=== PATIENT | male | born 1935 | race Caucasian/White ===

== ENCOUNTER 2020-03-29 11:46 | Outpatient (CLI) | payer MEDICARE, SELFPAY ==
--- NOTE | 2020-03-29 12:45 | USCV_ITS ---
Michael Osullivan Age: 84 Gender: M : 1935 Exam Date: 03/29/2020 12:34 Ordering Phys: uSni Luciano MD ([email or web address]) Technologist: Rey Hurtado Exam Location: [facility] [place] Indication: BP: 150 / 78 HR: 51 Rhythm: Sinus Technical Quality: Adequate MEASUREMENTS (Male / Female) Normal Values 2D ECHO LV Diastolic Diameter PLAX 4.5 cm 4.2 - 5.9 / 3.9 - 5.3 cm LV Systolic Diameter PLAX 3.2 cm IVS Diastolic Thickness 1.1 cm 0.6 - 1.0 / 0.6 - 0.9 cm IVS Systolic Thickness 1.7 cm LVPW Diastolic Thickness 1.2 cm 0.6 - 1.0 / 0.6 - 0.9 cm LVPW Systolic Thickness 1.3 cm LVOT Diameter 2.0 cm LV Ejection Fraction 2D Teich 55.6 % LV Ejection Fraction MOD 2C 76.3 % LV Ejection Fraction 2C AL 76.6 % LA Diameter 4.0 cm LA Width 4.6 cm LA Height 5.0 cm RA Width 4.6 cm RA Height 5.2 cm Aorta at Sinotubular Diameter 0.7 cm M-MODE LV Diastolic Diameter MM 5.5 cm 4.2 - 5.9 / 3.9 - 5.3 cm LV Systolic Diameter MM 3.0 cm LV Ejection Fraction MM Teich 76.8 % IVS Diastolic Thickness MM 1.3 cm 0.6 - 1.0 / 0.6 - 0.9 cm IVS Systolic Thickness MM 1.7 cm LVPW Diastolic Thickness MM 1.2 cm 0.6 - 1.0 / 0.6 - 0.9 cm LVPW Systolic Thickness MM 2.0 cm RV Diastolic Diameter MM 2.2 cm Aortic Annulus Diameter 3.9 cm LA Ao Ratio MM 1.1 MV E Point Septal Separation 0.9 cm DOPPLER AV Peak Velocity 210.0 cm/s LVOT Peak Velocity 94.0 cm/s AV Area Cont Eq vti 1.3 cm squared AV Area Cont Eq pk 1.4 cm squared MV Area PHT 1.8 cm squared Mitral E to A Ratio 0.7 MV E' Velocity 80.0 cm/s Mitral E to LV E' Septal Ratio 14.8 TR Peak Velocity 154.3 cm/s TR Peak Gradient 9.5 mmHg TV Peak E Velocity 82.0 cm/s Right Atrial Pressure 3.0 mmHg Pulmonary Artery Systolic Pressu 12.5 mmHg PV Peak Velocity 94.0 cm/s FINDINGS Left Ventricle Normal left ventricular size and systolic function, EF 70 %. Mild left ventricular hypertrophy. No regional wall motion abnormalities. Grade I/IV diastolic dysfunction (abnormal relaxation filling pattern), normal to mildly elevated filling pressures. Right Ventricle Normal right ventricular size and systolic function. Right Atrium Mildly increased right atrial size. Left Atrium Mildly increased left atrial size. Mitral Valve Trace to mild mitral valve regurgitation. Mild mitral annular calcification. Aortic Valve Thickened aortic valve. Tricuspid Valve No gross abnormalities noted Pulmonic Valve No gross abnormalities noted Pericardium No thickening/calcification of the pericardium. Aorta Plaque seen in the ascending aorta. CONCLUSIONS Normal left ventricular size and systolic function, EF 70 %. Mild left ventricular hypertrophy. No regional wall motion abnormalities. Grade I/IV diastolic dysfunction (abnormal relaxation filling pattern), normal to mildly elevated filling pressures. Mild biatrial enlargement Trace to mild mitral valve regurgitation. Mild mitral annular calcification. Thickened aortic valve. There is no pericardial effusion. There are no intracardiac masses. No similar previous studies are available for comparison Dr Suni Luciano MD FACC (Electronically Signed) Final Date: 29 March 2020 17:19 S
== END 2020-03-29 11:47 | disposition home or self-care (01) ==
LOC: US 11:56
PROVIDERS: PCP Family Medicine; Visit Provider Internal Medicine Cardiovascular Disease
DX: I25.10 Atherosclerotic heart disease of native coronary artery without angina pectoris (principal); I08.0 Rheumatic disorders of both mitral and aortic valves
CPT/HCPCS: 93306

== ENCOUNTER 2020-04-21 08:33 | Outpatient (CLI) | payer MEDICARE, SELFPAY ==
[2020-04-21 09:05] VITALS: BMI 26.4
--- NOTE | 2020-04-21 09:33 | ECG_ITS ---
[facility] Test Date: 2020-04-21 Pat Name: Michael Osullivan Department: Room: Gender: Male [employer]: : 1935 Requested By: Suni Luciano Order Number: [id number] Carisa MD: Interpretive Statements Lung unchanged pre/post procedure Intraprocedure shortess of breath Symptoms resoled by discharge [id number]
--- NOTE | 2020-04-21 09:34 | NMCV_ITS ---
NM eliazar perf SPECT r/s* [id number] Michael Osullivan Age: 84 Gender: M : 1935 Exam Date: 04/21/2020 09:55 Ordering Phys: Suni Luciano MD ([email or web address]) Technologist: ROXIE Espino Exam Location: [facility] Indications: ASHD STRESS TEST Please see separate stress test report in [facility] for full findings IMAGE PROTOCOL Rest/Stress 1 Lexiscan Day Radiopharmaceutical Dose (mCi) Administration Site Administered by Rest: Tc-99m 10.6 IV ROXIE Morales Sestamibi Stress:Tc-99m 31.6 IV ROXIE Espino Sestamibi Rest: 21-Apr-2020 60 Discovery 630 Stress: 21-Apr-2020 30 Discovery 630 0.4mg Lexiscan. Images obtained in supine and prone position. SPECT RESULTS Technical Quality: Good Raw Data Analysis: Normal Image Corrections: Patient motion artifact - motion correction applied to rest and stress. Summed Stress Score: 1 Summed Rest Score: 2 Summed Difference Score: 0 PERFUSION FINDINGS Small to moderate area of decreased tracer uptake in the inferior wall regions with no significant reversibility FUNCTIONAL RESULTS (calculated via Gated SPECT) Stress Image LV EF (%): 72 Stress EDV (mL):106 TID: 0.76 Stress ESV (mL):30 FUNCTIONAL FINDINGS: Segmental wall motion analysis revealing no gross wall motion normalities IMPRESSIONS 1. Myocardial perfusion imaging revealing area of slightly decreased persistent tracer uptake in the inferior wall region, suggestive of myocardial scarring versus attenuation artifact. 2. Normal LV ejection fraction of 72%. 3. LV wall motion analysis revealing no gross wall motion normalities. 4. Normal LV volume. No significant coronary ischemia, based on the above findings Dr Suni Luciano MD FACC (Electronically Signed) Final Date: 21 April 2020 20:21 S
--- NOTE | 2020-04-21 11:22 | SUR.PREOP ---
Patient reports no pain or discomfort prior to the start of the procedure.
[2020-04-21] MEDS: regadenoson 0.4 Mg/5 ml Syringe IVP (11:32)
[2020-04-21 11:57] VITALS: BP 163/84; PULSE 65
== END 2020-04-21 08:34 | disposition home or self-care (01) ==
LOC: RAD 08:41 → CDL 08:42
PROVIDERS: PCP Family Medicine; Visit Provider Internal Medicine Cardiovascular Disease
DX: I25.10 Atherosclerotic heart disease of native coronary artery without angina pectoris (principal); R06.02 Shortness of breath
CPT/HCPCS: 78452; 93017; A9500; J2785

== ENCOUNTER 2020-08-18 09:35 | Outpatient (CLI) | payer MEDICARE, SELFPAY ==
--- NOTE | 2020-08-19 07:28 | ONC CON_ITS ---
Dr. Betancourt New Patient Note Patient: Michael Osullivan Unit #: [id number]: 1935 Dicatated By: Jim Betancourt M.D.Date of Visit: Aug 18, 2020 Onc MED New Patient/Consult Referring Physician: Michael Ford Chief Complaint: Bladder cancer. 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 He has a known history of primary membranous glomerulonephritis, initially diagnosed in 2011 and treated with cyclophosphamide. In 2016 he had noncomplete remission after second line treatment with rituximab. During follow-up he has slowly advancing disease, and he has had associated chronic kidney disease with creatinine stable in the range of 2.5 to 3 mg/dL. On 06/21/2020 he had presented to the [facility] emergency room with gross hematuria. His CT abdomen/pelvis showed a lobulated soft tissue density along the posterior aspect of the bladder measuring 6.0 x 5.0 cm. A partly fluid-filled structure projecting directly adjacent to the right posterior paracentral bladder measuring 5.5 x 3.5 cm appeared consistent with a diverticulum. A solid lobulation with the diverticulum measuring 2.0 x 1.5 cm. The findings appeared highly suspicious for bladder malignancy extending into bladder diverticula. There was no retroperitoneal adenopathy or other evidence of metastatic disease. He was seen for urology consultation by Dr. Michael Ford. His outpatient cystoscopy confirmed presence of a bladder lesion. On 07/07/2020 he underwent cystoscopy with transurethral resection and fulguration of bladder neoplasm. The dominant finding was a rounded up lesion centered a little left of the midline posteriorly above the trigone measuring in the 2 to 5 cm diameter range. The remainder of the bladder mucosa appeared normal. The lesion appeared to be superficially necrotic and it appeared to extend more or less into or through the bladder wall as opposed to a surface lesion protruding into the bladder lumen. The lesion was partially resected and it was then fulgurated in its entirety. Pathology showed high-grade neuroendocrine carcinoma. 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 It did show lamina propria invasion. There was no definitive muscularis propria present for assessment. There was no lymphovascular invasion identified. He is seen now for further management. Since his cystoscopy/TURBT procedure he has continued to have some burning with urination, managed adequately with phenazopyridine. He has had no recurrence of hematuria. He has otherwise been feeling fine. 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 He has not had any recent change in his activity tolerance. His ECOG score is 0. His appetite has been good and his weight has been stable. He has no fever or night sweats. He does not complain of shortness of breath, cough, or chest pain. He has no GI complaints. He has no significant joint or bone pain. He does not complain of headache or dizziness. He has no focal neurologic symptoms. Past Medical History: His medical history includes atrial fibrillation, chronic kidney disease, coronary artery disease, gout, history of membranous glomerulonephritis, hypertension, and type II diabetes. Past Surgical History: He underwent cystoscopy with transurethral resection and fulguration of bladder tumor on 07/07/2020. His other surgical/procedural history consists of coronary artery bypass, coronary stent placement, bilateral inguinal hernia repair with mesh in 1997, and left knee surgery for torn cartilage in 1953. Medications: Allopurinol (150 mg) Tablet Oral daily, amLODIPine Besylate (10 mg) Tablet Oral daily, Aspirin 81 Tablet, enteric coated Oral daily, Atorvastatin Calcium (20 mg) Tablet Oral daily, Furosemide (40 mg) Tablet Oral b.i.d., hydrALAZINE HCl (50 mg) Tablet Oral t.i.d., Klor-Con 10 (10 meq) Tablet, controlled release Oral daily, Losartan Potassium (100 mg) Tablet Oral daily Allergies: No Known Allergies. Social History: Mr. Osullivan is . He is originally from [place], but he grew up in [place]. 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 He is retired. He has a history of smoking for a period of about 10 years. He quit by age 26. He does not drink alcohol. Family History: Father at age 64 and mother at age 46, cause unknown to the patient, as they were living in [place]. A sister at age 74. Review Of Symptoms: Constitutional - He has pretty good energy. He is the primary caregiver for his , has dementia. His appetite has been good and his weight is stable. He has no fever or night sweats. ECOG score is 0, Eyes - No change in vision, ENMT - No hearing loss or tinnitus. No sinus congestion/drainage. No mouth sores. No sore throat or difficulty swallowing, Hematologic/Lymphatic - He has noticed that he bruises more easily, Respiratory - No shortness of breath. No cough. No pleuritic pain or hemoptysis, Cardiovascular - No angina pain. No palpitations, Gastrointestinal - No nausea or vomiting. No heartburn or acid reflux. No diarrhea or constipation. No blood in the stool or black stools, Genitourinary (M) - He has had some mild dysuria since the cystoscopy/TURBT. He has had no further hematuria. No urinary frequency. No urgency or incontinence, Musculoskeletal - No joint or bone pain, Integumentary - No skin rash or other skin changes, Neurologic - No headache or dizziness. No numbness or tingling. No other focal neurologic symptoms, Psychiatric - No anxiety or depression. No insomnia. Vital Signs: Performed on Aug 18, 2020 10:51: 0, 0, 0.00, 0.00 sq.m, 98 %, 80 /min, 185 /min (HIGH), 154/69 mm(hg) (HIGH), 97.7 F (LOW), and 164 lbs (HIGH). Physical Examination: Constitutional - He appears to be in good general health, Eyes - Sclerae nonicteric. Conjunctivae clear, ENMT - No lesions noted in the oral cavity, Neck - No mass or thyromegaly, Hematologic/Lymphatic - No cervical, clavicular, or axillary adenopathy, Respiratory - Lungs are clear with good air movement bilaterally, Cardiovascular - Heart rhythm is regular. There is a II/ systolic murmur. There is no gallop or rub noted, Abdomen - Soft and non-tender. Liver and spleen are not enlarged. There is no abdominal mass or ascites noted and there is no inguinal adenopathy, Back/Spine - No spine or CVA tenderness noted, Extremities - There is slight edema. Dorsalis pedis pulses are palpable bilaterally, Integumentary - No rashes. There are a few small actinic lesions on the ears. There are no other suspicious skin lesions noted, Neurologic - No focal neurologic deficits noted. Problem List: 1. High-grade neuroendocrine carcinoma of the urinary bladder. He underwent cystoscopy with transurethral resection and fulguration of the bladder tumor on 07/07/2020. 2. 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 3. Hypertension. 4. Type 2 diabetes, currently not requiring medication. 5. Coronary artery disease with previous coronary artery bypass surgery. 6. Atrial fibrillation. 7. Gout. 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 He underwent cystoscopy with transurethral resection and fulguration of the bladder tumor on 07/07/2020. 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 His management is somewhat problematic in the context of his multiple underlying medical illnesses, most significantly the membranous glomerulonephritis and chronic kidney disease. It is further complicated by the fact that he is the primary caregiver for his , which significantly limits his access to medical care. At least initially I do want to get him set up for staging PET/CT before so I will make sure that he does not have evidence of metastatic disease. If the cancer is localized, I think the best option, per NCCN guidelines, is to proceed with neoadjuvant chemotherapy with carboplatin/etoposide. If he does have a good response to the chemotherapy, he can then proceed to consolidation radiation, assuming we would be able to accommodate his social requirements. That may, however, be very challenging. In the meantime, I also will request next generation sequencing on his tumor, as we ultimately may have to transition to immunotherapy or targeted therapy. Signed By: Jim Betancourt M.D. <<Signature on File>>
== END 2020-08-18 09:36 | disposition home or self-care (01) ==
LOC: ONCMED 09:38
PROVIDERS: PCP Family Medicine; Visit Provider Internal Medicine Medical Oncology
DX: C7A.8 Other malignant neuroendocrine tumors (principal); E11.22 Type 2 diabetes mellitus with diabetic chronic kidney disease; I12.9 Hypertensive chronic kidney disease with stage 1 through stage 4 chronic kidney disease, or unspecified chronic kidney disease; N18.4 Chronic kidney disease, stage 4 (severe); Z87.891 Personal history of nicotine dependence; Z63.6 Dependent relative needing care at home
CPT/HCPCS: 99205

== ENCOUNTER 2020-09-22 09:45 | Outpatient (CLI) | payer MEDICARE, MEDICAID, SELFPAY ==
[2020-09-22 10:51] LABS: Basophils # 0.1 10^3/uL (0.0-0.1); Basophils % 0.5 %; Eosinophils # 0.1 10^3/uL (0.0-0.8); Eosinophils % 0.9 %; Hematocrit 24.9 % (42.0-52.0); Hemoglobin 7.6 g/dL (11.7-16.6); Lymphocytes # 1.3 10^3/uL (0.8-4.8); Lymphocytes % 13.5 %; Mean Corpuscular HGB Conc 30.5 g/dL (30.0-36.0); Mean Corpuscular Hemoglobin 27.8 pg (28.0-34.0); Mean Corpuscular Volume 91.2 fL (80-94); Mean Platelet Volume 9.4 fL (7.4-10.4); Monocytes # 0.5 10^3/uL (0.2-0.9); Monocytes % 5.3 %; Neutrophils # 7.59 10^3/uL (1.8-7.7); Neutrophils % 79.2 %; Nucleated Red Blood Cells % 0 %; Platelet Count 232 10^3/cmm (130-400); Red Blood Count 2.73 10^6/uL (4.1-5.3); Red Cell Distribution Width 14.6 % (12.1-15.1); White Blood Count 9.6 10^3/uL (4.0-10.0)
[2020-09-22 11:16] LABS: Alanine Aminotransferase 6 U/L (0-41); Albumin Level 3.7 g/dL (3.5-5.2); Alkaline Phosphatase 91 IU/L (40-130); Anion Gap 18.3 (5-19); Aspartate Amino Transferase 10 U/L (0-40); Blood Urea Nitrogen 71 mg/dL (8-23); Calcium 8.9 mg/dL (8.5-10.5); Carbon Dioxide 22 mmol/L (22-29); Chloride 105 mmol/L (98-107); Globulin 2.5 g/dL (1.3-4.6); Glucose 131 mg/dL (65-115); Osmolality Calculated 315 mOsm/kg (285-295); Potassium 4.3 mmol/L (3.5-5.1); Sodium 141 mmol/L (136-145); Total Bilirubin 0.4 mg/dL (0.15-1.2); Total Protein 6.2 g/dL (6.6-8.7)
[2020-09-22 12:10] LABS: Iron 17 ug/dL (59-158); Percent Saturation 5.9 % (20-50); Total Iron Binding Capacity 284 mcg/dl; Unsaturated Iron Binding 267 ug/dL (112-347)
[2020-09-22] MEDS: sodium chloride 0.9% 250 ML 75 ML IV (12:10)
[2020-09-22 12:27] LABS: Vitamin B12 699 pg/mL (232-1245)
[2020-09-22] MEDS: ondansetron 2 mg/ML SDV 2 mL 8 MG IV (12:30)
[2020-09-22 15:00] VITALS: BP 138/65; PULSE 81; RESP 18; TEMP 37.1; O2SAT 95
[2020-09-22] MEDS: acetaminophen 325 mg Tablet 650 MG PO (15:00)
[2020-09-22] MEDS: diphenhydrAMINE 25 mg Capsule PO (15:00)
[2020-09-22 15:15] VITALS: BP 123/55; PULSE 66; RESP 18; TEMP 37.1; O2SAT 95
[2020-09-22 15:30] VITALS: BP 135/76; PULSE 73; RESP 18; TEMP 37.1; O2SAT 96
[2020-09-22 16:00] VITALS: BP 120/75; PULSE 70; RESP 18; TEMP 37.2; O2SAT 96
[2020-09-22 16:34] VITALS: BP 144/78; PULSE 76; RESP 18; TEMP 36.7; O2SAT 96
== END 2020-09-22 09:46 | disposition home or self-care (01) ==
LOC: ONCMED 09:48
PROVIDERS: PCP Family Medicine; Visit Provider Internal Medicine Medical Oncology
DX: Z51.11 Encounter for antineoplastic chemotherapy (principal); C67.8 Malignant neoplasm of overlapping sites of bladder; Z79.899 Other long term (current) drug therapy
CPT/HCPCS: 36430; 80053; 82607; 83540; 83550; 85025; 86850; 86900; 86920; 96367; 96375; 96413; 96417; J1100; J2405; J7040; J7050; J9045; J9181; P9016

== ENCOUNTER 2020-09-28 15:00 | Outpatient (CLI) | payer MEDICARE, SELFPAY ==
[2020-09-28 19:06] LABS: Basophils % 0.6 %; Eosinophils % 0.3 %; Hematocrit 24.7 % (42.0-52.0); Hemoglobin 7.3 g/dL (11.7-16.6); Lymphocytes # 1.3 10^3/uL (0.8-4.8); Lymphocytes % 21.1 %; Mean Corpuscular HGB Conc 29.6 g/dL (30.0-36.0); Mean Corpuscular Hemoglobin 26.9 pg (28.0-34.0); Mean Corpuscular Volume 91.1 fL (80-94); Mean Platelet Volume 10.2 fL (7.4-10.4); Monocytes # 0.1 10^3/uL (0.2-0.9); Monocytes % 1.1 %; Neutrophils # 4.81 10^3/uL (1.8-7.7); Neutrophils % 75.6 %; Nucleated Red Blood Cells % 0 %; Platelet Count 181 10^3/cmm (130-400); Red Blood Count 2.71 10^6/uL (4.1-5.3); Red Cell Distribution Width 14.1 % (12.1-15.1); White Blood Count 6.4 10^3/uL (4.0-10.0)
[2020-09-28 19:25] LABS: Iron 169 ug/dL (59-158); Percent Saturation 71.3 % (20-50); Total Iron Binding Capacity 237 mcg/dl; Unsaturated Iron Binding 68 ug/dL (112-347)
[2020-09-28 19:41] LABS: Vitamin B12 549 pg/mL (232-1245)
== END 2020-09-28 15:01 ==
LOC: ONCMED 09-29 09:15
PROVIDERS: PCP Family Medicine; Visit Provider Internal Medicine Medical Oncology
DX: C67.8 Malignant neoplasm of overlapping sites of bladder (principal)
CPT/HCPCS: 82607; 83540; 83550; 85025

== ENCOUNTER 2020-10-05 14:44 | Outpatient (CLI) | payer MEDICARE, SELFPAY ==
[2020-10-05 18:53] LABS: Eosinophils # 0.1 10^3/uL (0.0-0.8); Eosinophils % 6.1 %; Hematocrit 22.7 % (42.0-52.0); Hemoglobin 6.9 g/dL (11.7-16.6); Mean Corpuscular HGB Conc 30.4 g/dL (30.0-36.0); Mean Corpuscular Hemoglobin 27.3 pg (28.0-34.0); Mean Corpuscular Volume 89.7 fL (80-94); Mean Platelet Volume 10.9 fL (7.4-10.4); Monocytes # 0.1 10^3/uL (0.2-0.9); Monocytes % 5.3 %; Neutrophils % 1.7 %; Nucleated Red Blood Cells % 0 %; Platelet Count 61 10^3/cmm (130-400); Red Blood Count 2.53 10^6/uL (4.1-5.3); Red Cell Distribution Width 13.6 % (12.1-15.1); White Blood Count 1.1 10^3/uL (4.0-10.0)
[2020-10-05 18:59] LABS: Neutrophils # 0.02 10^3/uL (1.8-7.7)
[2020-10-05 19:34] LABS: Alanine Aminotransferase 8 U/L (0-41); Albumin Level 3.6 g/dL (3.5-5.2); Alkaline Phosphatase 87 IU/L (40-130); Anion Gap 14.5 (5-19); Aspartate Amino Transferase 8 U/L (0-40); Blood Urea Nitrogen 66 mg/dL (8-23); Carbon Dioxide 23 mmol/L (22-29); Chloride 106 mmol/L (98-107); Globulin 2.1 g/dL (1.3-4.6); Glucose 158 mg/dL (65-115); Osmolality Calculated 310 mOsm/kg (285-295); Potassium 4.5 mmol/L (3.5-5.1); Sodium 139 mmol/L (136-145); Total Bilirubin 0.2 mg/dL (0.15-1.2); Total Protein 5.7 g/dL (6.6-8.7)
[2020-10-05 20:08] LABS: Calcium 8.2 mg/dL (8.5-10.5)
== END 2020-10-05 14:45 | disposition home or self-care (01) ==
LOC: ONCMED 10-06 09:14
PROVIDERS: PCP Family Medicine; Visit Provider Internal Medicine Medical Oncology
DX: C67.8 Malignant neoplasm of overlapping sites of bladder (principal)
CPT/HCPCS: 80053; 85025

== ENCOUNTER 2020-10-07 06:17 | Outpatient (CLI) | payer MEDICARE, MEDICAID, SELFPAY ==
[2020-10-07] VITALS (11 sets, daily range): BP systolic 126–134; BP diastolic 57–69; PULSE 64–69; RESP 18; TEMP 36.6–37.1; O2SAT 97–98
[2020-10-07] MEDS: diphenhydrAMINE 25 mg Capsule PO (10:45)
[2020-10-07] MEDS: sodium chloride 0.9% 250 ML 999 ML IV (10:45)
[2020-10-07] MEDS: acetaminophen 325 mg Tablet 650 MG PO (10:45)
[2020-10-07] MEDS: FUROsemide 10 mg/mL SDV 2mL 20 MG IV (12:55)
== END 2020-10-07 06:18 | disposition home or self-care (01) ==
LOC: ONCMED 06:19
PROVIDERS: PCP Family Medicine; Visit Provider Internal Medicine Medical Oncology
DX: C67.8 Malignant neoplasm of overlapping sites of bladder (principal)
CPT/HCPCS: 36430; 86850; 86900; 86920; J1940; J7050; P9040

== ENCOUNTER 2020-10-12 14:21 | Outpatient (CLI) | payer MEDICARE, SELFPAY ==
[2020-10-12 18:07] LABS: Basophils % 0.3 %; Eosinophils % 0.6 %; Hematocrit 27.6 % (42.0-52.0); Hemoglobin 8.5 g/dL (11.7-16.6); Lymphocytes # 1.4 10^3/uL (0.8-4.8); Lymphocytes % 41.1 %; Mean Corpuscular HGB Conc 30.8 g/dL (30.0-36.0); Mean Corpuscular Hemoglobin 27.8 pg (28.0-34.0); Mean Corpuscular Volume 90.2 fL (80-94); Mean Platelet Volume 10.1 fL (7.4-10.4); Monocytes # 0.4 10^3/uL (0.2-0.9); Monocytes % 13.1 %; Neutrophils # 1.35 10^3/uL (1.8-7.7); Neutrophils % 40.1 %; Nucleated Red Blood Cells % 0 %; Platelet Count 85 10^3/cmm (130-400); Red Blood Count 3.06 10^6/uL (4.1-5.3); Red Cell Distribution Width 13.8 % (12.1-15.1); White Blood Count 3.4 10^3/uL (4.0-10.0)
[2020-10-12 18:40] LABS: Alanine Aminotransferase 7 U/L (0-41); Albumin Level 3.4 g/dL (3.5-5.2); Alkaline Phosphatase 81 IU/L (40-130); Anion Gap 12.8 (5-19); Aspartate Amino Transferase 10 U/L (0-40); Blood Urea Nitrogen 39 mg/dL (8-23); Calcium 8.1 mg/dL (8.5-10.5); Carbon Dioxide 26 mmol/L (22-29); Chloride 104 mmol/L (98-107); Glucose 141 mg/dL (65-115); Osmolality Calculated 300 mOsm/kg (285-295); Potassium 3.8 mmol/L (3.5-5.1); Sodium 139 mmol/L (136-145); Total Bilirubin 0.2 mg/dL (0.15-1.2); Total Protein 5.4 g/dL (6.6-8.7)
== END 2020-10-12 14:22 | disposition home or self-care (01) ==
LOC: ONCMED 10-13 08:27
PROVIDERS: PCP Family Medicine; Visit Provider Internal Medicine Medical Oncology
DX: C67.8 Malignant neoplasm of overlapping sites of bladder (principal)
CPT/HCPCS: 80053; 85025

== ENCOUNTER 2020-10-19 14:18 | Outpatient (CLI) | payer MEDICARE, SELFPAY ==
[2020-10-19 16:43] LABS: Alanine Aminotransferase < 5 U/L (0-41); Albumin Level 3.2 g/dL (3.5-5.2); Alkaline Phosphatase 87 IU/L (40-130); Anion Gap 14.1 (5-19); Aspartate Amino Transferase 12 U/L (0-40); Blood Urea Nitrogen 37 mg/dL (8-23); Calcium 7.9 mg/dL (8.5-10.5); Carbon Dioxide 25 mmol/L (22-29); Chloride 104 mmol/L (98-107); Globulin 2.2 g/dL (1.3-4.6); Glucose 118 mg/dL (65-115); Osmolality Calculated 298 mOsm/kg (285-295); Potassium 4.1 mmol/L (3.5-5.1); Sodium 139 mmol/L (136-145); Total Bilirubin 0.2 mg/dL (0.15-1.2); Total Protein 5.4 g/dL (6.6-8.7)
[2020-10-19 16:51] LABS: Basophils % 0.5 %; Eosinophils % 0.2 %; Hematocrit 29.7 % (42.0-52.0); Hemoglobin 9.2 g/dL (11.7-16.6); Lymphocytes # 1.6 10^3/uL (0.8-4.8); Lymphocytes % 27.2 %; Mean Corpuscular Hemoglobin 28.8 pg (28.0-34.0); Mean Corpuscular Volume 92.8 fL (80-94); Mean Platelet Volume 9.4 fL (7.4-10.4); Monocytes # 0.6 10^3/uL (0.2-0.9); Monocytes % 10.2 %; Neutrophils # 3.41 10^3/uL (1.8-7.7); Nucleated Red Blood Cells % 0 %; Platelet Count 259 10^3/cmm (130-400); Red Cell Distribution Width 16.8 % (12.1-15.1); White Blood Count 5.7 10^3/uL (4.0-10.0)
== END 2020-10-19 14:19 | disposition home or self-care (01) ==
PROVIDERS: PCP Family Medicine; Visit Provider Internal Medicine Medical Oncology
DX: C67.8 Malignant neoplasm of overlapping sites of bladder (principal)
CPT/HCPCS: 80053; 85025

== ENCOUNTER 2020-10-20 08:49 | Outpatient (CLI) | payer MEDICARE, MEDICAID, SELFPAY ==
[2020-10-20] MEDS: sodium chloride 0.9% 250 ML 75 ML IV (11:24)
[2020-10-20] MEDS: ondansetron 2 mg/ML SDV 2 mL 8 MG IV (11:24)
--- NOTE | 2020-11-02 07:34 | ONC FU_ITS ---
[facility] Patient Note Patient: Michael Osullivan Unit #: [id number]: 1935 Dictated By: Vandana DockeryDate of Visit: Oct 20, 2020 Onc MED Follow-Up/Prog Note Chief Complaint: Bladder cancer. 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 He has a known history of primary membranous glomerulonephritis, initially diagnosed in 2011 and treated with cyclophosphamide. In 2016 he had noncomplete remission after second line treatment with rituximab. During follow-up he has slowly advancing disease, and he has had associated chronic kidney disease with creatinine stable in the range of 2.5 to 3 mg/dL. On 06/21/2020 he had presented to the [facility] emergency room with gross hematuria. His CT abdomen/pelvis showed a lobulated soft tissue density along the posterior aspect of the bladder measuring 6.0 x 5.0 cm. A partly fluid-filled structure projecting directly adjacent to the right posterior paracentral bladder measuring 5.5 x 3.5 cm appeared consistent with a diverticulum. A solid lobulation with the diverticulum measuring 2.0 x 1.5 cm. The findings appeared highly suspicious for bladder malignancy extending into bladder diverticula. There was no retroperitoneal adenopathy or other evidence of metastatic disease. He was seen for urology consultation by Dr. Michael Ford. His outpatient cystoscopy confirmed presence of a bladder lesion. On 07/07/2020 he underwent cystoscopy with transurethral resection and fulguration of bladder neoplasm. The dominant finding was a rounded up lesion centered a little left of the midline posteriorly above the trigone measuring in the 2 to 5 cm diameter range. The remainder of the bladder mucosa appeared normal. The lesion appeared to be superficially necrotic and it appeared to extend more or less into or through the bladder wall as opposed to a surface lesion protruding into the bladder lumen. The lesion was partially resected and it was then fulgurated in its entirety. Pathology showed high-grade neuroendocrine carcinoma. 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 It did show lamina propria invasion. There was no definitive muscularis propria present for assessment. There was no lymphovascular invasion identified. Mr Osullivan was by Dr Betancourt on 08/18/2020 for further management. Since his cystoscopy/TURBT procedure he had continued to have some burning with urination, managed adequately with phenazopyridine. He had no recurrence of hematuria. He had otherwise been feeling fine. 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 He had PET/CT imaging on 08/28/2020 which reported a posterior bladder mass measuring 7.9 x 5.8 cm with markedly increased FDG activity; however malignant uptake cannot be differentiated from physiologic urinary activity. A right sided bladder diverticulum measured 2.2 x 4.4 cm. Subcentimeter pelvic nodes are too small to characterize. There were no findings for metastatic disease. Also Caris next generation sequencing was reported on August 31, 2020. Results with therapy associations biomarker TMB result was high, 11 mut/mb which reports benefit with pembrolizumab. The MSI was stable, mismatch repair status was proficient and NTRK 1/2/3 fusion not detected; PD-L1 been disease SP1 42) was negative; AP 300 pathogenic variant exon 26 p.[id number]; KMT2D pathogenic variant exon 31 p.[id number]; K-carolyn pathogenic variant exon 2 p.G12V; RB1 pathogenic variant exon 19 p.G61/fs; T p53 pathogenic variant exon/ p.[id number]. The MSI was reported as stable, tumor mutational burden was high at 11 and genomic loss of heterozygosity was low at 12%. Immunohistochemistry results reported MLH1 positive MSH2 positive MSH6 positive PD-L1 (SP142) negative; PMS2 positive. With those results Mr. Osullivan was offered treatment with carboplatin etoposide. His etoposide is oral given his caregiver status for his with dementia and that he cannot present to the office on day 2 and 3. He began his first cycle on September 22, 2020. His hemoglobin at that time was 7.6. He presented for labs on October 05, 2020 at which time his hemoglobin was 6.9, his platelet count was 61,000 and his ANC was 20. He did receive 2 units of packed red blood cells on October 07, 2020. His lab recheck on October 12, 2020 reported a hemoglobin of 8.5, platelet count of 85,000 and ANC of 1350 without growth factor support. He was asymptomatic. Mr. Osullivan is here today for follow-up. He is due for cycle 2-day 1 carboplatin etoposide. He has no new concerns today. He states overall he is doing well. He continues to care for his at home and is doing this well. He denies any new pain. He has had no fever or chills. He denies any mouth sores, sore throat or difficulty swallowing. He denies any orthopnea, cough or hemoptysis. He denies chest pain or palpitations. He states his appetite is good his energy is fair. He states he does get tired but recovers well with rest. He denies any diarrhea or constipation. He denies any peripheral neuropathy symptoms at this time. His ECOG is 1. Past Medical History: Atrial fibrillation Chronic kidney disease Coronary artery disease Gout History of membranous glomerulonephritis Hypertension Type II diabetes Past Surgical History: Coronary artery bypass Coronary stent placement Cystoscopy with transurethral resection and fulguration of bladder tumor in 2020 Bilateral inguinal hernia repair with mesh in 1997 Left knee surgery for torn cartilage in 1953 Allergies: No Known Allergies. Medications: Allopurinol (150 mg) Tablet Oral daily amLODIPine Besylate (10 mg) Tablet Oral daily Aspirin 81 Tablet, enteric coated Oral daily Atorvastatin Calcium (20 mg) Tablet Oral daily Furosemide (40 mg) Tablet Oral b.i.d. hydrALAZINE HCl (50 mg) Tablet Oral t.i.d. Klor-Con 10 (10 meq) Tablet, controlled release Oral daily Losartan Potassium (100 mg) Tablet Oral daily Family History: Father at age 64 and mother at age 46, cause unknown to the patient, as they were living in [place]. A sister at age 74. Social History: Mr. Osullivan is . Mr. Osullivan has never smoked. He has no history of drinking. He is originally from [place], but he grew up in [place]. 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 He is retired. He has a history of smoking for a period of about 10 years. He quit by age 26. He does not drink alcohol. Review Of Symptoms: <See Above> Vital Signs: Performed on Oct 20, 2020 10:25 Height - 70.00 in Weight - 160.0 lbs (LOW) BSA - 1.90 sq.m BMI - 22.96 Temperature - 98.4 F Pulse - 70 /min Respiration - 18 /min BP - 150/62 mm(hg) (HIGH) O2 Sat - 97 % Pain - 0,1 - No physically strenuous activity, but ambulatory and able to carry out light or sedentary work (e.g. office work, light house work). (ECOG) Physical Examination: Constitutional Alert, oriented, no acute distress. Skin pink, warm and dry. Head Normocephalic; atraumatic. Eyes Conjunctivae and sclerae are clear and without icterus. Pupils are reactive and equal. ENMT No oral exudates, ulcers, masses, thrush or mucositis. Oropharynx clear. Tongue normal. Neck Supple without masses or thyromegaly. No jugular venous distension. Hematologic/Lymphatic No petechiae or purpura. No tender or palpable lymph nodes in the cervical or supraclavicular areas. Respiratory Lungs are clear to auscultation without rhonchi or wheezing. Cardiovascular Regular rate and rhythm of heart without murmurs,clicks, gallops or rubs. Abdomen Non-tender, non-distended, no masses or ascites. Good bowel sounds noted in all quads. No guarding or rebound tenderness. No pulsatile masses. Back/Spine Non-tender to palpation. Extremities No visible deformities, no cyanosis, clubbing or edema. Musculoskeletal No tenderness or swelling, normal range of motion without obvious weakness. Integumentary No rashes or lesions. Neurologic No sensory or motor deficits, normal cerebellar function, normal gait. Psychiatric Alert and oriented times three. Coherent speech. Verbalizes understanding of our discussions today. Laboratory:Test performed on Oct 20, 2020 10:51 Creatinine 2.4 mg/dL Cr Clearance (Est) 24.11 mL/min Impression: 1. High-grade neuroendocrine carcinoma of the urinary bladder. He underwent cystoscopy with transurethral resection and fulguration of the bladder tumor on 07/07/2020. 2. 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 3. Hypertension. 4. Type 2 diabetes, currently not requiring medication. 5. Coronary artery disease with previous coronary artery bypass surgery. 6. Atrial fibrillation. 7. Gout. Plan/Problems Addressed at this Visit: 1. High-grade neuroendocrine carcinoma of the urinary bladder. He underwent cystoscopy with transurethral resection and fulguration of the bladder tumor on 07/07/2020. 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 His management is somewhat problematic in the context of his multiple underlying medical illnesses, most significantly the membranous glomerulonephritis and chronic kidney disease. It is further complicated by the fact that he is the primary caregiver for his , which significantly limits his access to medical care. He had PET/CT imaging on 08/28/2020 which reported a posterior bladder mass measuring 7.9 x 5.8 cm with markedly increased FDG activity; however malignant uptake cannot be differentiated from physiologic urinary activity. A right sided bladder diverticulum measured 2.2 x 4.4 cm. Subcentimeter pelvic nodes are too small to characterize. There were no findings for metastatic disease. Also Caris next generation sequencing was reported on August 31, 2020. Results with therapy associations biomarker TMB result was high, 11 mut/mb which reports benefit with pembrolizumab. The MSI was stable, mismatch repair status was proficient and NTRK 1/2/3 fusion not detected; PD-L1 been disease SP1 42) was negative; AP 300 pathogenic variant exon 26 p.[id number]; KMT2D pathogenic variant exon 31 p.[id number]; K-carolyn pathogenic variant exon 2 p.G12V; RB1 pathogenic variant exon 19 p.G61/fs; T p53 pathogenic variant exon/ p.[id number]. The MSI was reported as stable, tumor mutational burden was high at 11 and genomic loss of heterozygosity was low at 12%. Immunohistochemistry results reported MLH1 positive MSH2 positive MSH6 positive PD-L1 (SP142) negative; PMS2 positive. With those results Mr. Osullivan was offered neoadjuvant chemotherapy with carboplatin/etoposide. His etoposide is oral given his caregiver status for his with dementia and that he cannot present to the office on day 2 and 3. He began his first cycle on September 22, 2020. His hemoglobin at that time was 7.6. He presented for labs on October 05, 2020 at which time his hemoglobin was 6.9, his platelet count was 61,000 and his ANC was 20. He did receive 2 units of packed red blood cells on October 07, 2020. His lab recheck on October 12, 2020 reported a hemoglobin of 8.5, platelet count of 85,000 and ANC of 1350 without growth factor support. He was asymptomatic. Per Dr Betancourt's July 2020 note, if he does have a good response to the chemotherapy, he can then proceed to consolidation radiation, assuming we would be able to accommodate his social requirements. That may, however, be very challenging. A. Proceed with cycle 2 carboplatin etoposide. B. Continue current antiemetics as they are working well. C. Labs from October 19, 2020 were reviewed in detail and discussed with Mr. Osullivan and a copy was given to him. WBC 5.7, hemoglobin 9.2, platelets 10 59,000, ANC is 3410. Potassium 4.1 random glucose 118 creatinine improved at 2.4 calcium 7.8 LFTs are normal. D. I have requested a PA for Neupogen to be started on October 25 as he does do oral etoposide at home and we have no way to administer Neulasta even the Onpro over the weekend. He did have chemotherapy-induced neutropenia with an ANC of 20 with cycle 1. He reported no symptoms and there is no evidence of any local emergency room visits during that time. E. I have asked for weekly CBC CMP. F. He is due for CT of the abdomen pelvis without contrast in 3 weeks for follow-up of neuroendocrine cancer after 2 cycles of chemotherapy. G. We will plan to see him back in 4 weeks with CBC CMP at which time we will review the CT of the abdomen pelvis and determine further plan of care. H. Mr. Osullivan was encouraged to contact us in the interim should questions or problems arise. I. Total time spent on Mr. Mckee care today including review of his records prior to his visit, discussion of his current treatment plan and side effect of medication/management and post visit documentation was 55 minutes. Signed By: Vandana Dockery-, [facility] Jim Betancourt MD <<Signature on File>>
== END 2020-10-20 08:50 | disposition home or self-care (01) ==
PROVIDERS: PCP Family Medicine; Visit Provider Internal Medicine Medical Oncology
DX: Z51.11 Encounter for antineoplastic chemotherapy (principal); C67.8 Malignant neoplasm of overlapping sites of bladder; I48.20 Chronic atrial fibrillation, unspecified; E11.22 Type 2 diabetes mellitus with diabetic chronic kidney disease; N18.9 Chronic kidney disease, unspecified; E11.59 Type 2 diabetes mellitus with other circulatory complications; I25.10 Atherosclerotic heart disease of native coronary artery without angina pectoris; M10.9 Gout, unspecified; I10 Essential (primary) hypertension; N05.2 Unspecified nephritic syndrome with diffuse membranous glomerulonephritis; Z79.899 Other long term (current) drug therapy
CPT/HCPCS: 96367; 96413; 96417; 99215; J1100; J2405; J7040; J7050; J9045; J9181

== ENCOUNTER 2020-10-26 13:15 | Outpatient (CLI) | payer MEDICARE, MEDICAID, SELFPAY ==
[2020-10-26 15:40] LABS: Basophils # 0.1 10^3/uL (0.0-0.1); Basophils % 1.3 %; Eosinophils % 0.3 %; Hematocrit 29.4 % (42.0-52.0); Hemoglobin 9.2 g/dL (11.7-16.6); Lymphocytes # 1.2 10^3/uL (0.8-4.8); Mean Corpuscular HGB Conc 31.3 g/dL (30.0-36.0); Mean Corpuscular Hemoglobin 29.6 pg (28.0-34.0); Mean Corpuscular Volume 94.5 fL (80-94); Mean Platelet Volume 9.4 fL (7.4-10.4); Neutrophils # 2.58 10^3/uL (1.8-7.7); Neutrophils % 65.6 %; Nucleated Red Blood Cells % 0 %; Platelet Count 227 10^3/cmm (130-400); Red Blood Count 3.11 10^6/uL (4.1-5.3); White Blood Count 3.9 10^3/uL (4.0-10.0)
[2020-10-26 16:30] LABS: Alanine Aminotransferase 6 U/L (0-41); Albumin Level 3.4 g/dL (3.5-5.2); Alkaline Phosphatase 89 IU/L (40-130); Anion Gap 13.3 (5-19); Aspartate Amino Transferase 15 U/L (0-40); Blood Urea Nitrogen 34 mg/dL (8-23); Carbon Dioxide 24 mmol/L (22-29); Chloride 106 mmol/L (98-107); Globulin 2.1 g/dL (1.3-4.6); Glucose 130 mg/dL (65-115); Osmolality Calculated 297 mOsm/kg (285-295); Potassium 4.3 mmol/L (3.5-5.1); Sodium 139 mmol/L (136-145); Total Bilirubin 0.5 mg/dL (0.15-1.2); Total Protein 5.5 g/dL (6.6-8.7)
[2020-10-26 16:41] LABS: Slide Review Slide Review Perform
== END 2020-10-26 13:16 | disposition home or self-care (01) ==
PROVIDERS: PCP Family Medicine; Visit Provider Nurse Practitioner
DX: C67.8 Malignant neoplasm of overlapping sites of bladder (principal)
CPT/HCPCS: 80053; 85025

== ENCOUNTER 2020-10-29 08:55 | Outpatient (CLI) | payer MEDICARE, MEDICAID, SELFPAY ==
--- NOTE | 2020-10-29 09:14 | CT_ITS ---
WS: [id number] CT scan of the abdomen and pelvis with Oral and without IV contrast. Additional two-dimensional coron al and sagittal reconstruction was performed. 10/29/2020 Clinical Data: NEUROENDOCRINE CANCER OF THE BLADDER Comparison: CT abdomen and pelvis, 06/21/2020. DLP: 787.[address] scans at [facility] use at least one of these dose optimization techniques: automat ed exposure control; mA and/or kV adjustment per patient size (includes targeted exams where dose is matched to clinical indication); or iterative reconstruction. Findings: The lower lungs show no nodules, masses or effusions. There is a large hiatal hernia. The liver, spleen, adrenal glands and pancreas are normal. There are numerous gallstones in the gallb ladder. The kidneys show no cysts, masses, hydronephrosis or renal calculi. The abdominal aorta is normal in size with calcification of the wall. No appendicitis or diverticulitis is seen. There are numerous diverticula in the descending and sigmo id colons. Oral contrast is in the stomach, small bowel and colon and there is no bowel dilatation. No abscess, adenopathy, ascites, mass, obstruction or free air is seen. The bladder demonstrates a posterior mass which measures up to 0.8 x 9.6 cm. There is a right bladder diverticulum measuring 2.1 x 4.9 cm. No inguinal hernia is seen. 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 No bony metastatic lesions are seen. CT/CT abdomen pelvis wo con [id number] Impression: 1. Posterior bladder mass which may be larger when compared to prior exam. Cholelithiasis and hiatal hernia. 3. Negative for bony metastatic lesions.
[2020-10-29] MEDS: iohexol 300 mg/mL 50 mL Btl PO (09:55)
== END 2020-10-29 08:56 | disposition home or self-care (01) ==
PROVIDERS: PCP Family Medicine; Visit Provider Nurse Practitioner
DX: C67.8 Malignant neoplasm of overlapping sites of bladder (principal); K80.20 Calculus of gallbladder without cholecystitis without obstruction; K44.9 Diaphragmatic hernia without obstruction or gangrene
CPT/HCPCS: 74176; Q9967

== ENCOUNTER 2020-11-17 05:37 | Outpatient (RCR) | payer MEDICARE, MEDICAID, SELFPAY ==
[2020-11-02 14:45] LABS: Basophils % 0.6 %; Eosinophils % 1.8 %; Hematocrit 25.6 % (42.0-52.0); Hemoglobin 8.1 g/dL (11.7-16.6); Lymphocytes # 1.4 10^3/uL (0.8-4.8); Lymphocytes % 83.3 %; Mean Corpuscular HGB Conc 31.6 g/dL (30.0-36.0); Mean Corpuscular Hemoglobin 28.8 pg (28.0-34.0); Mean Corpuscular Volume 91.1 fL (80-94); Mean Platelet Volume 10.1 fL (7.4-10.4); Monocytes # 0.1 10^3/uL (0.2-0.9); Monocytes % 3.6 %; Neutrophils % 10.7 %; Nucleated Red Blood Cells % 0 %; Platelet Count 64 10^3/cmm (130-400); Red Blood Count 2.81 10^6/uL (4.1-5.3); Red Cell Distribution Width 15.4 % (12.1-15.1); White Blood Count 1.7 10^3/uL (4.0-10.0)
[2020-11-02 15:32] LABS: Neutrophils # 0.18 10^3/uL (1.8-7.7)
[2020-11-02 15:33] LABS: Slide Review Slide Review Perform
[2020-11-02 15:54] LABS: Alanine Aminotransferase 13 U/L (0-41); Albumin Level 3.5 g/dL (3.5-5.2); Alkaline Phosphatase 99 IU/L (40-130); Anion Gap 13.5 (5-19); Aspartate Amino Transferase 16 U/L (0-40); Blood Urea Nitrogen 42 mg/dL (8-23); Calcium 7.9 mg/dL (8.5-10.5); Carbon Dioxide 23 mmol/L (22-29); Chloride 105 mmol/L (98-107); Globulin 2.1 g/dL (1.3-4.6); Glucose 124 mg/dL (65-115); Osmolality Calculated 298 mOsm/kg (285-295); Potassium 3.5 mmol/L (3.5-5.1); Sodium 138 mmol/L (136-145); Total Bilirubin 0.2 mg/dL (0.15-1.2); Total Protein 5.6 g/dL (6.6-8.7)
[2020-11-03] MEDS: acetaminophen 325 mg Tablet 650 MG PO (11:00)
[2020-11-03] MEDS: sodium chloride 0.9% 250 ML 999 ML IV (11:00)
[2020-11-03] MEDS: diphenhydrAMINE 25 mg Capsule PO (11:00)
[2020-11-03 11:10] VITALS: BP 143/68; PULSE 52; RESP 18; TEMP 36.6; O2SAT 98
[2020-11-03 11:25] VITALS: BP 138/65; PULSE 50; RESP 18; TEMP 36.6; O2SAT 98
[2020-11-03 11:40] VITALS: BP 128/64; PULSE 52; RESP 18; TEMP 36.6; O2SAT 98
[2020-11-03 12:10] VITALS: BP 131/62; PULSE 52; RESP 18; TEMP 36.6; O2SAT 98
[2020-11-03 12:55] VITALS: BP 138/64; PULSE 52; RESP 18; TEMP 36.6; O2SAT 98
[2020-11-03] MEDS: FUROsemide 10 mg/mL SDV 2mL 20 MG IV (12:55)
[2020-11-03 14:25] VITALS: BP 140/70; PULSE 54; RESP 18; TEMP 36.6; O2SAT 98
[2020-11-09 16:51] LABS: Hematocrit 30.4 % (42.0-52.0); Hemoglobin 9.9 g/dL (11.7-16.6); Mean Corpuscular HGB Conc 32.6 g/dL (30.0-36.0); Mean Corpuscular Hemoglobin 29.8 pg (28.0-34.0); Mean Corpuscular Volume 91.6 fL (80-94); Mean Platelet Volume 9.9 fL (7.4-10.4); Platelet Count 95 10^3/cmm (130-400); Red Blood Count 3.32 10^6/uL (4.1-5.3); Red Cell Distribution Width 15.8 % (12.1-15.1); White Blood Count 6.9 10^3/uL (4.0-10.0)
[2020-11-09 17:07] LABS: Alanine Aminotransferase 7 U/L (0-41); Albumin Level 3.5 g/dL (3.5-5.2); Alkaline Phosphatase 109 IU/L (40-130); Anion Gap 14.6 (5-19); Aspartate Amino Transferase 13 U/L (0-40); Blood Urea Nitrogen 31 mg/dL (8-23); Carbon Dioxide 26 mmol/L (22-29); Chloride 105 mmol/L (98-107); Globulin 2.1 g/dL (1.3-4.6); Glucose 131 mg/dL (65-115); Osmolality Calculated 302 mOsm/kg (285-295); Potassium 3.6 mmol/L (3.5-5.1); Sodium 142 mmol/L (136-145); Total Bilirubin 0.2 mg/dL (0.15-1.2); Total Protein 5.6 g/dL (6.6-8.7)
[2020-11-09 17:12] LABS: Slide Review Slide Review Perform
[2020-11-09 18:39] LABS: Absolute Segmented Neutrophil 1.9 10/cmm (1.6-7.1); Band Neutrophils Absolute 0.8 10^3/cmm (0.0-1.2); Eosinophils 0 %; Lymphocytes 38 %; Lymphocytes Absolute 2.7 10^3/cmm (1.2-3.4); Monocytes Absolute 0.6 10^3/cmm (0.1-0.6); Segmented Neutrophils 27 %; Total Cells Counted 100 (0-100)
[2020-11-09 18:40] LABS: Absolute Neutrophil 2.6 10^3/cmm (1.4-6.5); Platelet Estimate Decreased (Normal)
[2020-11-16 15:51] LABS: Basophils % 0.5 %; Eosinophils % 0.2 %; Hematocrit 30.8 % (42.0-52.0); Hemoglobin 9.8 g/dL (11.7-16.6); Lymphocytes # 2.1 10^3/uL (0.8-4.8); Lymphocytes % 24.8 %; Mean Corpuscular HGB Conc 31.8 g/dL (30.0-36.0); Mean Corpuscular Hemoglobin 29.2 pg (28.0-34.0); Mean Corpuscular Volume 91.7 fL (80-94); Mean Platelet Volume 9.8 fL (7.4-10.4); Monocytes # 0.8 10^3/uL (0.2-0.9); Monocytes % 9.2 %; Neutrophils # 5.18 10^3/uL (1.8-7.7); Neutrophils % 62.4 %; Nucleated Red Blood Cells % 0 %; Platelet Count 243 10^3/cmm (130-400); Red Blood Count 3.36 10^6/uL (4.1-5.3); Red Cell Distribution Width 17.9 % (12.1-15.1); White Blood Count 8.3 10^3/uL (4.0-10.0)
[2020-11-16 16:27] LABS: Alanine Aminotransferase < 5 U/L (0-41); Albumin Level 3.3 g/dL (3.5-5.2); Alkaline Phosphatase 90 IU/L (40-130); Anion Gap 13.8 (5-19); Aspartate Amino Transferase 13 U/L (0-40); Blood Urea Nitrogen 41 mg/dL (8-23); Calcium 7.9 mg/dL (8.5-10.5); Carbon Dioxide 28 mmol/L (22-29); Chloride 104 mmol/L (98-107); Globulin 2.1 g/dL (1.3-4.6); Glucose 99 mg/dL (65-115); Osmolality Calculated 304 mOsm/kg (285-295); Potassium 3.8 mmol/L (3.5-5.1); Sodium 142 mmol/L (136-145); Total Bilirubin 0.3 mg/dL (0.15-1.2); Total Protein 5.4 g/dL (6.6-8.7)
--- NOTE | 2020-12-06 08:10 | ONC FU_ITS ---
Dr. Betancourt Patient Follow-Up Note Patient: Michael Osullivan Unit #: [id number]: 1935 Dicatated By: Jim Betancourt M.D.Date of Visit:November 17, 2020 Onc Med Follow-up/Prog Note Chief Complaint: Bladder cancer. 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 He has a known history of primary membranous glomerulonephritis, initially diagnosed in 2011 and treated with cyclophosphamide. In 2015 he had noncomplete remission after second line treatment with rituximab. During follow-up he has slowly advancing disease, and he has had associated chronic kidney disease with creatinine stable in the range of 2.5 to 3 mg/dL. On 06/21/2020 he had presented to the [facility] emergency room with gross hematuria. His CT abdomen/pelvis showed a lobulated soft tissue density along the posterior aspect of the bladder measuring 6.0 x 5.0 cm. A partly fluid-filled structure projecting directly adjacent to the right posterior paracentral bladder measuring 5.5 x 3.5 cm appeared consistent with a diverticulum. A solid lobulation with the diverticulum measuring 2.0 x 1.5 cm. The findings appeared highly suspicious for bladder malignancy extending into bladder diverticula. There was no retroperitoneal adenopathy or other evidence of metastatic disease. He was seen for urology consultation by Dr. Michael Ford. His outpatient cystoscopy confirmed presence of a bladder lesion. On 07/07/2020 he underwent cystoscopy with transurethral resection and fulguration of bladder neoplasm. The dominant finding was a rounded up lesion centered a little left of the midline posteriorly above the trigone measuring in the 2 to 5 cm diameter range. The remainder of the bladder mucosa appeared normal. The lesion appeared to be superficially necrotic and it appeared to extend more or less into or through the bladder wall as opposed to a surface lesion protruding into the bladder lumen. The lesion was partially resected and it was then fulgurated in its entirety. Pathology showed high-grade neuroendocrine carcinoma. 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 It did show lamina propria invasion. There was no definitive muscularis propria present for assessment. There was no lymphovascular invasion identified. I had seen him initially on 08/18/2020. He then had further evaluation with staging PET/CT on 08/28/2020. It showed a posterior bladder mass measuring 7.9 x 5.8 cm with marked increased FDG activity. Also noted was a right sided bladder diverticulum measuring 2.2 x 4.4 cm. There was no evidence for local or distant metastatic disease. Subcentimeter pelvic lymph nodes were too small to characterize. 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 His medical illnesses, in addition to the membranous glomerulonephritis and chronic kidney disease, include hypertension, type 2 diabetes, coronary artery disease, atrial fibrillation, and gout. He had a very minimal smoking history, limited to a period of about 10 years. He quit smoking by age 26. INTERIM HISTORY: He began cycle 1 of carboplatin/etoposide on 09/22/2020. It was complicated by neutropenia and anemia. He required PRBC transfusion, but he otherwise had uneventful recovery, and he continued with cycle 2 on 10/20/2020. Restaging CT abdomen/pelvis on 10/29/2020 showed posterior bladder mass measuring up to 0.8 x 9.6 cm, possibly larger compared to the previous study from May 2020. A bladder diverticulum was noted to measure 2.1 x 4.9 cm. There was no evidence for metastatic disease. He is seen for a follow-up visit. He says he is feeling fine. Energy is not bad, but he does have somewhat limited activity. ECOG score is 1. He has good appetite. He has no fever or night sweats. He has had no mouth sores. He has no shortness of breath, cough, or chest pain. He has no GI complaints other than occasional constipation. Bladder function has been okay. He has no dysuria or hematuria. He has no significant joint or bone pain. He does not complain of headache or dizziness, and he has no focal neurologic symptoms. Medications: Allopurinol (150 mg) Tablet Oral daily, amLODIPine Besylate (10 mg) Tablet Oral daily, Aspirin 81 Tablet, enteric coated Oral daily, Atorvastatin Calcium (20 mg) Tablet Oral daily, Furosemide (40 mg) Tablet Oral b.i.d., hydrALAZINE HCl (50 mg) Tablet Oral t.i.d., Klor-Con 10 (10 meq) Tablet, controlled release Oral daily, Losartan Potassium (100 mg) Tablet Oral daily Allergies: No Known Allergies. Vital Signs: Performed on November 17, 2020 09:29 Height - 70.00 in Weight - 153 lbs (LOW) BSA - 1.86 sq.m BMI - 21.95 Temperature - 97.9 F (LOW) Pulse - 93 /min Respiration - 18 /min BP - 148/72 mm(hg) (HIGH) O2 Sat - 98 % Pain - 0 Fatigue - 0 Physical Examination: Constitutional - He looks pretty good generally, Eyes - Sclerae nonicteric. Conjunctivae clear, ENMT - No lesions noted in the oral cavity, Hematologic/Lymphatic - No cervical, clavicular, or axillary adenopathy, Respiratory - Lungs are clear with good air movement bilaterally, Cardiovascular - Heart rhythm is regular. There is a II/ systolic murmur. There is no gallop or rub noted, Abdomen - Soft. Liver and spleen are not enlarged. There is no abdominal mass or ascites noted and there is no inguinal adenopathy, Extremities - Slight edema, Neurologic - No focal neurologic deficits noted. Lab/Imaging: CBC shows hemoglobin 9.8 g, white blood cell count 8300, and platelet count 243,000. Comprehensive metabolic profile shows elevated BUN and creatinine at 41 and 2.8 mg/dL. Bilirubin and liver enzymes are normal. Problem List: 1. High-grade neuroendocrine carcinoma of the urinary bladder. He underwent cystoscopy with transurethral resection and fulguration of the bladder tumor on 07/07/2020. 2. 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 3. Hypertension. 4. Type 2 diabetes, currently not requiring medication. 5. Coronary artery disease with previous coronary artery bypass surgery. 6. Atrial fibrillation. 7. Gout. 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 He underwent cystoscopy with transurethral resection and fulguration of the bladder tumor on 07/07/2020. 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 His staging PET/CT showed no evidence for local or distant metastatic disease. 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 He has now completed 2 cycles of treatment. He tolerated it well, but his repeat CT abdomen/pelvis shows no evidence of response. I had discussed options for further management, which are limited. The probability of response to second line chemotherapy would be low. A trial of immunotherapy would be an option, but it may not be feasible in the setting of underlying membranous glomerulonephritis. Radiation or chemoradiation would potentially be a good option for treatment, but that also may not be feasible for him, as he is the primary caregiver for his , and he has not been willing to consider coming in for daily treatments. Jenniffer initially I will defer any decision regarding his further treatment until after I have had an opportunity to have a discussion with his reconciler regarding the risk of immunotherapy with the glomerulonephritis. Signed By: Jim Betancourt M.D. <<Signature on File>>
== END 2020-11-22 23:59 | disposition home or self-care (01) ==
LOC: ONCMED 05:37
PROVIDERS: Nurse Practitioner; PCP Family Medicine; Visit Provider Internal Medicine Medical Oncology
DX: C67.8 Malignant neoplasm of overlapping sites of bladder (principal); Z79.899 Other long term (current) drug therapy
CPT/HCPCS: 36430; 80053; 85007; 85025; 86850; 86900; 86920; 96372; 99214; J1940; J7050; P9040; Q5101

== ENCOUNTER → 2020-12-22 12:32 | Outpatient (BNVA) | payer MEDICARE, MEDICAID, SELFPAY | PROVIDERS: PCP Family Medicine; Visit Provider Nurse Practitioner Family | DX: N18.4 Chronic kidney disease, stage 4 (severe) (principal) | CPT/HCPCS: 80069; 82310; 82570; 83970; 84156 ==

== ENCOUNTER 2021-01-04 11:13 | Inpatient (IN) | payer MEDICARE, MEDICAID, SELFPAY ==
[2021-01-04] VITALS (14 sets, daily range): BP systolic 110–170; BP diastolic 59–84; PULSE 69–97; RESP 12–18; TEMP 36.2–37.2; O2SAT 93–100; BMI 27.2
--- NOTE | 2021-01-04 11:26 | W.ED.MALEGU ---
HPI - Male Genitourinary General: Chief complaint: Urogenital-Male Stated complaint: BLOOD IN URINE Time Seen by Provider: 01/04/21 11:14 History of Present Illness: HPI Narrative: 85-year-old male who presents to the emergency room with complaints of hematuria. He has history of bladder cancer. He has had incomplete emptying for the last day or more. He has significant acute suprapubic discomfort pain and cramping. He has not on any anticoagulants. He does take aspirin daily. MD Complaint: dysuria and other (Hematuria) Onset (ago): hour(s) Duration: constant Location: abdomen Radiation: right flank and left flank Severity: moderate Quality: aching Relieving factors: none Exacerbating factors: none Associated symptoms: Reports dysuria, hematuria and urinary retention; Deny discharge, fevers/chills, nausea, rash, swelling, urinary incontinence or vomiting Review of Systems Const: Denies: fever(s), chills, body aches, change in appetite, fatigue or malaise ENMT: Denies: throat pain, ear or mastoid pain, nasal discharge or nasal congestion Card: Denies: chest pain, edema, dyspnea on exertion or orthopnea Resp: Denies: dyspnea, productive cough or non-productive cough GI: Denies: nausea or vomiting : Reports: dysuria and hematuria; Denies: urinary incontinence Skin/Breast: Denies: rash or pruritus [facility] ED PFSH: Medical History (Updated 01/04/21 @ 14:20 by Jv Diaz DO) 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 Bradycardia CKD (chronic kidney disease) Diabetes Fatigue Gout Hyperlipidemia Hypertension Leg edema Surgical History H/O: knee surgery History of hernia repair Hx of CABG Family History Denies family history of Diabetes CAD (coronary artery disease) Dementia Chronic kidney disease (CKD) Anesthesia complication Bleeding disorder Family history of premature coronary artery disease Lung disease Cancer Stroke Social History Smoking and tobacco status: former smoker Alcohol intake: never Physical Exam Const: COMMON NORMALS: no acute distress GENERAL APPEARANCE: cooperative and comfortable ORIENTATION/CONSCIOUSNESS: Yes awake, Yes oriented to person, Yes oriented to place and Yes oriented to time HENMT: COMMON NORMALS: normocephalic, atraumatic and hearing grossly normal bilaterally HEAD & SCALP: normocephalic and atraumatic Eye: COMMON NORMALS: Equal, round and reactive pupils present, EOMs intact bilaterally, conjunctivae normal and no scleral icterus CONJUNCTIVA: Yes conjunctivae normal PUPIL: Yes Equal, round and reactive pupils present Neck/C-Spine: COMMON NORMALS: full ROM, no lymphadenopathy, supple and no JVD Lymph: LYMPHATIC: no lymphadenopathy noted and no lymphedema noted Resp: COMMON NORMALS: normal respiratory effort, No retractions, No use of accessory muscles and clear to auscultation bilaterally AUSCULTATION: clear to auscultation bilaterally Cardio: COMMON NORMALS: no JVD, regular rate, regular rhythm and No murmurs present (Cardio) RATE: regular rate RHYTHM: regular rhythm GI: COMMON NORMALS: No hepatosplenomegaly present AUSCULTATION: Yes normoactive bowel sounds PALPATION: Yes Tenderness to palpation present (GI) (Bladder palpable at the level of the umbilicus), No Guarding due to palpation present (GI) and Yes No hepatosplenomegaly present Extremity: COMMON NORMALS: normal to inspection, capillary refill normal, no clubbing, cyanosis or edema, no calf tenderness and no pedal edema Neuro: SENSORIUM/ORIENTATION: Yes oriented to person, Yes oriented to place and Yes oriented to time Skin: COMMON NORMALS: no rashes or lesions noted GENERAL SKIN EXAM: no rashes or lesions noted Course Vital Signs: Vital signs: Vital Signs Temperature 97.8 F 01/04/21 11:20 Pulse Rate 90 01/04/21 11:55 Respiratory Rate 15 01/04/21 11:55 Blood Pressure 117/84 01/04/21 11:55 Pulse Oximetry 100 01/04/21 11:55 MDM - Male [facility] Narrative: Medical decision making narrative: Initially placed an 18 [place] Anthony they are unable to get the cath much for clots out of the bladder they did get a fair amount however the catheter kept collapsing and prevented with drawing. Discussed with Dr. Thompson will switch to a specialty rigid cath irrigate manually at first and then we will can do continuous bladder irrigation started on antibiotics. will admit to hospitalist due to multiple comorbidities. Lab Data: Labs: Lab Results 01/04/21 01/04/21 01/04/21 Range/Units 11:50 11:50 11:50 WBC 13.7 H (4.0-10.0) 10^3/ uL RBC 3.58 L (4.1-5.3) 10^6/u L Hgb 11.5 L (11.7-16.6) g/dL Hct 34.6 L (42.0-52.0) % MCV 96.6 H (80-94) fL MCH 32.1 (28.0-34.0) pg MCHC 33.2 (30.0-36.0) g/dL RDW 14.6 (12.1-15.1) % Plt Count 161 (130-400) 10^3/c mm MPV 9.0 (7.4-10.4) fL Neut % (Auto) 89.1 % Lymph % (Auto) 6.8 % [place] % (Auto) 3.2 % Eos % (Auto) 0.1 % Baso % (Auto) 0.3 % Neut # (Auto) 12.22 H (1.8-7.7) 10^3/u L Lymph # (Auto) 0.9 (0.8-4.8) 10^3/u L [place] # (Auto) 0.4 (0.2-0.9) 10^3/u L Eos # (Auto) 0.0 (0.0-0.8) 10^3/u L Baso # (Auto) 0.0 (0.0-0.1) 10^3/u L Nucleated RBC % (a uto) 0 % Nucleated RBCs # 0.0 /100WBC Sodium 145 (136-145) mmol/L Potassium 3.5 (3.5-5.1) mmol/L Chloride 106 (98-107) mmol/L Carbon Dioxide 17 L (22-29) mmol/L Anion Gap 25.3 H (5-19) BUN 51 H (8-23) mg/dL Creatinine 2.8 H (0.7-1.2) mg/dL GFR Calculation Not Reportable Glucose 176 H (65-115) mg/dL Calculated Osmolal ity 318 H (285-295) mOsm/k g Calcium 8.7 (8.5-10.5) mg/dL Urine Color Red (Yellow) Urine Appearance Turbid (CLEAR) Urine pH 8 H (5-7) Ur Specific Gravit y 1.015 (1.005-1.030) Urine Protein 3+ H (Negative) Urine Glucose (UA) Trace H (Normal) Urine Ketones Negative (Negative) Urine Blood 2+ H (Negative) Urine Nitrate Negative (Negative) Urine Bilirubin Neg (Negative) Prot Sulfosalicyli c Acd Positive (Negative) Urine Urobilinogen Norm (Negative) mg/dL Ur Leukocyte [place] ase Negative (Negative) Urine RBC Too numerous to c nt H (0-2) /hpf Urine WBC None (0-5) /hpf Ur Squamous Epith Cells 0-4 H (0-5) /hpf Amorphous Sediment Not Reportable Urine Bacteria 1+ H (NONE) /hpf Discharge Plan Discharge Patient Disposition: Admitted As Inpatient Clinical Impression: Bladder cancer, Bladder outlet obstruction, FABBY (acute kidney injury) Condition: Stable Coding Level of Care Code ED Infection Control Preventionist for Geo Fwd Exam Comprehensive
[2021-01-04 12:01] LABS: Basophils % 0.3 %; Eosinophils % 0.1 %; Hematocrit 34.6 % (42.0-52.0); Hemoglobin 11.5 g/dL (11.7-16.6); Lymphocytes # 0.9 10^3/uL (0.8-4.8); Lymphocytes % 6.8 %; Mean Corpuscular HGB Conc 33.2 g/dL (30.0-36.0); Mean Corpuscular Hemoglobin 32.1 pg (28.0-34.0); Mean Corpuscular Volume 96.6 fL (80-94); Monocytes # 0.4 10^3/uL (0.2-0.9); Monocytes % 3.2 %; Neutrophils # 12.22 10^3/uL (1.8-7.7); Neutrophils % 89.1 %; Nucleated Red Blood Cells % 0 %; Platelet Count 161 10^3/cmm (130-400); Red Blood Count 3.58 10^6/uL (4.1-5.3); Red Cell Distribution Width 14.6 % (12.1-15.1); White Blood Count 13.7 10^3/uL (4.0-10.0)
[2021-01-04 12:07] LABS: Urine Appearance Turbid (CLEAR); Urine Color Red (Yellow)
[2021-01-04 12:09] LABS: Add Urine Culture? Yes; Add Urine Microscopic? YES; Bacteria Urine 1+ /hpf; Bilirubin Urine Neg (Negative); Blood Urine 2+ (Negative); Glucose Urine UA Trace (Normal); Ketones Urine Negative (Negative); Leukocyte Esterase Urine Negative (Negative); Nitrate Urine Negative (Negative); Protein Urine 3+ (Negative); RBC Urine TOO NUMEROUS TO CNT /hpf (0-2); Specific Gravity, Urine 1.015 (1.005-1.030); Squamous Epithelial Cell Urine 0-4 /hpf (0-5); Sulfosalicylic Acid Urine Positive (Negative); Urobilinogen Urine Norm (Negative); pH Urine 8 (5-7)
[2021-01-04] MEDS: morphine 4 mg/mL SDV 1 mL 2 MG IVP ×3 (12:16→18:59)
[2021-01-04 12:38] LABS: Anion Gap 25.3 (5-19); Blood Urea Nitrogen 51 mg/dL (8-23); Calcium 8.7 mg/dL (8.5-10.5); Carbon Dioxide 17 mmol/L (22-29); Chloride 106 mmol/L (98-107); Glucose 176 mg/dL (65-115); Osmolality Calculated 318 mOsm/kg (285-295); Sodium 145 mmol/L (136-145)
[2021-01-04 12:44] LABS: Potassium 3.5 mmol/L (3.5-5.1)
[2021-01-04] MEDS: cefTRIAXone 2,000 MG in sodium chloride 0.9% (plus) 50 ML 100 MG IV (13:33)
[2021-01-04] MEDS: lidocaine 2% Urojet 20 mL TOPICAL (13:33)
[2021-01-04] MEDS: fentaNYL 50 mcg/mL INJ 2mL 25 MCG IVP (13:33)
[2021-01-04] MEDS: morphine 4 mg/mL SDV 1 mL IVP (15:44)
--- NOTE | 2021-01-04 17:54 | PM.HP ---
Providers/Chief Complaint Admitting Physician: Trena Reyes MD Primary Care Provider: Dima Mckenzie Chief Complaint: BLOOD IN URINE History of Present Illness Michael Osullivan is a 85 year old male with past medical history of bladder cancer presents to the ER with complaints of hematuria. He also has had lower abdominal pain and superior pubic discomfort. He reports poor appetite. Onset was today. He denies any recent fevers, chills. He is on aspirin. In the ER urology was consulted. Patient is currently receiving continuous bladder irrigation. Anthony catheter was adjusted 3 times and he has received several doses of morphine as well as fentanyl. Review of Systems General: Reports: 10 or more systems reviewed and unremarkable except in HPI and below Const: Denies: fever(s) or chills Eyes: Denies: change in vision or blurry vision ENMT: Denies: throat pain or uvular edema Card: Denies: chest pain or palpitations Resp: Denies: dyspnea or productive cough Medications/Allergies Home Medications Medication Instructions Recorded Confirmed Last Taken Type aspirin 81 mg tablet,delayed 81 mg PO DAILY 02/09/20 01/04/21 Unknown History release atorvastatin 20 mg tablet 20 mg PO DAILY 02/09/20 01/04/21 01/03/21 History coenzyme [id number] E 100 mg-100 1 cap PO DAILY 02/09/20 01/04/21 Unknown History unit capsule colchicine 0.6 mg tablet 0.6 mg PO BID PRN 02/09/20 01/04/21 01/04/21 History potassium chloride 10 mEq 10 meq PO DAILY 02/09/20 01/04/21 01/03/21 History capsule,extended release losartan 100 mg tablet 100 mg PO DAILY #90 tab 02/20/20 01/04/21 01/03/21 Rx amlodipine 10 mg tablet 10 mg PO DAILY 03/30/20 01/04/21 01/03/21 History furosemide 40 mg tablet 40 mg PO BID tab 03/30/20 01/04/21 01/03/21 History ferrous sulfate 325 mg PO DAILY 01/04/21 01/04/21 01/03/21 History Allergies Allergy/AdvReac Type Severity Reaction Status Date / Time No Known Allergies Allergy Verified 07/14/20 10:11 PFSH Acute PFSH: Medical History (Updated 01/04/21 @ 14:20 by Jv Diaz DO) 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 Bradycardia CKD (chronic kidney disease) Diabetes Fatigue Gout Hyperlipidemia Hypertension Leg edema Surgical History H/O: knee surgery History of hernia repair Hx of CABG Family History Denies family history of Diabetes CAD (coronary artery disease) Dementia Chronic kidney disease (CKD) Anesthesia complication Bleeding disorder Family history of premature coronary artery disease Lung disease Cancer Stroke Social History Smoking and tobacco status: former smoker Alcohol intake: never Vitals/I&O/Wt Last Vital Signs Temp 97.8 F 01/04/21 11:20 Pulse 88 01/04/21 17:00 Resp 15 01/04/21 17:00 BP 127/84 01/04/21 17:00 Pulse Ox 97 01/04/21 17:00 01/04/21 01/04/21 01/04/21 06:59 14:59 22:59 Intake Total 50 / 50 Balance 50 / 50 Weight last 48 hrs Weight 190 lb Physical Exam Const: COMMON NORMALS: no acute distress and patient oriented x3 Resp: COMMON NORMALS: normal respiratory effort and No retractions Cardio: COMMON NORMALS: no JVD and regular rate GI: COMMON NORMALS: Normal to inspection, nondistended, normoactive bowel sounds present and Soft to palpation : OTHER: suprapubic tenderness Extremity: COMMON NORMALS: capillary refill normal and no pedal edema Neuro: COMMON NORMALS: patient oriented x3 and CN's II-XII intact bilaterally Psych: COMMON NORMALS: mental status grossly normal and Normal thought process present Skin: COMMON NORMALS: no rashes or lesions noted and no wounds Urinary Catheter Management^: 3-way Urethral CBI: Cath Placed During This Visit: yes Urinary Catheter Date of Insertion: 01/04/21 Urinary Catheter Time of Insertion: 11:54 Data : 01/04/21 11:50 01/04/21 11:50 A&P Assessment and plan (1) FABBY (acute kidney injury): Status: Acute (2) Bladder outlet obstruction: Status: Acute (3) Hyperlipidemia: Status: Acute Qualifiers: Hyperlipidemia type: mixed hyperlipidemia Qualified Code(s): E78.2 - Mixed hyperlipidemia Additional A&P Information #hematuria #bladder cancer #bladder outlet obstruction --admit to medicine --IVF --serial labs --CBI --PRN analgesics --hold ASA --Urology consultation --give dose Rocephin #HTN --stable --hold amtihypertensives #CKD --Screat appears to be around baseline 2.8 Attestations Medical Necessity Statement*: Michael Osullivan's hospital stay will require greater than 2 midnights for hematuria Coding Level of Care Code Acute Learning Disabilities Teacher for g Fwd Diagnoses FABBY (acute kidney injury) N17.9 Bladder outlet obstruction N32.0 Hyperlipidemia E78.2 Hyperlipidemia type: mixed hyperlipidemia
[2021-01-04] MEDS: sodium chloride 0.9% 1,000 ML 75 ML IV ×2 (19:00→22:19)
--- NOTE | 2021-01-04 19:20 | PC.NURSE ---
ROUNDING/SHIFT CHANGE Pt resting in bed. Son at bedside. Pt is very pleasant. Day shift nurse just gave Morphine IV at shift change. Pt denies pain at present. CBI going wide open with urine ranging from light pink to a darker pink/red. No clots observed at this time. Staying at bedside to monitor closely and to keep irrigation going & Anthony bag emptied freq. IV fluids at 75ml/hr rate
--- NOTE | 2021-01-04 19:28 | PC.NURSE ---
DR VISIT Dr Thompson here to talk with pt. May be taking to the OR tahmina
[2021-01-04] MEDS: morphine 4 mg/mL SDV 1 mL 1 MG IVP (19:45)
--- NOTE | 2021-01-04 19:49 | P.CONIM_ITS ---
Providers/Reason For Consult Consulting Physician/Specialty*: Thompson/urology Reason for Consult*: Uncontrolled hematuria from refractory high risk bladder tumor Attending Physician: Trena Reyes MD Primary Care Provider: Dima Mckenzie History of Present Illness History of Present Illness Michael Osullivan is a 85 year old male who I evaluated for the first time today at the request of the emergency department. 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 Initial size and diagnosis was 5 x 3 plus centimeters and probably involving a 2-1/2 cm diverticulum. No obvious adenopathy or metastasis. Has undergone chemotherapy but unfortunately the mass has increased in size. CT scan done in October showed increased to 9.6 cm and increase in size of the diverticulum. He had done relatively well with no significant local complications until he presented to the emergency department today with several days of increasing hematuria and development of clot retention. Several catheters were tried for clot evacuation but ultimately required a hematuria catheter to clear the clots and he was placed on CBI. Despite full rate CBI with normal saline he was still forming clots requiring manual irrigation. Based on the inability to manage the bleeding with conservative measures including manual irrigation and CBI it was elected to proceed emergently to the operating room tonight for clot evacuation and if possible fulguration. I reviewed with the patient and his son in detail the significant risk associated with this given the characteristics of the tumor. It is possible that this will be relatively easy to control with clot evacuation and followed by fulguration of identified active bleeding sites but it is also possible that attempts at fulguration may actually worsen bleeding even to the point of inability to control at all. Reviewed options at that point such as emergency embolization of iliac arteries at a interventional radiology capable institution. Emergent extirpative therapy was also discussed. Further complicating matters are the significant comorbidities and age related factors including atherosclerotic coronary vascular disease, bradycardia, chronic kidney disease, diabetes, hyperlipidemia hypertension etc. I reviewed these risks in detail with the patient and his son and they agreed to proceed with surgery with hopes of being able to control this bleeding but recognizing the risks of potentially making it worse. Informed consent was obtained Review of Systems Const: Reports: malaise; Denies: fever(s) or chills Eyes: Denies: change in vision or yellow eyes ENMT: Denies: odynophagia or hoarseness Card: Denies: chest pain or palpitations Resp: Denies: productive cough or wheezing GI: Reports: abdominal pain and nausea; Denies: diarrhea : Reports: difficulty urinating, dysuria, difficulty starting urination and hematuria; Denies: flank pain Musc: Denies: joint redness or joint warmth Skin/Breast: Denies: changing lesions Neuro: Denies: confusion or Slurred speech present Psych: Denies: anxiety or panic attacks Endo: Denies: flushing Live/Lymph: Reports: easy bleeding; Denies: enlarged lymph nodes All/Imm: Reports: acute wheezing Meds/Allergies Home Medications and Allergies Home Medications Medication Instructions Recorded Confirmed Last Taken Type aspirin 81 mg tablet,delayed 81 mg PO DAILY 02/09/20 01/04/21 Unknown History release atorvastatin 20 mg tablet 20 mg PO DAILY 02/09/20 01/04/21 01/03/21 History coenzyme [id number] E 100 mg-100 1 cap PO DAILY 02/09/20 01/04/21 Unknown History unit capsule colchicine 0.6 mg tablet 0.6 mg PO BID PRN 02/09/20 01/04/21 01/04/21 History potassium chloride 10 mEq 10 meq PO DAILY 02/09/20 01/04/21 01/03/21 History capsule,extended release losartan 100 mg tablet 100 mg PO DAILY #90 tab 02/20/20 01/04/21 01/03/21 Rx amlodipine 10 mg tablet 10 mg PO DAILY 03/30/20 01/04/21 01/03/21 History furosemide 40 mg tablet 40 mg PO BID tab 03/30/20 01/04/21 01/03/21 History ferrous sulfate 325 mg PO DAILY 01/04/21 01/04/21 01/03/21 History Allergies Allergy/AdvReac Type Severity Reaction Status Date / Time No Known Allergies Allergy Verified 07/14/20 10:11 Current Medications Current Medications Generic Name Dose Route Start Last Admin Trade Name Freq PRN Reason Stop Dose Admin Sodium Chloride 1,000 mls @ 75 mls/hr 01/04/21 18:35 01/04/21 19:00 Sodium Chloride 0.9% IV 75 mls/hr .[id number] FARIDA Administration Morphine Sulfate 2 mg 01/04/21 18:35 01/04/21 18:59 Morphine 4 Mg/Ml Sdv 1 Ml IVP 2 mg Q4H PRN Administration SEVERE PAIN PFSH Acute PFSH: Medical History (Updated 01/04/21 @ 20:01 by Charanjit Thompson MD) 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 Bradycardia CKD (chronic kidney disease) Diabetes Fatigue Gout Hyperlipidemia Hypertension Leg edema Surgical History H/O: knee surgery History of hernia repair Hx of CABG Family History Denies family history of Diabetes CAD (coronary artery disease) Dementia Chronic kidney disease (CKD) Anesthesia complication Bleeding disorder Family history of premature coronary artery disease Lung disease Cancer Stroke Social History Smoking and tobacco status: former smoker Alcohol intake: never Vitals/I&O/Wt Last Vital Signs Temp 97.8 F 01/04/21 18:00 Pulse 88 01/04/21 18:18 Resp 16 01/04/21 19:45 BP 127/84 01/04/21 18:18 Pulse Ox 97 01/04/21 18:59 01/04/21 01/04/21 01/04/21 06:59 14:59 22:59 Intake Total 50 / 50 Balance 50 / 50 Weight last 48 hrs Weight 190 lb Physical Exam Const: COMMON NORMALS: patient oriented x3 EXAM LIMITATIONS: no altered mental status GENERAL APPEARANCE: cooperative; not comfortable OTHER: Intermittent distress related to severe bladder spasms. HENMT: COMMON NORMALS: normocephalic HEAD & SCALP: normocephalic Eye: COMMON NORMALS: conjunctivae normal CONJUNCTIVA: Yes conjunctivae normal Neck/C-Spine: COMMON NORMALS: full ROM Lymph: LYMPHATIC: no lymphadenopathy noted and no lymphedema noted Resp: COMMON NORMALS: normal respiratory effort EFFORT & INSPECTION: No tachypneic and No respiratory distress Cardio: COMMON NORMALS: regular rate and regular rhythm RATE: regular rate RHYTHM: regular rhythm GI: COMMON NORMALS: no masses PALPATION: Yes Tenderness to palpation present (GI) (Suprapubic) : COMMON NORMALS: Yes no CVA tenderness BLADDER/KIDNEY EXAM: Yes catheter in place, Yes no CVA tenderness and Yes other (Intermittently grossly bloody irrigation) PENIS: normal penis and circumcised MEATUS: meatus normal Back/Pelvis: COMMON NORMALS: no CVA tenderness Neuro: COMMON NORMALS: patient oriented x3 Psych: COMMON NORMALS: mental status grossly normal, Normal thought process present and cooperative THOUGHT PROCESS: Normal thought process present Skin: COMMON NORMALS: no jaundice Urinary Catheter Management^: 3-way Urethral CBI: Cath Placed During This Visit: yes Reason for Continuing Indwelling Catheter: Acute Urinary Retention or Obstruction Urinary Catheter Date of Insertion: 01/04/21 Urinary Catheter Time of Insertion: 11:54 A&P Assessment and plan (1) Bladder cancer: Status: Acute Qualifiers: Bladder location: overlapping sites Qualified Code(s): C67.8 - Malignant neoplasm of overlapping sites of bladder (2) Clot retention of urine: Secondary to bleeding progressively increasing bladder cancer mass. Status: Acute (3) Hypertension: Status: Acute Qualifiers: Hypertension type: essential hypertension Qualified Code(s): I10 - Essential (primary) hypertension (4) CKD (chronic kidney disease): Status: Acute Qualifiers: Chronic kidney disease stage: stage 3 (moderate) Qualified Code(s): N18.3 - Chronic kidney disease, stage 3 (moderate) (5) Diabetes: Status: Acute Qualifiers: Diabetes mellitus complication status: with hyperglycemia Diabetes mellitus detention insulin use: with business intelligence director use Diabetes mellitus type: type 2 Qualified Code(s): E11.65 - Type 2 diabetes mellitus with hyperglycemia; 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 transplanted heart: [place] heart Qualified Code(s): I25.10 - Atherosclerotic heart disease of [place] coronary artery without angina pectoris Consult Attestations Medical Necessity Statement: Critically ill. Ongoing active bleeding requiring bladder irrigation continuously. Coding Level of Care Code Acute Instructional Design Consultant for tamia Fwd Exam Comprehensive Diagnoses Bladder cancer C67.8 Bladder location: overlapping sites Clot retention of urine R33.8 Hypertension I10 Hypertension type: essential hypertension CKD (chronic kidney disease) N18.3 Chronic kidney disease stage: stage 3 (moderate) Diabetes E11.65; Z79.4 Diabetes mellitus complication status: with hyperglycemia Diabetes mellitus detention insulin use: with business intelligence director use Diabetes mellitus type: type 2 Atherosclerotic heart disease of [place] coronary artery without angina pectoris I25.10 [place] vs. transplanted heart: [place] heart
--- NOTE | 2021-01-04 20:25 | PC.NURSE ---
OR Nurse here to take pt to OR. Pt awake and pleasant. CBI cont at wide open rate. Anthony draining clear light pink urine at present. Pt cont to have occ bladder spasm but otherwise no pain. Son to OR with pt
--- NOTE | 2021-01-04 20:51 | ANES.PREANE2 ---
Pre-Anesthetic Assessment Pre-Anesthetic Assessment: Height/Weight: Height 1.78 m Weight 86.183 kg Temp Pulse Resp BP Pulse Ox 97.8 F 88 16 127/84 97 01/04/21 18:00 01/04/21 18:18 01/04/21 19:45 01/04/21 18:18 01/04/21 18:59 Proposed Procedure: Operation Date: 01/04/21 20:50 Proposed Procedures s Transurethral Resection Bladder Tumor(Not Applicable) - Charanjit Thompson MD p Clot Evacuation Fulguration(Not Applicable) - Charanjit Thompson MD Was Beta Ish taken within 24 hours: N/A Was Clonidine taken within 24 hours: N/A Last intake: Intake Last Liquid Date 01/04/21 Last Liquid Time 14:00 Last Solid Date 01/03/21 Last Solid Time 17:00 Social: Social History: No alcohol and No tobacco Exam: Pre-Anes Outpt Exam: alert, oriented x 3, clear to auscultation bilaterally and regular rate & rhythm Airway: Submandibular: WNL Cervical ROM: WNL MP: 2 Dentition: False CV/HEM: CV/HEM: Anemia, Arrythmia, CAD (CABG) and HTN : : Chronic renal Insufficiency Metabolic: Metabolic: DM and Hyperlipidemia Anesthetic Plan: ASA status: 3E Anesthesia: General Risk of > 500 ml blood loss (7ml/kg in children): No Meds/Allergies Current Medications: Current Medications Generic Name Dose Route Start Last Admin Trade Name Freq PRN Reason Stop Dose Admin Sodium Chloride 1,000 mls @ 75 ml s/hr 01/04/21 18:35 01/04/21 19:00 Sodium Chloride 0.9% IV 75 mls/hr .[id number] FARIDA Administration Morphine Sulfate 2 mg 01/04/21 18:35 01/04/21 18:59 Morphine 4 Mg/Ml Sdv 1 Ml IVP 2 mg Q4H PRN Administration SEVERE PAIN PFSH Anesthesia PFSH: Medical History (Updated 01/04/21 @ 20:01 by Charanjit Thompson MD) Atherosclerotic heart disease of [place] coronary artery without angina pectoris [place]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 Bradycardia CKD (chronic kidney disease) Diabetes Fatigue Gout Hyperlipidemia Hypertension Leg edema Surgical History H/O: knee surgery History of hernia repair Hx of CABG Family History Denies family history of Diabetes CAD (coronary artery disease) Dementia Chronic kidney disease (CKD) Anesthesia complication Bleeding disorder Family history of premature coronary artery disease Lung disease Cancer Stroke Social History Smoking and tobacco status: former smoker Alcohol intake: never Data Anesthesia CBC & Chem 7: 01/04/21 11:50 01/04/21 11:50 Other Labs: Laboratory Results - last 48 hr 01/04/21 01/04/21 01/04/21 11:50 11:50 11:50 WBC 13.7 H RBC 3.58 L Hgb 11.5 L Hct 34.6 L MCV 96.6 H MCH 32.1 MCHC 33.2 RDW 14.6 Plt Count 161 MPV 9.0 Neut % (Auto) 89.1 Lymph % (Auto) 6.8 [place] % (Auto) 3.2 Eos % (Auto) 0.1 Baso % (Auto) 0.3 Neut # (Auto) 12.22 H Lymph # (Auto) 0.9 [place] # (Auto) 0.4 Eos # (Auto) 0.0 Baso # (Auto) 0.0 Nucleated RBC % (auto) 0 Nucleated RBCs # 0.0 Sodium 145 Potassium 3.5 Chloride 106 Carbon Dioxide 17 L Anion Gap 25.3 H BUN 51 H Creatinine 2.8 H GFR Calculation Not Reportable Glucose 176 H Calculated Osmolality 318 H Calcium 8.7 Urine Color Red Urine Appearance Turbid Urine pH 8 H Ur Specific [place] 1.015 Urine Protein 3+ H Urine Glucose (UA) Trace H Urine Ketones Negative Urine Blood 2+ H Urine Nitrate Negative Urine Bilirubin Neg Prot Sulfosalicylic Acd Positive Urine Urobilinogen Norm Ur Leukocyte Esterase Negative Urine RBC Too numerous to cnt H Urine WBC None Ur Squamous Epith Cells 0-4 H Amorphous Sediment Not Reportable Urine Bacteria 1+ H Cardiac Studies: Holter Monitor 03/24/20
[2021-01-04] MEDS: lidocaine 2% Urojet 20 mL XX (21:08)
--- NOTE | 2021-01-04 21:58 | P.OP_ITS ---
Operative Report Date of procedure: January 04, 2021 Pre-op Diagnosis: Refractory bladder cancer, clot retention Post-op diagnosis: same Procedure Done: 1. Cystoscopy, clot evacuation 2. Fulguration of multiple bleeding sites of bladder tumor Pathology: none sent Surgeon: Jay Anesthesia: General Estimated blood loss: Estimated 100+ cc of blood clot removed throughout the procedure. Urine output: Not measured Complications: Could not completely control bleeding due to very friable bladder tumor tissue with multiple areas of mucosal tearing. At the completion of the procedure it was clear but the nature of the tissue is likely that it will bleed again with minimal stimulus. Findings: Huge unresectable bladder tumor with multiple areas of friable mucosa, several areas of mucosal tear, difficult to control due to the visualization and multiplicity of bleeding sites. Condition: stable Disposition: PACU Brief History: Mr. Osullivan is an 85-year-old white male who I evaluated for the first time today for clot urinary retention secondary to hematuria from the large refractory neuroendocrine bladder tumor. See H&P for full details. Conservative management was conducted this day including large bore catheter placement, mult iple manual irrigations, and CBI. Bleeding was not well controlled and ultimately was decided to taken to the operating room emergently for cystoscopy, clot evacuation, fulguration of tumor. Preoperatively I had a long conversation with the patient and his son regarding this is being a very high risk situation due to the likely high vascularity of the tumor and the potential for even worse bleeding in the attempt of trying to control the bleeding that was ongoing. Procedure: After emergent evaluation examination and obtaining of informed consent he was taken to the operating suite on 01/04/2021 where general anesthesia was administered without difficulty after appropriate timeout was performed, SCDs confirmed to be functioning, preoperative antibiotics administered, beta-consuelo protocol confirmed. Prepped and draped in the usual sterile fashion in dorsolithotomy position paying careful attention to avoiding pressure points. 23 K[place]ili cystoscope with 30 degree lens was introduced into urethra meatus and advanced into the bladder under videoscopy. There was a large amount of clot in the bladder and this was evacuated with an Ellik evacuator. The findings on CT scan were confirmed. He had a very large nodular fixed tumor involving the dome, anterior bladder wall, and posterior bladder wall. There were multiple sites of active bleeding. Several portions of the tumor demonstrated tearing. The urethra was then calibrated with [place] sounds and easily accommodated 32 K[place]ili. 2% lidocaine jelly was instilled into the urethra then a 27 [place]ili continuous-flow resectoscope sheath with visual obturator in place was advanced into the bladder without difficulty. The gyrus bipolar system was utilized with the button probe. Throughout the procedure several times the Ellik evacuator had to be used to clear out new clot. The tumor area was inspected as well as could be with the cloudiness of the urine related to the ongoing bleeding. Multiple areas were fulgurated with the button probe. There was not a clear-cut point in which all the bleeding stopped but there was a significant decrease in active bleeding. While this did represent an improvement the character of the tissue appeared to be likely to bleed again and potentially worse. After is much hemostasis could be obtained as possible the bladder was drained and the procedure completed. A 24 Kisw[place]ili three-way duffy [place] a hematuria catheter was passed without difficulty, 45 cc placed in the balloon, and normal saline CBI was instituted again. The the drainage was clear with a moderate flow. He was awakened in the operating room and returned to the recovery room in stable condition. Plans: 1. Continue CBI Manual irrigation as needed 2. I reviewed with the son the findings and the less than optimistic picture and that this bleeding is likely to be only poorly controlled at best with potential for recurrent bleeding. 3. Focus will be on symptomatic control tonight. Alternative options to control the bleeding include bilateral iliac embolization at an institution with an interventional radiologist available, extirpative therapy etc. 4. We also reviewed palliative care and hospice care if it appears that the bleeding simply cannot be controlled 5. He has 2 units of packed red blood cells typed and crossed.
--- NOTE | 2021-01-04 22:18 | SUR.PHASEI ---
[id number] PT AWAKE ALERT TALKATIVE TO STAFF, DENIES PAIN ONLY URGENCY, CONTINOUS CBI INFUSING AT FAST RATE PER DR KAPLAN AT BEDSIDE, PT URINE IS CLEAR NOW BUT VERY QUICKLY TURNS PINK IF CBI IS SLOWED, NO CLOTS NOTED, APPROX 400 CBI IN IN PACU , TAY NOT EMPTIED WITH PINK URINE IN BAG. IV PATENT PT TO FLOOR PER BED, SON WALKED UP TO FLOOR WITH PT. HANDOFF AT BEDSIDE WITH CAROL العلي.
--- NOTE | 2021-01-04 22:23 | PC.NURSE ---
TRANSFER FROM OR Pt received from OR via gurney. Awake and denies pain. Son with pt. CBI going at fast rate. Anthony draining pink urine. No clots noted. IV fluids infusing at 75ml/hr rate. Nurse will be staying at bedside to manage CBI
[2021-01-05] VITALS (15 sets, daily range): BP systolic 112–143; BP diastolic 51–70; PULSE 58–76; RESP 16–20; TEMP 36.4–37.1; O2SAT 92–98
[2021-01-05 03:22] LABS: Basophils % 0.1 %; Hematocrit 27.5 % (42.0-52.0); Hemoglobin 8.9 g/dL (11.7-16.6); Lymphocytes # 0.5 10^3/uL (0.8-4.8); Lymphocytes % 3.6 %; Mean Corpuscular HGB Conc 32.4 g/dL (30.0-36.0); Mean Corpuscular Hemoglobin 32.2 pg (28.0-34.0); Mean Corpuscular Volume 99.6 fL (80-94); Mean Platelet Volume 9.5 fL (7.4-10.4); Monocytes # 0.1 10^3/uL (0.2-0.9); Monocytes % 0.5 %; Neutrophils # 13.89 10^3/uL (1.8-7.7); Neutrophils % 95.4 %; Nucleated Red Blood Cells % 0 %; Platelet Count 132 10^3/cmm (130-400); Red Blood Count 2.76 10^6/uL (4.1-5.3); White Blood Count 14.6 10^3/uL (4.0-10.0)
[2021-01-05] MEDS: morphine 4 mg/mL SDV 1 mL 2 MG IVP ×7 (03:42→23:09)
[2021-01-05 03:45] LABS: Alanine Aminotransferase 6 U/L (0-41); Albumin Level 3.1 g/dL (3.5-5.2); Alkaline Phosphatase 91 IU/L (40-130); Anion Gap 16.8 (5-19); Aspartate Amino Transferase 15 U/L (0-40); Blood Urea Nitrogen 55 mg/dL (8-23); Calcium 8.1 mg/dL (8.5-10.5); Carbon Dioxide 22 mmol/L (22-29); Chloride 107 mmol/L (98-107); Globulin 2.4 g/dL (1.3-4.6); Glucose 147 mg/dL (65-115); Osmolality Calculated 310 mOsm/kg (285-295); Potassium 4.8 mmol/L (3.5-5.1); Sodium 141 mmol/L (136-145); Total Bilirubin 0.3 mg/dL (0.15-1.2); Total Protein 5.5 g/dL (6.6-8.7)
--- NOTE | 2021-01-05 06:19 | ANE.PACU2 ---
Inpatient post-anesthesia follow up: Airway intact: Yes Vital signs: Temperature 97.7 F Pulse Rate [Monito r] 78 Pulse Rate 68 Respiratory Rate 18 Blood Pressure [Le ft Arm] 110/69 Blood Pressure 129/66 Pulse Oximetry 97 Oxygen Delivery Me thod Room Air Oxygen Flow Rate 8 Fraction of Inspir ed Oxygen Hydration adequate: Yes Nausea and vomiting: No Pain level: 2 Mental status: Baseline
--- NOTE | 2021-01-05 06:55 | PC.NURSE ---
SHIFT SUMMARY Has rested well since return from OR last evening. CBI ran at fast rate for most of the night. Able to slow down some after about 0100. Urine has remained clear of clots with color from straw to pink. No difficulty with flow and no need for manual irrigation. Total of 12 bags irrigating fluid this shift. Close monitoring of Anthony and drip with much of my shift at the pts bedside. Is very pleasant. Shift report given to Ludmila العلي at bedside
--- NOTE | 2021-01-05 10:11 | PC.CHAP ---
Pastoral Care Encounter/Spiritual Assessment Type of Contact [] Declined terrazzo polisher helper visit [] Patient/Family/Request visit [] Outpatient visit [] Follow-up visit [] Physician referral [] Code/Alert [x] Routine visit [] Staff referral [] Actively dying [] Patient sleeping [] Family support [] [] Out of room [] Palliative care [] [] Receiving care in room [] Pre-surgical visit [] Trauma [] Long length of stay [] ICU visit [] Other: Relational/Emotional Strength [] Patient feels connected with others/family/visitors/staff [] Distress [] Loneliness/isolation [] Abandonment Spirituality of Patient x[] Person of Meenakshi [x] Attends Judaism of their Meenakshi [x] Believes in Prayer [x] Reads Bible or Adventist materials [] There are Spiritual issues to be addressed Mobile Nurse Interventions [x] Prayer [x] Active listening [x] Non-anxious presence [x] Spiritual/emotional support [] Crisis/trauma care [] Spiritual counseling [] Bereavement support [] Provided bereavement packet [] Provided Bible/devotional materials [] Provided toy/stuffed animal, coloring book to patient or family member [] Provided Communion [] Anointing/What Cheer [] Salvation [x] Completed spiritual assessment [] Other: Impact on Illness or Injury [] Angry [] Fearful [] Anxious [] Often cries [] Exhaustion [] Unable to work [] Unable to attend restorationist [] Unable to walk/stand [] Unable to read [] Unable to drive [] Unable to eat/drink [] Unable to sleep [] Unable to be with family [] Patient intubated [] Other: Summary Time spent with patient 20 min
[2021-01-05] MEDS: sodium chloride 0.9% 1,000 ML 75 ML IV ×2 (11:11→23:06)
--- NOTE | 2021-01-05 12:06 | P.PN_ITS ---
Subjective Subjective: Interval history: 85 year old male with past medical history of bladder cancer presents to the ER with complaints of hematuria. s/p cystoscopy with clot evacuation son at bedside denies cp, sob , or dizziness Medications: Reviewed: Yes Vitals/I&O/Wt Last Vital Signs Temp 97.6 F 01/05/21 07:31 Pulse 70 01/05/21 07:31 Resp 18 01/05/21 07:31 BP 115/51 01/05/21 07:31 Pulse Ox 95 01/05/21 07:31 01/04/21 01/05/21 01/05/21 22:59 06:59 14:59 Intake Total 698.75 / 748.75 120 / 868.75 965 / 965 Output Total 0 / 0 Balance 698.75 / 748.75 120 / 868.75 965 / 965 Weight last 48 hrs Weight 190 lb Physical Exam Const: COMMON NORMALS: no acute distress, average body habitus and patient oriented x3 Neck/C-Spine: COMMON NORMALS: no JVD Chest: COMMONS NORMALS: normal inspection of the chest Resp: COMMON NORMALS: normal respiratory effort and No retractions Cardio: COMMON NORMALS: no JVD and regular rate RATE: regular rate GI: COMMON NORMALS: Normal to inspection, nondistended, normoactive bowel sounds present, Soft to palpation and non-tender PALPATION: Yes Soft to palpation Neuro: COMMON NORMALS: patient oriented x3 and CN's II-XII intact bilaterally Psych: COMMON NORMALS: mental status grossly normal and Normal thought process present THOUGHT PROCESS: Normal thought process present Urinary Catheter Management^: 3-way Urethral CBI: Cath Placed During This Visit: yes, but has since been removed by the nurse Reason for Continuing Indwelling Catheter: Acute Urinary Retention or Obstruction Urinary Catheter Date of Insertion: 01/04/21 Urinary Catheter Time of Insertion: 21:20 Date Urinary Catheter Removed: 01/04/21 Time Urinary Catheter Discontinued: 20:55 Data : 01/05/21 02:34 01/05/21 02:34 A&P Assessment and plan (1) Bladder cancer: Status: Acute Qualifiers: Bladder location: overlapping sites Qualified Code(s): C67.8 - Malignant neoplasm of overlapping sites of bladder (2) Bladder outlet obstruction: Status: Acute (3) CKD (chronic kidney disease): Status: Acute Qualifiers: Chronic kidney disease stage: stage 3 (moderate) Qualified Code(s): N18.3 - Chronic kidney disease, stage 3 (moderate) Additional A&P Information #hematuria #bladder outlet obstruction #bladder cancer --s/p cystoscopy --hold asa --appreciate urology eval --continue cbi #acute blood loss anemia --hgb lower --restart ferrous sulfate #HTN --restart amlodipine #CKD --Screat around baseline Attestations Medical Necessity Statement*: Michael Osullivan's hospital stay will require greater than 2 midnights for hematuria Coding Level of Care Code Acute Vending Machine Servicer for g Fwd Diagnoses Bladder cancer C67.8 Bladder location: overlapping sites Bladder outlet obstruction N32.0 CKD (chronic kidney disease) N18.3 Chronic kidney disease stage: stage 3 (moderate)
[2021-01-05] MEDS: ferrous sulfate EC 325 mg Tablet PO (12:18)
[2021-01-05] MEDS: amlodipine 10 mg Tablet PO (12:18)
--- NOTE | 2021-01-05 19:06 | PC.NURSE ---
Bedside Report to Ketty AUGUST at this time.
--- NOTE | 2021-01-05 20:22 | P.PN_ITS ---
Subjective Subjective: Interval history: Urology follow-up: Postop day #1 clot evacuation fulguration of hemorrhaging bladder tumor While it took a lot of CBI last night to keep his catheter functioning over the day today his urine has improved dramatically. The rate of CBI required to maintain clarity is much much less and there is actually a pale yellow tent to the urine. He is still having a lot of problems with bladder spasms. With the significant improvement that to be honest was not expected, I think it gives us more of an option to continue CBI as a primary therapeutic tool. More aggressive options such as embolization, cystectomy, or change entirely to a hospice type plan have been put on hold for now. Regarding his bladder spasms we will try a multi pronged approach including oxybutynin, oral pain medication, and Pyridium. While the results still are very favorable today there has been little additional stimulus to his very friable bladder tumor and for that reason he still is at significant risk of recurrent hemorrhage. 3 conversations today with the patient to with his son encompassing approximately 90 minutes. All the above was explained in detail in addition to alternatives. The difficulty of transfer options was also explained. Intention now is to continue CBI as needed work aggressively on pain control and bladder spasm control, and potentially moved to stopping CBI and even removing the catheter if he remains clear over the next 2 or so days. I do not see him as a candidate for any discharge planning prior to that. Vitals/I&O/Wt Last Vital Signs Temp 98.2 F 01/05/21 19:55 Pulse 62 01/05/21 19:55 Resp 16 01/05/21 19:55 BP 112/57 01/05/21 19:55 Pulse Ox 96 01/05/21 19:55 01/05/21 01/05/21 01/05/21 06:59 14:59 22:59 Intake Total 120 / 868.75 1884 / 5 150 / 2035 Balance 120 / 868.75 1884 150 / 2035 Weight last 48 hrs Weight 190 lb Physical Exam Const: COMMON NORMALS: no acute distress, alert and well nourished GENERAL APPEARANCE: well kempt and well developed ORIENTATION/CONSCIOUSNESS: not confused HENMT: COMMON NORMALS: normocephalic and atraumatic HEAD & SCALP: normocephalic and atraumatic Eye: COMMON NORMALS: conjunctivae normal and no scleral icterus CONJUNCTIVA: Yes conjunctivae normal Neck/C-Spine: COMMON NORMALS: full ROM GENERAL: Yes normal visual inspection Resp: COMMON NORMALS: normal respiratory effort EFFORT & INSPECTION: No labored and No Actively coughing GI: COMMON NORMALS: Soft to palpation and no masses PALPATION: Yes Soft to palpation : OTHER: Pale yellow urine with low CBI rate Neuro: SENSORIUM/ORIENTATION: Yes alert Psych: COMMON NORMALS: mental status grossly normal APPEARANCE: Yes grossly normal and Yes well kempt ATTITUDE: Yes calm and Yes engaged Skin: COMMON NORMALS: no rashes or lesions noted and no jaundice GENERAL SKIN EXAM: no rashes or lesions noted Urinary Catheter Management^: 3-way Urethral CBI: Cath Placed During This Visit: yes, but has since been removed by the nurse Reason for Continuing Indwelling Catheter: Acute Urinary Retention or Obstruction Urinary Catheter Date of Insertion: 01/04/21 Urinary Catheter Time of Insertion: 21:20 Date Urinary Catheter Removed: 01/04/21 Time Urinary Catheter Discontinued: 20:55 Data : 01/05/21 02:34 01/05/21 02:34 A&P Assessment and plan (1) Bladder cancer: Bleeding much improved. Better than expected. Continue CBI Status: Acute Qualifiers: Bladder location: overlapping sites Qualified Code(s): C67.8 - Malignant neoplasm of overlapping sites of bladder (2) Clot retention of urine: Secondary to bleeding progressively increasing bladder cancer mass. More manageable today on CBI with minimal manual irrigation and ability to reduce the flow Status: Acute (3) Bladder spasms: Status: Acute (4) Hypertension: Status: Acute Qualifiers: Hypertension type: essential hypertension Qualified Code(s): I10 - Essential (primary) hypertension (5) CKD (chronic kidney disease): Status: Acute Qualifiers: Chronic kidney disease stage: stage 3 (moderate) Qualified Code(s): N18.3 - Chronic kidney disease, stage 3 (moderate) (6) Diabetes: Status: Acute Qualifiers: Diabetes mellitus type: type 2 Diabetes mellitus repairer cylinder heads insulin use: with half-way use Diabetes mellitus complication status: with hyperglycemia Qualified Code(s): E11.65 - Type 2 diabetes mellitus with hyperglycemia; Z79.4 - transportation inspector (current) use of insulin (7) Atherosclerotic heart disease of [place] coronary artery without angina pectoris: Status: Acute Qualifiers: [place] vs. transplanted heart: [place] heart Qualified Code(s): I25.10 - Atherosclerotic heart disease of [place] coronary artery without angina pectoris Attestations Medical Necessity Statement*: Still requiring CBI and very active nursing care for patency of catheter. Coding Level of Care Code Acute Wrapper And Preserver for Ericg Fwd Diagnoses Bladder cancer C67.8 Bladder location: overlapping sites Clot retention of urine R33.8 Bladder spasms N32.89 Hypertension I10 Hypertension type: essential hypertension CKD (chronic kidney disease) N18.3 Chronic kidney disease stage: stage 3 (moderate) Diabetes E11.65; Z79.4 Diabetes mellitus type: type 2 Diabetes mellitus repairer cylinder heads insulin use: with half-way use Diabetes mellitus complication status: with hyperglycemia Atherosclerotic heart disease of [place] coronary artery without angina pectoris I25.10 [place] vs. transplanted heart: [place] heart
[2021-01-05] MEDS: oxybutynin chloride XL 5 MG TABLET 10 MG PO (21:20)
[2021-01-05] MEDS: phenazopyridine 100 mg Tablet 200 MG PO (21:20)
[2021-01-06] VITALS (10 sets, daily range): BP systolic 113–135; BP diastolic 48–62; PULSE 51–75; RESP 14–18; TEMP 36.4–37.2; O2SAT 92–99
[2021-01-06] MEDS: morphine 4 mg/mL SDV 1 mL 2 MG IVP ×4 (01:50→14:40)
[2021-01-06] MEDS: HYDROcodone-acetaminophen 5-325 mg Tablet 1 TAB PO ×4 (06:58→23:13)
[2021-01-06] MEDS: amlodipine 10 mg Tablet PO (09:02)
[2021-01-06] MEDS: docusate sodium 100 mg Capsule PO ×2 (09:02→18:01)
[2021-01-06] MEDS: ferrous sulfate EC 325 mg Tablet PO (09:02)
[2021-01-06] MEDS: phenazopyridine 100 mg Tablet 200 MG PO ×3 (09:02→18:00)
[2021-01-06] MEDS: oxybutynin chloride XL 5 MG TABLET 10 MG PO (09:05)
[2021-01-06] MEDS: sodium chloride 0.9% 1,000 ML 75 ML IV ×2 (11:23→23:58)
--- NOTE | 2021-01-06 12:57 | PM.PN ---
Subjective Subjective: Interval history: 85 year old male with past medical history of bladder cancer presents to the ER with complaints of hematuria. s/p cystoscopy with clot evacuation Continues to have discomfort what he describes Anthony site. As spasms. urine yellow. Undergoing CBI Medications: Reviewed: Yes Vitals/I&O/Wt Last Vital Signs Temp 98.9 F 01/06/21 11:06 Pulse 63 01/06/21 11:06 Resp 16 01/06/21 11:14 BP 116/58 01/06/21 11:06 Pulse Ox 95 01/06/21 11:14 01/05/21 01/06/21 01/06/21 22:59 06:59 14:59 Intake Total 150 / 5 893.75 / 2928.75 1021.25 / 1021.25 Balance 150 / 2035 893.75 / 2928.75 1021.25 / 1021.25 Physical Exam Const: COMMON NORMALS: no acute distress and patient oriented x3 Neck/C-Spine: COMMON NORMALS: no JVD Chest: COMMONS NORMALS: normal inspection of the chest Resp: COMMON NORMALS: normal respiratory effort and No retractions Cardio: COMMON NORMALS: no JVD and regular rate RATE: regular rate GI: COMMON NORMALS: Normal to inspection, nondistended, normoactive bowel sounds present Extremity: COMMON NORMALS: normal to inspection Neuro: COMMON NORMALS: patient oriented x3 Psych: COMMON NORMALS: mental status grossly normal and Normal thought process present THOUGHT PROCESS: Normal thought process present Skin: COMMON NORMALS: no rashes or lesions noted GENERAL SKIN EXAM: no rashes or lesions noted Urinary Catheter Management^: 3-way Urethral CBI: Cath Placed During This Visit: yes, but has since been removed by the nurse Reason for Continuing Indwelling Catheter: Acute Urinary Retention or Obstruction Urinary Catheter Date of Insertion: 01/04/21 Urinary Catheter Time of Insertion: 21:20 Date Urinary Catheter Removed: 01/04/21 Time Urinary Catheter Discontinued: 20:55 Data : 01/05/21 02:34 01/05/21 02:34 Micro: Microbiology 01/04/21 11:50 Urine Culture - Preliminary Urine,Clean Catch A&P Assessment and plan (1) Bladder spasms: Status: Acute (2) Clot retention of urine: Status: Acute (3) Bladder cancer: Status: Acute Qualifiers: Bladder location: overlapping sites Qualified Code(s): C67.8 - Malignant neoplasm of overlapping sites of bladder (4) FABBY (acute kidney injury): Status: Acute (5) CKD (chronic kidney disease): Status: Acute Qualifiers: Chronic kidney disease stage: stage 3 (moderate) Qualified Code(s): N18.3 - Chronic kidney disease, stage 3 (moderate) (6) Diabetes: Status: Acute Qualifiers: Diabetes mellitus type: type 2 Diabetes mellitus long term acute care registered nurse insulin use: with long term acute care registered nurse use Diabetes mellitus complication status: with hyperglycemia Qualified Code(s): E11.65 - Type 2 diabetes mellitus with hyperglycemia; Z79.4 - long term acute care registered nurse (current) use of insulin (7) Hyperlipidemia: Status: Acute Qualifiers: Hyperlipidemia type: mixed hyperlipidemia Qualified Code(s): E78.2 - Mixed hyperlipidemia Additional A&P Information #hematuria #bladder outlet obstruction #bladder cancer --s/p cystoscopy clot evacuation [place] --hold asa --appreciate urology eval --continue cbi --Continue hydrocodone, morphine, oxybutynin, Pyridium #acute blood loss anemia --hgb lower --restart ferrous sulfate #HTN --restart amlodipine #CKD --Screat around baseline Attestations Medical Necessity Statement*: Michael Osullivan's hospital stay will require greater than 2 midnights for hematuria Coding Level of Care Code Acute Security Coordinator for Chg Fwd Diagnoses Bladder spasms N32.89 Clot retention of urine R33.8 Bladder cancer C67.8 Bladder location: overlapping sites FABBY (acute kidney injury) N17.9 CKD (chronic kidney disease) N18.3 Chronic kidney disease stage: stage 3 (moderate) Diabetes E11.65; Z79.4 Diabetes mellitus type: type 2 Diabetes mellitus usp insulin use: with usp use Diabetes mellitus complication status: with hyperglycemia Hyperlipidemia E78.2 Hyperlipidemia type: mixed hyperlipidemia
[2021-01-06] MEDS: tizanidine 4 mg Tablet PO (18:00)
--- NOTE | 2021-01-06 18:41 | P.PN_ITS ---
Subjective Subjective: Interval history: Postoperative day #2 clot evacuation ful[place] of actively bleeding bladder cancer. Surprisingly he continues to improve regarding his bleeding status. He is still having a significant amount of bladder spasms but has not had as intense symptoms with the oxybutynin, Pyridium, and oral narcotics. Urine has remained much clear. Currently CBI is running low and there is more yellow. No recurrent bleeding today. Reviewed the importance of continuing catheter drainage and CBI as needed for healing of areas that were recently bleeding. Discussed catheter removal and voiding trial but the potential risk associated with that with spontaneous voiding. Reviewed again his options for more definitive treatment regarding the tumor. Previously radiation therapy has been considered but due to logistics the patient was not willing to consider it at that time. He is now if it provides some opportunity for reducing the risk of bleeding. Clearly he cannot have a catheter in at that time nor can he have a significant amount of bleeding ongoing. Alternative systemic therapies have been considered as well but not yet implemented. The value of maintaining CBI, manual irrigation and catheter at least for a few more days may make those above options a more likely reality. Creatinine stable, white count 14.6 Vitals/I&O/Wt Last Vital Signs Temp 97.5 F L 01/06/21 15:58 Pulse 51 L 01/06/21 15:58 Resp 14 01/06/21 15:58 BP 123/62 01/06/21 15:58 Pulse Ox 96 01/06/21 15:58 01/06/21 01/06/21 01/06/21 06:59 14:59 22:59 Intake Total 893.75 / 2928.75 1261.25 / 1261.25 Balance 893.75 / 2928.75 1261.25 / 1261.25 Physical Exam Const: COMMON NORMALS: no acute distress, alert and well nourished GENERAL APPEARANCE: well kempt and well developed ORIENTATION/CONSCIOUSNESS: not confused HENMT: COMMON NORMALS: normocephalic and atraumatic HEAD & SCALP: normocephalic and atraumatic Eye: COMMON NORMALS: conjunctivae normal and no scleral icterus CONJUNCTIVA: Yes conjunctivae normal Neck/C-Spine: COMMON NORMALS: full ROM GENERAL: Yes normal visual inspection Resp: COMMON NORMALS: normal respiratory effort EFFORT & INSPECTION: No lab ored and No Actively coughing Neuro: COMMON NORMALS: no focal motor deficits SENSORIUM/ORIENTATION: Yes alert Psych: COMMON NORMALS: mental status grossly normal APPEARANCE: Yes grossly normal and Yes well kempt ATTITUDE: Yes calm and Yes engaged Skin: COMMON NORMALS: no rashes or lesions noted and no jaundice GENERAL SKIN EXAM: no rashes or lesions noted Urinary Catheter Management^: 3-way Urethral CBI: Cath Placed During This Visit: yes, but has since been removed by the nurse Reason for Continuing Indwelling Catheter: Acute Urinary Retention or Obstruction Urinary Catheter Date of Insertion: 01/04/21 Urinary Catheter Time of Insertion: 21:20 Date Urinary Catheter Removed: 01/04/21 Time Urinary Catheter Discontinued: 20:55 Data : 01/05/21 02:34 01/05/21 02:34 Micro: Microbiology 01/04/21 11:50 Urine Culture - Preliminary Urine,Clean Catch A&P Assessment and plan (1) Bladder cancer: Alternative treatment options will be discussed with Dr. Betancourt. Bleeding much improved. Better than expected. Continue CBI Status: Acute Qualifiers: Bladder location: overlapping sites Qualified Code(s): C67.8 - Malignant neoplasm of overlapping sites of bladder (2) Clot retention of urine: Secondary to bleeding progressively increasing bladder cancer mass. Continues to trend in a favorable direction Status: Acute (3) Bladder spasms: Some improvement on oxybutynin 5 mg twice a day. Will increase to 5 mg 3 times per day. Status: Acute (4) Hypertension: Status: Acute Qualifiers: Hypertension type: essential hypertension Qualified Code(s): I10 - Essential (primary) hypertension (5) CKD (chronic kidney disease): Status: Acute Qualifiers: Chronic kidney disease stage: stage 3 (moderate) Qualified Code(s): N18.3 - Chronic kidney disease, stage 3 (moderate) (6) Diabetes: Status: Acute Qualifiers: Diabetes mellitus type: type 2 Diabetes mellitus realtime court reporter insulin use: with [facility] use Diabetes mellitus complication status: with hyperglycemia Qualified Code(s): E11.65 - Type 2 diabetes mellitus with hyperglycemia; Z79.4 - home care physical therapist (current) use of insulin (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 transplanted heart: [place] heart Qualified Code(s): I25.10 - Atherosclerotic heart disease of [place] coronary artery without angina pectoris Attestations Medical Necessity Statement*: Still requiring care only available in hospital Coding Level of Care Code Acute Apprentice Cook for Chg Fwd Diagnoses Bladder cancer C67.8 Bladder location: overlapping sites Clot retention of urine R33.8 Bladder spasms N32.89 Hypertension I10 Hypertension type: essential hypertension CKD (chronic kidney disease) N18.3 Chronic kidney disease stage: stage 3 (moderate) Diabetes E11.65; Z79.4 Diabetes mellitus type: type 2 Diabetes mellitus realtime court reporter insulin use: with [facility] use Diabetes mellitus complication status: with hyperglycemia Atherosclerotic heart disease of [place] coronary artery without angina pectoris I25.10 [place] vs. transplanted heart: [place] heart
[2021-01-07] VITALS (12 sets, daily range): BP systolic 111–145; BP diastolic 46–82; PULSE 49–65; RESP 16–18; TEMP 36.6–37; O2SAT 90–97
[2021-01-07] MEDS: HYDROcodone-acetaminophen 5-325 mg Tablet 1 TAB PO ×4 (03:18→18:18)
[2021-01-07 06:18] LABS: Glucose Point of Care 119 mg/dL (70-110)
[2021-01-07] MEDS: phenazopyridine 100 mg Tablet 200 MG PO ×3 (08:18→21:27)
[2021-01-07] MEDS: amlodipine 10 mg Tablet PO (08:18)
[2021-01-07] MEDS: oxybutynin chloride XL 5 MG TABLET 15 MG PO (08:18)
[2021-01-07] MEDS: ferrous sulfate EC 325 mg Tablet PO (08:18)
[2021-01-07] MEDS: docusate sodium 100 mg Capsule PO ×2 (08:19→18:18)
[2021-01-07] MEDS: tizanidine 4 mg Tablet 2 MG PO ×2 (10:22→18:19)
--- NOTE | 2021-01-07 11:32 | PC.SOCIAL ---
IMM updated IMM updated with patient. Pg 2 copy provided. Patient verbalizes understanding. initialed, dated, timed and placed in chart.
[2021-01-07] MEDS: sodium chloride 0.9% 1,000 ML 75 ML IV (13:28)
[2021-01-07 13:47] LABS: Basophils % 0.3 %; Eosinophils # 0.2 10^3/uL (0.0-0.8); Eosinophils % 1.8 %; Hematocrit 21.3 % (42.0-52.0); Hemoglobin 6.7 g/dL (11.7-16.6); Lymphocytes # 1.4 10^3/uL (0.8-4.8); Lymphocytes % 14.8 %; Mean Corpuscular HGB Conc 31.5 g/dL (30.0-36.0); Mean Corpuscular Hemoglobin 32.7 pg (28.0-34.0); Mean Corpuscular Volume 103.9 fL (80-94); Mean Platelet Volume 9.4 fL (7.4-10.4); Monocytes # 0.5 10^3/uL (0.2-0.9); Monocytes % 5.2 %; Neutrophils # 7.45 10^3/uL (1.8-7.7); Neutrophils % 77.4 %; Nucleated Red Blood Cells % 0 %; Platelet Count 106 10^3/cmm (130-400); Red Blood Count 2.05 10^6/uL (4.1-5.3); Red Cell Distribution Width 14.7 % (12.1-15.1); White Blood Count 9.6 10^3/uL (4.0-10.0)
[2021-01-07 14:03] LABS: Alanine Aminotransferase < 5 U/L (0-41); Albumin Level 2.8 g/dL (3.5-5.2); Alkaline Phosphatase 68 IU/L (40-130); Anion Gap 12.1 (5-19); Aspartate Amino Transferase 15 U/L (0-40); Blood Urea Nitrogen 47 mg/dL (8-23); Calcium 7.6 mg/dL (8.5-10.5); Carbon Dioxide 21 mmol/L (22-29); Chloride 111 mmol/L (98-107); Globulin 1.8 g/dL (1.3-4.6); Glucose 107 mg/dL (65-115); Osmolality Calculated 303 mOsm/kg (285-295); Potassium 4.1 mmol/L (3.5-5.1); Sodium 140 mmol/L (136-145); Total Bilirubin 0.2 mg/dL (0.15-1.2); Total Protein 4.6 g/dL (6.6-8.7)
--- NOTE | 2021-01-07 14:58 | P.PN_ITS ---
Subjective Subjective: Interval history: 85 year old male with past medical history of bladder cancer presents to the ER with complaints of hematuria. s/p cystoscopy with clot evacuation briefly taken off CBI by nursing staff so patient could ambulate hematuria noted. H/H checked. PRBC ordered due to change discomfort intermittent Medications: Reviewed: Yes Vitals/I&O/Wt Last Vital Signs Temp 98.1 F 01/07/21 11:05 Pulse 63 01/07/21 11:05 Resp 16 01/07/21 11:05 BP 120/52 01/07/21 11:05 Pulse Ox 97 01/07/21 11:05 01/06/21 01/07/21 01/07/21 22:59 06:59 14:59 Intake Total 150 / 1411.25 1325 / 2736.25 1240 / 1240 Balance 150 / 1411.25 1325 / 2736.25 1240 / 1240 Physical Exam Const: COMMON NORMALS: no acute distress Neck/C-Spine: COMMON NORMALS: no JVD Resp: COMMON NORMALS: normal respiratory effort and No retractions Cardio: COMMON NORMALS: no JVD and regular rate RATE: regular rate GI: COMMON NORMALS: Soft to palpation and non-tender PALPATION: Yes Soft to palpation : OTHER: gary in place Urinary Catheter Management^: 3-way Urethral CBI: Cath Placed During This Visit: yes, but has since been removed by the nurse Reason for Continuing Indwelling Catheter: Acute Urinary Retention or Obstruction Urinary Catheter Date of Insertion: 01/04/21 Urinary Catheter Time of Insertion: 21:20 Date Urinary Catheter Removed: 01/04/21 Time Urinary Catheter Discontinued: 20:55 Data : 01/07/21 13:06 01/07/21 13:06 Micro: Microbiology 01/04/21 11:50 Urine Culture - Final Urine,Clean Catch A&P Assessment and plan (1) Bladder spasms: Status: Acute (2) Clot retention of urine: Status: Acute (3) Bladder cancer: Status: Acute Qualifiers: Bladder location: overlapping sites Qualified Code(s): C67.8 - Malignant neoplasm of overlapping sites of bladder Additional A&P Information #hematuria #bladder outlet obstruction #bladder cancer --s/p cystoscopy clot evacuation [place] --hold asa --appreciate urology eval --continue cbi --Continue hydrocodone, morphine, oxybutynin, Pyridium, tizanidine #acute blood loss anemia --hgb lower --1 unit PRBC ordered #HTN --amlodipine #CKD --Screat around baseline Dispo: monitor over weekend, may need transfer Attestations 2 Medical Necessity Statement*: Michael Osullivan's hospital stay will require greater than 2 midnights for hematuria Coding Level of Care Code Acute Patent Legal Assistant for Chg Fwd Diagnoses Bladder spasms N32.89 Clot retention of urine R33.8 Bladder cancer C67.8 Bladder location: overlapping sites
[2021-01-07] MEDS: sodium chloride 0.9% (100 ml) 100 ML 10 ML (18:19)
--- NOTE | 2021-01-07 18:21 | PM.PN ---
Subjective Subjective: Interval history: Urology follow-up: Remarkably he continues to do well. He was up somewhat today with ambulation limited by bladder spasms. He did have some increased hematuria but it was brief and completely resolved since. Low flow CBI. We spent a long time tonight talking about big picture plans. Still no definitive answer on tumor specific treatment that might help reduce recurrent bleeding but we have talked about radiation, immunotherapy, extirpative therapy and embolization type treatment. My initial concerns regarding the likelihood of persistent bleeding thankfully have not been realized but he is clearly at risk given the findings intraoperatively of the high vascularity of the tumor. Reviewed continuing CBI over the weekend in order to have further healing before voiding trial. We will need to stop the oxybutynin well before catheter removal to avoid increasing chance of urinary retention Vitals/I&O/Wt Last Vital Signs Temp 98.2 F 01/07/21 16:00 Pulse 56 L 01/07/21 16:00 Resp 17 01/07/21 16:00 BP 124/52 01/07/21 16:00 Pulse Ox 94 01/07/21 16:00 01/07/21 01/07/21 01/07/21 06:59 14:59 22:59 Intake Total 1325 / 2736.25 1240 / 1240 Balance 1325 / 2736.25 1240 / 1240 Physical Exam Narrative: EXAM NARRATIVE: Alert, oriented, no acute distress unless having a bladder spasm Good clear thought processes. Urine looks clear to orange without obvious blood. Good range of motion of extremities. No active bleeding. No labored respiration or wheezes No rashes or lesions Urinary Catheter Management^: 3-way Urethral CBI: Cath Placed During This Visit: yes, but has since been removed by the nurse Reason for Continuing Indwelling Catheter: Acute Urinary Retention or Obstruction Urinary Catheter Date of Insertion: 01/04/21 Urinary Catheter Time of Insertion: 21:20 Date Urinary Catheter Removed: 01/04/21 Time Urinary Catheter Discontinued: 20:55 Data : 01/07/21 13:06 01/07/21 13:06 Micro: Microbiology 01/04/21 11:50 Urine Culture - Final Urine,Clean Catch A&P Assessment and plan (1) Bladder cancer: Marked improvement in hemorrhage from the tumor. Some mild increase with ambulation but quickly resolved. Continue CBI for now. We will consider voiding trial soon if continues as doing currently. Status: Acute Qualifiers: Bladder location: overlapping sites Qualified Code(s): C67.8 - Malignant neoplasm of overlapping sites of bladder (2) Clot retention of urine: Secondary to bleeding progressively increasing bladder cancer mass. Continues to trend in a favorable direction Status: Acute (3) Bladder spasms: Overall he thinks the intensity and frequency of the bladder spasms have significantly improved. They become an issue after stopping the oxybutynin again. Status: Acute (4) Hypertension: Status: Acute Qualifiers: Hypertension type: essential hypertension Qualified Code(s): I10 - Essential (primary) hypertension (5) CKD (chronic kidney disease): Status: Acute Qualifiers: Chronic kidney disease stage: stage 3 (moderate) Qualified Code(s): N18.3 - Chronic kidney disease, stage 3 (moderate) (6) Diabetes: Status: Acute Qualifiers: Diabetes mellitus type: type 2 Diabetes mellitus watermaster insulin use: with [facility] use Diabetes mellitus complication status: with hyperglycemia Qualified Code(s): E11.65 - Type 2 diabetes mellitus with hyperglycemia; Z79.4 - [facility] (current) use of insulin (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 transplanted heart: [place] heart Qualified Code(s): I25.10 - Atherosclerotic heart disease of [place] coronary artery without angina pectoris Attestations Medical Necessity Statement*: Still requiring CBI Coding Level of Care Code Acute Parcel Post Delivery for Chg Fwd Diagnoses Bladder cancer C67.8 Bladder location: overlapping sites Clot retention of urine R33.8 Bladder spasms N32.89 Hypertension I10 Hypertension type: essential hypertension CKD (chronic kidney disease) N18.3 Chronic kidney disease stage: stage 3 (moderate) Diabetes E11.65; Z79.4 Diabetes mellitus type: type 2 Diabetes mellitus [facility] insulin use: with [facility] use Diabetes mellitus complication status: with hyperglycemia Atherosclerotic heart disease of [place] coronary artery without angina pectoris I25.10 [place] vs. transplanted heart: [place] heart
--- NOTE | 2021-01-07 20:02 | PC.NURSE ---
Bedside report to Ketty AUGUST at this time.
[2021-01-08] VITALS: BP 140/66; PULSE 52; RESP 16; TEMP 36.7; O2SAT 96
[2021-01-08 00:08] LABS: Hematocrit 25.2 % (42.0-52.0); Hemoglobin 8.1 g/dL (11.7-16.6)
[2021-01-08] MEDS: HYDROcodone-acetaminophen 5-325 mg Tablet 1 TAB PO ×2 (00:56→09:12)
[2021-01-08 03:38] VITALS: BP 128/51; PULSE 64; RESP 16; TEMP 36.8; O2SAT 97
--- NOTE | 2021-01-08 07:53 | PM.PN ---
Subjective Subjective: Interval history: Urology follow-up: Had a good night. Still having some spasms but decreasing intensity and interval as reviewed yesterday. Urine has remained relatively clear No fever or chills. Denies any new symptoms. Labs reviewed below. Will plan on removing the Anthony catheter on Sunday. In preparation for that will hold his oxybutynin after today's dose. Medications: Reviewed: Yes Vitals/I&O/Wt Last Vital Signs Temp 98.2 F 01/08/21 03:38 Pulse 64 01/08/21 03:38 Resp 16 01/08/21 03:38 BP 128/51 01/08/21 03:38 Pulse Ox 97 01/08/21 03:38 01/07/21 01/08/21 01/08/21 22:59 06:59 14:59 Intake Total 240 / 1480 325 / 1805 Output Total 3600 / 3600 Balance 240 / 1480 -3275 / -1795 Physical Exam Const: COMMON NORMALS: no acute distress, alert and well nourished GENERAL APPEARANCE: well kempt and well developed ORIENTATION/CONSCIOUSNESS: not confused Resp: COMMON NORMALS: normal respiratory effort EFFORT & INSPECTION: No labored and No Actively coughing Neuro: COMMON NORMALS: no focal motor deficits SENSORIUM/ORIENTATION: Yes alert Psych: COMMON NORMALS: mental status grossly normal APPEARANCE: Yes grossly normal and Yes well kempt ATTITUDE: Yes calm and Yes engaged Urinary Catheter Management^: 3-way Urethral CBI: Cath Placed During This Visit: yes, but has since been removed by the nurse Reason for Continuing Indwelling Catheter: Acute Urinary Retention or Obstruction Urinary Catheter Date of Insertion: 01/04/21 Urinary Catheter Time of Insertion: 21:20 Date Urinary Catheter Removed: 01/04/21 Time Urinary Catheter Discontinued: 20:55 Data : 01/07/21 23:55 01/07/21 13:06 Micro: Microbiology 01/04/21 11:50 Urine Culture - Final Urine,Clean Catch A&P Assessment and plan (1) Bladder cancer: Marked improvement in hemorrhage from the tumor. Some mild increase with ambulation but quickly resolved. Continue CBI for now. Plan for catheter removal on Sunday morning assuming continues current course. Hold oxybutynin after today's dose. Status: Acute Qualifiers: Bladder location: overlapping sites Qualified Code(s): C67.8 - Malignant neoplasm of overlapping sites of bladder (2) Clot retention of urine: Secondary to bleeding progressively increasing bladder cancer mass. Continues to trend in a favorable direction Status: Acute (3) Bladder spasms: Overall he thinks the intensity and frequency of the bladder spasms have significantly improved. They may well become an issue after stopping the oxybutynin. Status: Acute (4) Hypertension: Status: Acute Qualifiers: Hypertension type: essential hypertension Qualified Code(s): I10 - Essential (primary) hypertension (5) CKD (chronic kidney disease): Status: Acute Qualifiers: Chronic kidney disease stage: stage 3 (moderate) Qualified Code(s): N18.3 - Chronic kidney disease, stage 3 (moderate) (6) Diabetes: Status: Acute Qualifiers: Diabetes mellitus type: type 2 Diabetes mellitus [facility] insulin use: with terminal press operator use Diabetes mellitus complication status: with hyperglycemia Qualified Code(s): E11.65 - Type 2 diabetes mellitus with hyperglycemia; Z79.4 - [facility] (current) use of insulin (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 transplanted heart: [place] heart Qualified Code(s): I25.10 - Atherosclerotic heart disease of [place] coronary artery without angina pectoris Attestations Medical Necessity Statement*: See attending Coding Level of Care Code Acute Inventory Associate And Driver for Geo Martinez Diagnoses Bladder cancer C67.8 Bladder location: overlapping sites Clot retention of urine R33.8 Bladder spasms N32.89 Hypertension I10 Hypertension type: essential hypertension CKD (chronic kidney disease) N18.3 Chronic kidney disease stage: stage 3 (moderate) Diabetes E11.65; Z79.4 Diabetes mellitus type: type 2 Diabetes mellitus [facility] insulin use: with [facility] use Diabetes mellitus complication status: with hyperglycemia Atherosclerotic heart disease of [place] coronary artery without angina pectoris I25.10 [place] vs. transplanted heart: [place] heart
[2021-01-08 08:00] VITALS: BP 146/67; PULSE 71; RESP 16; TEMP 37; O2SAT 97
[2021-01-08] MEDS: oxybutynin chloride XL 5 MG TABLET 15 MG PO (09:12)
[2021-01-08] MEDS: docusate sodium 100 mg Capsule PO ×2 (09:12→18:11)
[2021-01-08] MEDS: ferrous sulfate EC 325 mg Tablet PO (09:12)
[2021-01-08] MEDS: amlodipine 10 mg Tablet PO (09:13)
[2021-01-08] MEDS: phenazopyridine 100 mg Tablet 200 MG PO ×3 (09:13→18:11)
[2021-01-08 09:37] LABS: Basophils # 0.1 10^3/uL (0.0-0.1); Basophils % 0.5 %; Eosinophils # 0.3 10^3/uL (0.0-0.8); Eosinophils % 2.8 %; Hematocrit 29.4 % (42.0-52.0); Hemoglobin 9.5 g/dL (11.7-16.6); Lymphocytes # 1.7 10^3/uL (0.8-4.8); Lymphocytes % 16.6 %; Mean Corpuscular HGB Conc 32.3 g/dL (30.0-36.0); Mean Corpuscular Hemoglobin 31.7 pg (28.0-34.0); Mean Platelet Volume 9.3 fL (7.4-10.4); Monocytes # 0.4 10^3/uL (0.2-0.9); Monocytes % 3.9 %; Neutrophils # 7.81 10^3/uL (1.8-7.7); Neutrophils % 75.7 %; Nucleated Red Blood Cells % 0 %; Platelet Count 124 10^3/cmm (130-400); Red Cell Distribution Width 16.6 % (12.1-15.1); White Blood Count 10.3 10^3/uL (4.0-10.0)
[2021-01-08 09:59] LABS: Alanine Aminotransferase 7 U/L (0-41); Alkaline Phosphatase 87 IU/L (40-130); Anion Gap 18.8 (5-19); Aspartate Amino Transferase 16 U/L (0-40); Blood Urea Nitrogen 48 mg/dL (8-23); Calcium 8.2 mg/dL (8.5-10.5); Carbon Dioxide 18 mmol/L (22-29); Chloride 112 mmol/L (98-107); Globulin 2.3 g/dL (1.3-4.6); Glucose 82 mg/dL (65-115); Osmolality Calculated 310 mOsm/kg (285-295); Potassium 4.8 mmol/L (3.5-5.1); Sodium 144 mmol/L (136-145); Total Bilirubin 0.4 mg/dL (0.15-1.2); Total Protein 5.3 g/dL (6.6-8.7)
[2021-01-08 11:31] VITALS: BP 135/68; PULSE 53; RESP 17; TEMP 37.3; O2SAT 93
[2021-01-08 16:00] VITALS: BP 135/52; PULSE 56; RESP 17; TEMP 36.7; O2SAT 94
--- NOTE | 2021-01-08 17:32 | P.PN_ITS ---
Subjective Subjective: Interval history: No new clinical events overnight. Gary in place Medications: Reviewed: Yes Vitals/I&O/Wt Last Vital Signs Temp 98.1 F 01/08/21 16:00 Pulse 56 L 01/08/21 16:00 Resp 17 01/08/21 16:00 BP 135/52 01/08/21 16:00 Pulse Ox 94 01/08/21 16:00 01/08/21 01/08/21 01/08/21 06:59 14:59 22:59 Intake Total 325 / 2205 600 / 600 Output Total 3600 / 3600 Balance -3275 / -1395 600 / 600 Physical Exam Const: COMMON NORMALS: no acute distress, average body habitus and patient oriented x3 Neck/C-Spine: COMMON NORMALS: no JVD Chest: COMMONS NORMALS: normal inspection of the chest Resp: COMMON NORMALS: normal respiratory effort and No retractions Cardio: COMMON NORMALS: no JVD and regular rate RATE: regular rate GI: COMMON NORMALS: Normal to inspection, nondistended, normoactive bowel sounds present, Soft to palpation and non-tender PALPATION: Yes Soft to palpation : OTHER: gary in place Extremity: COMMON NORMALS: normal to inspection Neuro: COMMON NORMALS: patient oriented x3 and CN's II-XII intact bilaterally Psych: COMMON NORMALS: mental status grossly normal and Normal thought process present THOUGHT PROCESS: Normal thought process present Skin: COMMON NORMALS: no rashes or lesions noted GENERAL SKIN EXAM: no rashes or lesions noted Urinary Catheter Management^: 3-way Urethral CBI: Cath Placed During This Visit: yes, but has since been removed by the nurse Reason for Continuing Indwelling Catheter: Acute Urinary Retention or Obstruction Urinary Catheter Date of Insertion: 01/04/21 Urinary Catheter Time of Insertion: 21:20 Date Urinary Catheter Removed: 01/04/21 Time Urinary Catheter Discontinued: 20:55 Data : 01/08/21 08:43 01/08/21 08:43 A&P Assessment and plan (1) Bladder spasms: Status: Acute (2) Clot retention of urine: Status: Acute (3) Bladder cancer: Status: Acute Qualifiers: Bladder location: overlapping sites Qualified Code(s): C67.8 - Malignant neoplasm of overlapping sites of bladder Additional A&P Information #hematuria #bladder outlet obstruction #bladder cancer --s/p cystoscopy clot evacuation [place] --hold asa --appreciate urology eval --continue cbi --Continue hydrocodone, morphine, oxybutynin, Pyridium, tizanidine #acute blood loss anemia --hgb lower --1 unit PRBC ordered #HTN --amlodipine #CKD --Screat around baseline Dispo: monitor over weekend, may need transfer Attestations Medical Necessity Statement*: continue hospitalization management of hematuria Time Spent in Patient Care: Greater than 35 minutes (>than 50% of time spent in counselling and/or direct pt care on unit) . Coding Level of Care Code Acute Veneer Marker for Geo Martinez Diagnoses Bladder spasms N32.89 Clot retention of urine R33.8 Bladder cancer C67.8 Bladder location: overlapping sites
[2021-01-08] MEDS: sodium chloride 0.9% 1,000 ML 75 ML IV (18:10)
--- NOTE | 2021-01-08 19:33 | PC.NURSE ---
shift summary pt has went through 20 3,000ml bags of normal saline for his CBI this shift with a total of 4650 out of 1st bag and then 2250 out of 2nd bag. pt has had clear orange to light yellow urine this shift. after taking pyridium as ordered the pt urine would be the clear orange and before next dose pt urine would be clear yellow urine. pt has had small amount of small clots in gary bag. no complaints of pain after am prn pain medication dose.
[2021-01-08 19:51] VITALS: BP 134/62; PULSE 62; RESP 17; TEMP 37.5; O2SAT 93
[2021-01-09] VITALS: BP 140/64; PULSE 60; RESP 15; TEMP 37.4; O2SAT 91
[2021-01-09 04:01] VITALS: BP 143/83; PULSE 62; RESP 18; TEMP 36.8; O2SAT 94
[2021-01-09] MEDS: HYDROcodone-acetaminophen 5-325 mg Tablet 1 TAB PO (04:17)
[2021-01-09] MEDS: tizanidine 4 mg Tablet 2 MG PO (04:17)
[2021-01-09] MEDS: sodium chloride 0.9% 1,000 ML 75 ML IV (05:45)
--- NOTE | 2021-01-09 06:04 | PC.NURSE ---
SHIFT SUMMARY Has rested well tonight. Had no c/o pain until woke this am with c/o some spasms . Was given po Hydrocodone and Zanaflex with good relief obtained. Anthony draining well with CBI running at slow drip. One bag of irrigation fluid and started on a second this shift. Urine staying clear orange to a bright yellow/orange. No clots observed. IV infusing at 75ml/hr rate. Is very pleasant
[2021-01-09 07:49] VITALS: BP 137/62; PULSE 57; RESP 17; TEMP 36.7; O2SAT 93
--- NOTE | 2021-01-09 07:59 | P.PN_ITS ---
Subjective Subjective: Interval history: Urology follow-up: Continue with CBI at low flow. No recurrent problems related to clot obstruction of the catheter. Has increased his activity more and tolerated well. No fever or chills. No new complaints. Plan: Increase activity and facilitate with converting to a PIID, using leg bag while ambulating, and encouraging up out of bed. Will remove Anthony catheter in the morning for voiding trial. Medications: Reviewed: Yes Vitals/I&O/Wt Last Vital Signs Temp 98.0 F 01/09/21 07:49 Pulse 57 L 01/09/21 07:49 Resp 17 01/09/21 07:49 BP 137/62 01/09/21 07:49 Pulse Ox 93 01/09/21 07:49 01/08/21 01/09/21 01/09/21 22:59 06:59 14:59 Intake Total 600 / 1875 1108.75 / 2983.75 Balance 600 / 1875 1108.75 / 2983.75 Physical Exam Const: COMMON NORMALS: no acute distress, alert and well nourished GENERAL APPEARANCE: well kempt and well developed ORIENTATION/CONSCIOUSNESS: not confused HENMT: COMMON NORMALS: normocephalic and atraumatic HEAD & SCALP: normocephalic and atraumatic Eye: COMMON NORMALS: conjunctivae normal and no scleral icterus CONJUNCTIVA: Yes conjunctivae normal Neck/C-Spine: COMMON NORMALS: full ROM GENERAL: Yes normal visual inspection Resp: EFFORT & INSPECTION: No labored and No Actively coughing : OTHER: Urine is clear with CBI running at a low rate Extremity: COMMON NORMALS: no clubbing, cyanosis or edema Neuro: COMMON NORMALS: no focal motor deficits SENSORIUM/ORIENTATION: Yes alert Psych: COMMON NORMALS: mental status grossly normal APPEARANCE: Yes grossly normal and Yes well kempt ATTITUDE: Yes calm and Yes engaged Skin: COMMON NORMALS: no rashes or lesions noted and no jaundice GENERAL SKIN EXAM: no rashes or lesions noted Urinary Catheter Management^: 3-way Urethral CBI: Cath Placed During This Visit: yes, but has since been removed by the nurse Reason for Continuing Indwelling Catheter: Acute Urinary Retention or Obs truction Urinary Catheter Date of Insertion: 01/04/21 Urinary Catheter Time of Insertion: 21:20 Date Urinary Catheter Removed: 01/04/21 Time Urinary Catheter Discontinued: 20:55 Data : 01/08/21 08:43 01/08/21 08:43 Attestations Medical Necessity Statement*: see attending Coding Level of Care Code Acute Medical Support Assistant for Geo Martinez
[2021-01-09] MEDS: ferrous sulfate EC 325 mg Tablet PO (09:12)
[2021-01-09] MEDS: amlodipine 10 mg Tablet PO (09:12)
[2021-01-09] MEDS: docusate sodium 100 mg Capsule PO ×2 (09:12→17:03)
[2021-01-09] MEDS: phenazopyridine 100 mg Tablet 200 MG PO ×3 (09:16→17:03)
--- NOTE | 2021-01-09 11:39 | P.PN_ITS ---
Subjective Subjective: Interval history: No new clinical events overnight Medications: Reviewed: Yes Vitals/I&O/Wt Last Vital Signs Temp 98.0 F 01/09/21 07:49 Pulse 57 L 01/09/21 07:49 Resp 17 01/09/21 07:49 BP 137/62 01/09/21 07:49 Pulse Ox 93 01/09/21 07:49 01/08/21 01/09/21 01/09/21 22:59 06:59 14:59 Intake Total 600 / 1875 1108.75 / 2983.75 603.75 / 603.75 Balance 600 / 1875 1108.75 / 2983.75 603.75 / 603.75 Physical Exam Const: COMMON NORMALS: no acute distress, average body habitus and patient oriented x3 Neck/C-Spine: COMMON NORMALS: no JVD Chest: COMMONS NORMALS: normal inspection of the chest Resp: COMMON NORMALS: normal respiratory effort and No retractions Cardio: COMMON NORMALS: no JVD and regular rate RATE: regular rate GI: COMMON NORMALS: Normal to inspection, nondistended, normoactive bowel sounds present, Soft to palpation and non-tender PALPATION: Yes Soft to palpation : OTHER: gary in place Extremity: COMMON NORMALS: normal to inspection Neuro: COMMON NORMALS: patient oriented x3 and CN's II-XII intact bilaterally Psych: COMMON NORMALS: mental status grossly normal and Normal thought process present THOUGHT PROCESS: Normal thought process present Skin: COMMON NORMALS: no rashes or lesions noted GENERAL SKIN EXAM: no rashes or lesions noted Urinary Catheter Management^: 3-way Urethral CBI: Cath Placed During This Visit: yes, but has since been removed by the nurse Reason for Continuing Indwelling Catheter: Acute Urinary Retention or Obstruction Urinary Catheter Date of Insertion: 01/04/21 Urinary Catheter Time of Insertion: 21:20 Date Urinary Catheter Removed: 01/04/21 Time Urinary Catheter Discontinued: 20:55 Data : 01/08/21 08:43 01/08/21 08:43 A&P Assessment and plan (1) Bladder spasms: Status: Acute (2) Clot retention of urine: Status: Acute (3) Bladder cancer: Status: Acute Qualifiers: Bladder location: overlapping sites Qualified Code(s): C67.8 - Ma lignant neoplasm of overlapping sites of bladder Additional A&P Information #hematuria #bladder outlet obstruction #bladder cancer --s/p cystoscopy clot evacuation [place] --hold asa --appreciate urology eval --CBI managment per urology --Continue hydrocodone, morphine, oxybutynin, Pyridium, tizanidine --Removal of gary tomorrow #acute blood loss anemia --hgb lower --1 unit PRBC ordered --H/H stable --Repeat cbc in am #HTN --amlodipine #CKD --Screat around baseline Attestations Medical Necessity Statement*: Continue hospitalization for managment of kashmir turia Time Spent in Patient Care: Greater than 35 minutes (>than 50% of time spent in counselling and/or direct pt care on unit) . Coding Level of Care Code Acute Fire Alarm Mechanic for Geo Martinez Diagnoses Bladder spasms N32.89 Clot retention of urine R33.8 Bladder cancer C67.8 Bladder location: overlapping sites
[2021-01-09 12:00] VITALS: BP 137/72; PULSE 56; RESP 17; TEMP 36.8; O2SAT 91
--- NOTE | 2021-01-09 14:13 | PC.SOCIAL ---
IMM updated IMM updated with patient. Pg 2 copy provided. Patient verbalizes understanding. initialed, dated, timed and placed in chart.
[2021-01-09 16:00] VITALS: BP 141/64; PULSE 60; RESP 17; TEMP 37.4; O2SAT 91
--- NOTE | 2021-01-09 18:26 | PC.NURSE ---
Notified Dr Coreas that patient said his gout is acting up and would like to take his home med Colcrys 0.6mg. Bottle states to take 2 tablets at onset of attack and followed by 1 tablet in 1 hour. no more than 3 tablets in [address] Coreas put order in for med.
[2021-01-09] MEDS: colchicine 0.6 mg Tablet PO (19:56)
[2021-01-09 20:00] VITALS: BP 141/64; PULSE 17; TEMP 37.4; O2SAT 91
[2021-01-10] VITALS: BP 138/49; PULSE 53; RESP 16; TEMP 37.3; O2SAT 94
[2021-01-10 04:00] VITALS: BP 156/71; PULSE 66; RESP 17; TEMP 36.9; O2SAT 93
[2021-01-10 06:09] LABS: Basophils % 0.3 %; Eosinophils # 0.2 10^3/uL (0.0-0.8); Eosinophils % 2.5 %; Hematocrit 28.8 % (42.0-52.0); Hemoglobin 9.2 g/dL (11.7-16.6); Lymphocytes # 1.5 10^3/uL (0.8-4.8); Mean Corpuscular HGB Conc 31.9 g/dL (30.0-36.0); Mean Corpuscular Hemoglobin 31.5 pg (28.0-34.0); Mean Corpuscular Volume 98.6 fL (80-94); Mean Platelet Volume 9.1 fL (7.4-10.4); Monocytes # 0.4 10^3/uL (0.2-0.9); Monocytes % 4.7 %; Neutrophils # 6.54 10^3/uL (1.8-7.7); Neutrophils % 74.9 %; Nucleated Red Blood Cells % 0 %; Platelet Count 122 10^3/cmm (130-400); Red Blood Count 2.92 10^6/uL (4.1-5.3); Red Cell Distribution Width 16.2 % (12.1-15.1); White Blood Count 8.7 10^3/uL (4.0-10.0)
[2021-01-10 06:25] LABS: Alanine Aminotransferase 6 U/L (0-41); Albumin Level 3.1 g/dL (3.5-5.2); Alkaline Phosphatase 88 IU/L (40-130); Anion Gap 15.1 (5-19); Aspartate Amino Transferase 14 U/L (0-40); Blood Urea Nitrogen 44 mg/dL (8-23); Calcium 7.8 mg/dL (8.5-10.5); Carbon Dioxide 19 mmol/L (22-29); Chloride 113 mmol/L (98-107); Globulin 2.2 g/dL (1.3-4.6); Glucose 124 mg/dL (65-115); Osmolality Calculated 309 mOsm/kg (285-295); Potassium 4.1 mmol/L (3.5-5.1); Sodium 143 mmol/L (136-145); Total Bilirubin 0.4 mg/dL (0.15-1.2); Total Protein 5.3 g/dL (6.6-8.7)
--- NOTE | 2021-01-10 07:49 | PM.PN ---
Subjective Subjective: Interval history: Urology note: No new complaints this morning. Catheter functioning well overnight. Typical spasms but less overall as time has progressed. No fever or chills. Bladder fills with about 50 to 60 cc of sterile saline via CBI and outlet drainage plugged. Balloon deflated. Catheter removed without difficulty. Initiate 6 bottle void, frequent bladder scans, in and out catheterization as needed. Contingencies reviewed for recurrent severe bleeding, more definitive options such as surgical removal, embolization etc. pending outcome of today's voiding trial. ADDENDUM: Has voided since the catheter was removed. His urine has remained dark consistent with old blood. Has had no obstructive symptoms. Not completely emptying his bladder but does not have any significant feeling of retention strangury a severe hesitancy etc. No increasing abdominal complaints. Also reviewed with Dr. Betancourt this morning the ability of the patient to be received radiation therapy were in the past he did not think that would be possible. He recommended to soon as it safe to proceed with reevaluation for radiation therapy We will reevaluate tomorrow and if he is doing well from a voiding perspective without increasing active bleeding will consider discharge home. Reviewed that he will not be able to use to his usual activity of lifting and assisting much with his but he was willing to consider that fair trade off to be home Vitals/I&O/Wt Last Vital Signs Temp 98.4 F 01/10/21 04:00 Pulse 66 01/10/21 04:00 Resp 17 01/10/21 04:00 BP 156/71 01/10/21 04:00 Pulse Ox 93 01/10/21 04:00 01/09/21 01/10/21 01/10/21 22:59 06:59 14:59 Intake Total 480 / 1563.75 Output Total 1000 / 1000 Balance 480 / 1563.75 -1000 / 563.75 Physical Exam Const: COMMON NORMALS: alert and well nourished GENERAL APPEARANCE: well kempt and well developed ORIENTATION/CONSCIOUSNESS: not confused Resp: COMMON NORMALS: normal respiratory effort EFFORT & INSPECTION: No labored and No Actively coughing Neuro: SENSORIUM/ORIENTATION: Yes alert Psych: COMMON NORMALS: mental status grossly normal APPEARANCE: Yes grossly normal and Yes well kempt ATTITUDE: Yes calm and Yes engaged Skin: COMMON NORMALS: no rashes or lesions noted and no jaundice GENERAL SKIN EXAM: no rashes or lesions noted Urinary Catheter Management^: 3-way Urethral CBI: Cath Placed During This Visit: yes, but has since been removed by the nurse Reason for Continuing Indwelling Catheter: Acute Urinary Retention or Obstruction Urinary Catheter Date of Insertion: 01/04/21 Urinary Catheter Time of Insertion: 21:20 Date Urinary Catheter Removed: 01/04/21 Time Urinary Catheter Discontinued: 20:55 Data : 01/10/21 05:20 01/10/21 05:20 A&P Assessment and plan (1) Bladder cancer: Progressive. Complicating management via recurrent bleeding with clot retention. Alternative options Status: Acute Qualifiers: Bladder location: overlapping sites Qualified Code(s): C67.8 - Malignant neoplasm of overlapping sites of bladder (2) Clot retention of urine: being pursued. We will to stop the bleeding with fulguration. Has been managed now for multiple days with CBI with good response. Catheter removed this morning for voiding trial. Status: Acute Attestations Medical Necessity Statement*: Hopefully can be discharged tomorrow if continues to void adequately without recurrent severe bleeding as before. Coding Level of Care Code Acute Retail Client Manager for Chg Fwd Exam Expanded Problem Focused Diagnoses Bladder cancer C67.8 Bladder location: overlapping sites Clot retention of urine R33.8
[2021-01-10 07:53] VITALS: BP 150/60; PULSE 82; RESP 20; TEMP 36.8; O2SAT 94
[2021-01-10] MEDS: phenazopyridine 100 mg Tablet 200 MG PO ×3 (08:11→17:27)
[2021-01-10] MEDS: docusate sodium 100 mg Capsule PO ×2 (08:12→17:28)
[2021-01-10] MEDS: ferrous sulfate EC 325 mg Tablet PO (08:12)
[2021-01-10] MEDS: amlodipine 10 mg Tablet PO (08:12)
[2021-01-10 11:09] VITALS: BP 148/65; PULSE 70; RESP 16; TEMP 36.9; O2SAT 92
--- NOTE | 2021-01-10 12:15 | PC.NURSE ---
notified Dr Thompson that patient voided 140ml and bladder scan after void shows 270. Per Dr Thompson, continue to monitor patient and keep him updated.
[2021-01-10 15:40] VITALS: BP 165/67; PULSE 67; RESP 18; TEMP 36.7; O2SAT 92
--- NOTE | 2021-01-10 16:04 | PM.PN ---
Subjective Subjective: Interval history: Patient was seen and examined this morning, Gary catheter has been removed, continues to have dark pinkish urine.H/H is stable. Medications: Reviewed: Yes Vitals/I&O/Wt Last Vital Signs Temp 98.1 F 01/10/21 15:40 Pulse 67 01/10/21 15:40 Resp 18 01/10/21 15:40 BP 165/67 01/10/21 15:40 Pulse Ox 92 01/10/21 15:40 01/10/21 01/10/21 01/10/21 06:59 14:59 22:59 Intake Total 220 / 220 Output Total 1000 / 1000 420 / 420 60 / 480 Balance -1000 / 563.75 -200 / -200 -60 / -260 Physical Exam Const: COMMON NORMALS: patient oriented x3 HENMT: COMMON NORMALS: normocephalic and atraumatic HEAD & SCALP: normocephalic and atraumatic Resp: COMMON NORMALS: clear to auscultation bilaterally AUSCULTATION: clear to auscultation bilaterally Cardio: COMMON NORMALS: regular rate, regular rhythm, S1 normal heart sound present, S2 normal heart sound present, No gallops present (Cardio), No murmurs present (Cardio), No rub (Cardio) and Peripheral pulses 2+ throughout RATE: regular rate RHYTHM: regular rhythm HEART SOUNDS: S1 normal heart sound present and S2 normal heart sound present PERIPHERAL PULSES: Peripheral pulses 2+ throughout GI: COMMON NORMALS: Normal to inspection, nondistended, normoactive bowel sounds present, Soft to palpation, non-tender, No hepatosplenomegaly present and no masses AUSCULTATION: Yes normoactive bowel sounds PALPATION: Yes Soft to palpation and Yes No hepatosplenomegaly present RECTAL EXAM: Yes deferred Extremity: COMMON NORMALS: no clubbing, cyanosis or edema and no pedal edema Neuro: COMMON NORMALS: patient oriented x3 Urinary Catheter Management^: 3-way Urethral CBI: Cath Placed During This Visit: yes, but has since been removed by the nurse Reason for Continuing Indwelling Catheter: Decision to DC Catheter Urinary Catheter Date of Insertion: 01/04/21 Urinary Catheter Time of Insertion: 21:20 Date Urinary Catheter Removed: 01/10/21 Time Urinary Catheter Discontinued: 08:41 Data : 01/10/21 05:20 01/10/21 05:20 A&P Assessment and plan (1) Bladder spasms: Status: Acute (2) Clot retention of urine: Status: Acute (3) Bladder cancer: Status: Acute Qualifiers: Bladder location: overlapping sites Qualified Code(s): C67.8 - Malignant neoplasm of overlapping sites of bladder Additional A&P Information #hematuria #bladder outlet obstruction #bladder cancer --s/p cystoscopy clot evacuation [place] --hold asa --appreciate urology eval --CBI managment per urology --Continue hydrocodone, morphine, oxybutynin, Pyridium, tizanidine --S/P Removal of gary #acute blood loss anemia --hgb lower --1 unit PRBC ordered --H/H stable --Repeat cbc in am #HTN --amlodipine #CKD --Screat around baseline Attestations Medical Necessity Statement*: Patient is to be in hospital for management of hematuria. Coding Level of Care Code Acute Commercial Leasing Agent for Geo Martinez Diagnoses Bladder spasms N32.89 Clot retention of urine R33.8 Bladder cancer C67.8 Bladder location: overlapping sites
--- NOTE | 2021-01-10 16:27 | PC.NURSE ---
notified Dr Thompson that patient urinated 70 and bladder scan after urination is 230. Per Dr Thompson, continue monitoring patient.
[2021-01-10] MEDS: ondansetron 2 mg/ML SDV 2 mL 4 MG IVP (17:50)
[2021-01-10 19:58] VITALS: BP 154/66; PULSE 57; RESP 17; TEMP 37.4; O2SAT 90
[2021-01-11] VITALS: BP 159/61; PULSE 65; RESP 17; TEMP 37.2; O2SAT 91
[2021-01-11 04:00] VITALS: BP 126/54; PULSE 58; RESP 17; TEMP 37.1; O2SAT 90
--- NOTE | 2021-01-11 07:23 | PM.DCS ---
Discharge Providers Date of Admission: 01/04/21 13:29 Date of Discharge: January 11, 2021 Attending Provider at Admission: Trena Reyes MD Attending Provider at Discharge: Myrna Coreas Primary Care Provider: Dima Mckenzie Diagnoses at Discharge Discharge Diagnosis (1) Bladder cancer: Status: Chronic Qualifiers: Bladder location: overlapping sites Qualified Code(s): C67.8 - Malignant neoplasm of overlapping sites of bladder (2) Clot retention of urine: Status: Resolved Reason for Visit Reason for Visit: Clot urinary retention secondary to bladder cancer Hospital Course Hospital Course Admitted on 01/04/2021 with refractory hematuria related to a well defined progressive locally bladder cancer. He had been followed by Dr. 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 When he presented he was in clot retention. Attempts at evacuation were only partially successful and he was taken emergently to the operating room for clot evacuation and fulguration. Intraoperatively he was found to have large amount of clot, ongoing active bleeding from multiple sites of the tumor. As best as possible fulguration with a gyrus bipolar button probe was utilized with some success. All clot was evacuated completion of the procedure and he was placed on continuous bladder irrigation. Postoperatively he gradually cleared. Manual irrigation was utilized as needed along with CBI. He had a lot of problems with bladder spasms but ultimately on 01/10/2021 the Anthony catheter was removed. His urine gradually cleared. There was never any acute bleeding post that just passage of old bloody material. Bladder spasms had completely resolved. Was still quite anemic. Hospitalist service managed his other medical problems throughout his hospital stay. Plans were made at discharge for follow-up with Dr. Betancourt and radiation oncology for consideration of palliative radiation therapy. Initially this had been recommended to the patient but he did not feel that he could manage it due to caring for his who is ill with chronic Alzheimer's. Since that time and based on the severity of this episode arrangements have been made to make that possible. I have contacted Dr. Betancourt and he will help facilitate that as soon as possible. I will not schedule particular follow-up for urologic intervention but will be available for recurrent bleeding or other issues requiring urologic care. . Physical Exam Const: COMMON NORMALS: no acute distress, alert and well nourished GENERAL APPEARANCE: well kempt and well developed ORIENTATION/CONSCIOUSNESS: not confused HENMT: COMMON NORMALS: normocephalic and atraumatic HEAD & SCALP: normocephalic and atraumatic Eye: COMMON NORMALS: no scleral icterus Neck/C-Spine: COMMON NORMALS: full ROM GENERAL: Yes normal visual inspection Resp: COMMON NORMALS: normal respiratory effort EFFORT & INSPECTION: No labored and No Actively coughing : OTHER: Some penile edema. Bladder is nondistended. Neuro: COMMON NORMALS: no focal motor deficits SENSORIUM/ORIENTATION: Yes alert Psych: COMMON NORMALS: mental status grossly normal APPEARANCE: Yes grossly normal and Yes well kempt ATTITUDE: Yes calm and Yes engaged Skin: COMMON NORMALS: no rashes or lesions noted and no jaundice GENERAL SKIN EXAM: no rashes or lesions noted Urinary Catheter Management^: 3-way Urethral CBI: Cath Placed During This Visit: yes, but has since been removed by the nurse Reason for Continuing Indwelling Catheter: Decision to DC Catheter Urinary Catheter Date of Insertion: 01/04/21 Urinary Catheter Time of Insertion: 21:20 Date Urinary Catheter Removed: 01/10/21 Time Urinary Catheter Discontinued: 08:41 Discharge Data Vitals: Last Vital Signs Temp 98.7 F 01/11/21 04:00 Pulse 58 L 01/11/21 04:00 Resp 17 01/11/21 04:00 BP 126/54 01/11/21 04:00 Pulse Ox 90 01/11/21 04:00 Discharge Plan Discharge Patient Disposition: Home Condition: Stable Prescriptions: Continued colchicine [Colcrys] 0.6 mg tablet 0.6 mg PO BID PRN (Reason: unknown) RF: 0 coenzyme [id number] E 100-100 mg-unit capsule 1 cap PO DAILY RF: 0 potassium chloride 10 mEq capsule, extended release 10 meq PO DAILY RF: 0 atorvastatin 20 mg tablet 20 mg PO DAILY RF: 0 furosemide 40 mg tablet 40 mg PO BID RF: 0 amlodipine 10 mg tablet 10 mg PO DAILY RF: 0 losartan 100 mg tablet 100 mg PO DAILY Qty: 90 RF: 3 ferrous sulfate 325 mg (65 mg iron) tablet 325 mg PO DAILY RF: 0 Discontinued aspirin [Adult Low Dose Aspirin] 81 mg tablet,delayed release (DR/EC) 81 mg PO DAILY RF: 0 Discharge Orders: Discharge Order (Routine); Ordered 01/11/21 Ordered By: Charanjit Thompson Referrals: Dima Mckenzie [Primary Care Provider] - 01/17/21 3:00 pm Charanjit Thompson MD [Physician] - (Only as needed. He will call for problems CALL [phone] ) Jim Betancourt MD [Hospitalist] - 01/17/21 10:00 am (Patient well-known to you for history of refractory bladder cancer neuroendocrine differentiation. Initially felt he could not undergo palliative radiation therapy due to caring for his . He has since had a severe bleeding episode requiring fulguration clot evacuation and prolonged hospitalization with continuous bladder irrigation. He is now willing and has worked out the details I would make it is reasonable to have radiation therapy. Hopefully will make a significant impact on his risk for severe re-bleeding. Reviewed alternatives including embolization techniques as well as extirpative therapy both fairly high risk.) Discharge Diet: Usual diet Discharge Activity: Limit activity as instructed Patient Instructions: Cystoscopy (DC), Bladder Cancer (GEN), Acute Hematuria (GEN), Opioid Safety Activity Restrictions/Additional Instructions: 1. We will make an appointment to see Dr. Betancourt and his staff regarding next level of treatment for refractory bladder cancer. 2. I will not schedule a follow-up appointment with urology but will be available if you have any concerns or questions. 3. Follow-up with Dr. Mckenzie per his preference. Discharge Attestations Time Spent in Discharge Care*: greater than 30 min Quality Metrics Clinical Quality Measures During this hospital stay, did patient experience: None Coding Level of Care Code Acute Chg FW DC note Exam Comprehensive Diagnoses Bladder cancer C67.8 Bladder location: overlapping sites Clot retention of urine R33.8
[2021-01-11 07:26] VITALS: BP 129/51; PULSE 58; RESP 16; TEMP 37; O2SAT 91
[2021-01-11] MEDS: phenazopyridine 100 mg Tablet 200 MG PO ×2 (07:44→11:19)
[2021-01-11] MEDS: docusate sodium 100 mg Capsule PO (07:44)
[2021-01-11] MEDS: ferrous sulfate EC 325 mg Tablet PO (07:44)
[2021-01-11] MEDS: amlodipine 10 mg Tablet PO (07:44)
--- NOTE | 2021-01-11 11:54 | PC.SOCIAL ---
IMM Update Updated pt of medicare rights. Verbalized understanding. Gave copy to pt, placed initialed, timed, dated copy in chart.
[2021-01-11 11:56] VITALS: BP 129/51; PULSE 69; RESP 16; TEMP 36.7; O2SAT 91
--- NOTE | 2021-01-11 12:06 | PM.PN ---
Subjective Subjective: Interval history: Patient was seen and examined this morning,no acute events overnight. urine is clearing. Medications: Reviewed: Yes Vitals/I&O/Wt Last Vital Signs Temp 98.1 F 01/11/21 11:56 Pulse 69 01/11/21 11:56 Resp 16 01/11/21 11:56 BP 129/51 01/11/21 11:56 Pulse Ox 91 01/11/21 11:56 01/10/21 01/11/21 01/11/21 22:59 06:59 14:59 Intake Total 240 / 460 120 / 580 120 / 120 Output Total 355 / 775 400 / 1175 Balance -115 / -315 -280 / -595 120 / 120 Physical Exam Const: COMMON NORMALS: patient oriented x3 HENMT: COMMON NORMALS: normocephalic and atraumatic HEAD & SCALP: normocephalic and atraumatic Resp: COMMON NORMALS: clear to auscultation bilaterally AUSCULTATION: clear to auscultation bilaterally Cardio: COMMON NORMALS: regular rate, regular rhythm, S1 normal heart sound present, S2 normal heart sound present, No gallops present (Cardio), No murmurs present (Cardio), No rub (Cardio) and Peripheral pulses 2+ throughout RATE: regular rate RHYTHM: regular rhythm HEART SOUNDS: S1 normal heart sound present and S2 normal heart sound present PERIPHERAL PULSES: Peripheral pulses 2+ throughout GI: COMMON NORMALS: Normal to inspection, nondistended, normoactive bowel sounds present, Soft to palpation, non-tender, No hepatosplenomegaly present and no masses AUSCULTATION: Yes normoactive bowel sounds PALPATION: Yes Soft to palpation and Yes No hepatosplenomegaly present RECTAL EXAM: Yes deferred Extremity: COMMON NORMALS: no clubbing, cyanosis or edema and no pedal edema Neuro: COMMON NORMALS: patient oriented x3 Urinary Catheter Management^: 3-way Urethral CBI: Cath Placed During This Visit: yes, but has since been removed by the nurse Reason for Continuing Indwelling Catheter: Decision to DC Catheter Urinary Catheter Date of Insertion: 01/04/21 Urinary Catheter Time of Insertion: 21:20 Date Urinary Catheter Removed: 01/10/21 Time Urinary Catheter Discontinued: 08:41 Data : 01/10/21 05:20 01/10/21 05:20 A&P Assessment and plan (1) Bladder spasms: Status: Resolved (2) Clot retention of urine: Status: Resolved (3) Bladder cancer: Status: Chronic Qualifiers: Bladder location: overlapping sites Qualified Code(s): C67.8 - Malignant neoplasm of overlapping sites of bladder Additional A&P Information #hematuria #bladder outlet obstruction #bladder cancer --s/p cystoscopy clot evacuation [place] --hold asa --appreciate urology eval --CBI managment per urology --Continue hydrocodone, morphine, oxybutynin, Pyridium, tizanidine --S/P Removal of gary #acute blood loss anemia --hgb lower --S/P 1 unit PRBC --H/H stable #HTN --amlodipine #CKD --Screat around baseline Attestations Medical Necessity Statement*: Patient is ready to be discharged today. Coding Level of Care Code Acute Tax Services Specialist for Geo Martinez Diagnoses Bladder spasms N32.89 Clot retention of urine R33.8 Bladder cancer C67.8 Bladder location: overlapping sites
[2021-01-11 12:49] VITALS: BP 129/51; PULSE 69; RESP 16; TEMP 36.7; O2SAT 91
== END 2021-01-11 12:49 | disposition home or self-care (01) | DRG 829 ==
LOC: ER 14:20 → MEDSURG 17:03
PROVIDERS: Urology; Admitting Provider Internal Medicine; Emergency Provider Family Medicine; PCP Family Medicine; Visit Provider Hospitalist
PROC: 0T5B8ZZ Destruction of Bladder, Via Natural or Artificial Opening Endoscopic (ICD-10-PCS; 2021-01-04 20:30)
PROC: 0TJB8ZZ Inspection of Bladder, Via Natural or Artificial Opening Endoscopic (ICD-10-PCS; CPT 52000; 2021-01-04 20:30)
DX: C7A.1 Malignant poorly differentiated neuroendocrine tumors (principal); N17.9 Acute kidney failure, unspecified; D62 Acute posthemorrhagic anemia; I25.10 Atherosclerotic heart disease of native coronary artery without angina pectoris; E11.22 Type 2 diabetes mellitus with diabetic chronic kidney disease; E11.65 Type 2 diabetes mellitus with hyperglycemia; I12.9 Hypertensive chronic kidney disease with stage 1 through stage 4 chronic kidney disease, or unspecified chronic kidney disease; N18.30 Chronic kidney disease, stage 3 unspecified; M10.9 Gout, unspecified; E78.2 Mixed hyperlipidemia; Z95.1 Presence of aortocoronary bypass graft; Z87.891 Personal history of nicotine dependence; N32.0 Bladder-neck obstruction; Z92.21 Personal history of antineoplastic chemotherapy; N32.89 Other specified disorders of bladder
CPT/HCPCS: 36415; 36416; 36430; 51702; 51798; 80048; 80053; 81001; 82962; 85014; 85018; 85025; 86850; 86900; 86920; 87086; 96365; 96375; 96376; 99285; J0330; J0696; J1100; J2270; J2405; J2704; J2710; J3010; J3490; J7030; P9016

== ENCOUNTER 2021-01-17 09:28 | Outpatient (CLI) | payer MEDICARE, SELFPAY ==
[2021-01-17 10:55] LABS: Basophils % 0.3 %; Eosinophils # 0.1 10^3/uL (0.0-0.8); Eosinophils % 1.1 %; Hematocrit 25.4 % (42.0-52.0); Lymphocytes # 1.6 10^3/uL (0.8-4.8); Lymphocytes % 14.5 %; Mean Corpuscular HGB Conc 31.5 g/dL (30.0-36.0); Mean Corpuscular Hemoglobin 32.8 pg (28.0-34.0); Mean Corpuscular Volume 104.1 fL (80-94); Mean Platelet Volume 9.7 fL (7.4-10.4); Monocytes # 0.6 10^3/uL (0.2-0.9); Monocytes % 5.2 %; Neutrophils # 8.76 10^3/uL (1.8-7.7); Neutrophils % 78.3 %; Nucleated Red Blood Cells % 0 %; Platelet Count 154 10^3/cmm (130-400); Red Blood Count 2.44 10^6/uL (4.1-5.3); Red Cell Distribution Width 15.7 % (12.1-15.1); White Blood Count 11.2 10^3/uL (4.0-10.0)
[2021-01-17 11:09] LABS: Alanine Aminotransferase 10 U/L (0-41); Albumin Level 3.5 g/dL (3.5-5.2); Alkaline Phosphatase 115 IU/L (40-130); Anion Gap 16.3 (5-19); Aspartate Amino Transferase 13 U/L (0-40); Blood Urea Nitrogen 39 mg/dL (8-23); Calcium 8.1 mg/dL (8.5-10.5); Carbon Dioxide 21 mmol/L (22-29); Chloride 111 mmol/L (98-107); Globulin 2.2 g/dL (1.3-4.6); Glucose 98 mg/dL (65-115); Osmolality Calculated 307 mOsm/kg (285-295); Potassium 4.3 mmol/L (3.5-5.1); Sodium 144 mmol/L (136-145); Total Bilirubin 0.7 mg/dL (0.15-1.2); Total Protein 5.7 g/dL (6.6-8.7)
[2021-01-17 11:50] LABS: Iron 43 ug/dL (59-158); Percent Saturation 25.7 % (20-50); Total Iron Binding Capacity 167 mcg/dl; Unsaturated Iron Binding 124 ug/dL (112-347)
--- NOTE | 2021-01-17 14:55 | ONC FU_ITS ---
Dr. Betancourt Patient Follow-Up Note Patient: Michael Osullivan Unit #: [id number]: 1935 Dicatated By: Jim Betancourt M.D.Date of Visit:Jan 17, 2021 Onc Med Follow-up/Prog Note Chief Complaint: Bladder cancer. 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 He has a known history of primary membranous glomerulonephritis, initially diagnosed in 2011 and treated with cyclophosphamide. In 2015 he had noncomplete remission after second line treatment with rituximab. During follow-up he has slowly advancing disease, and he has had associated chronic kidney disease with creatinine stable in the range of 2.5 to 3 mg/dL. On 06/21/2020 he had presented to the [facility] emergency room with gross hematuria. His CT abdomen/pelvis showed a lobulated soft tissue density along the posterior aspect of the bladder measuring 6.0 x 5.0 cm. A partly fluid-filled structure projecting directly adjacent to the right posterior paracentral bladder measuring 5.5 x 3.5 cm appeared consistent with a diverticulum. A solid lobulation with the diverticulum measuring 2.0 x 1.5 cm. The findings appeared highly suspicious for bladder malignancy extending into bladder diverticula. There was no retroperitoneal adenopathy or other evidence of metastatic disease. He was seen for urology consultation by Dr. Michael Ford. His outpatient cystoscopy confirmed presence of a bladder lesion. On 07/07/2020 he underwent cystoscopy with transurethral resection and fulguration of bladder neoplasm. The dominant finding was a rounded up lesion centered a little left of the midline posteriorly above the trigone measuring in the 2 to 5 cm diameter range. The remainder of the bladder mucosa appeared normal. The lesion appeared to be superficially necrotic and it appeared to extend more or less into or through the bladder wall as opposed to a surface lesion protruding into the bladder lumen. The lesion was partially resected and it was then fulgurated in its entirety. Pathology showed high-grade neuroendocrine carcinoma. 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 It did show lamina propria invasion. There was no definitive muscularis propria present for assessment. There was no lymphovascular invasion identified. I had seen him initially on 08/18/2020. He then had further evaluation with staging PET/CT on 08/28/2020. It showed a posterior bladder mass measuring 7.9 x 5.8 cm with marked increased FDG activity. Also noted was a right sided bladder diverticulum measuring 2.2 x 4.4 cm. There was no evidence for local or distant metastatic disease. Subcentimeter pelvic lymph nodes were too small to characterize. 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 His medical illnesses, in addition to the membranous glomerulonephritis and chronic kidney disease, include hypertension, type 2 diabetes, coronary artery disease, atrial fibrillation, and gout. He had a very minimal smoking history, limited to a period of about 10 years. He quit smoking by age 26. INTERIM HISTORY: He began cycle 1 of carboplatin/etoposide on 09/22/2020. It was complicated by neutropenia and anemia. He required PRBC transfusion, but he otherwise had uneventful recovery, and he continued with cycle 2 on 10/20/2020. Restaging CT abdomen/pelvis on 10/29/2020 showed posterior bladder mass measuring up to 0.8 x 9.6 cm, possibly larger compared to the previous study from May 2020. A bladder diverticulum was noted to measure 2.1 x 4.9 cm. There was no evidence for metastatic disease. In the absence of any evidence for significant response to the chemotherapy, he was recommended to stop treatment. 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 I had also considered the possibility of a trial of immunotherapy, though I did have concern about the risk of it worsening his underlying glomerulonephritis. As such, he has not yet had any further treatment. On 01/04/2021 he was admitted to the hospital after presenting to the emergency room with gross hematuria. He underwent cystoscopy with clot evacuation and fulguration of multiple bleeding sites of bladder tumor. Dr. Thompson indicated that he had a lot of difficulty achieving hemostasis. He was discharged home on 01/11/2021. At that point, he indicated he was more agreeable to looking into the feasibility of getting radiation. He is seen now for a follow-up visit. He says he feels good, though he does not have an abundance of energy. His ECOG score is 1. His appetite is not the best. He does not have fever or night sweats. He has no shortness of breath, cough, or chest pain. He has no GI complaints other than some constipation, which he manages adequately with a laxative. He has noticed that he has had a little more frequent urination since the hospitalization. He has had occasional dysuria. He has had no recurrence of hematuria. He has no significant joint or bone pain. He does not complain of headache or dizziness, and he has no focal neurologic symptoms. Medications: Allopurinol (150 mg) Tablet Oral daily, amLODIPine Besylate (10 mg) Tablet Oral daily, Aspirin 81 Tablet, enteric coated Oral daily, Atorvastatin Calcium (20 mg) Tablet Oral daily, Furosemide (40 mg) Tablet Oral b.i.d., hydrALAZINE HCl (50 mg) Tablet Oral t.i.d., Klor-Con 10 (10 meq) Tablet, controlled release Oral daily, Losartan Potassium (100 mg) Tablet Oral daily Allergies: No Known Allergies. Vital Signs: Performed on Jan 17, 2021 09:40 Height - 70.00 in Weight - 151.6 lbs (LOW) BSA - 1.86 sq.m BMI - 21.75 Temperature - 98.8 F Pulse - 80 /min Respiration - 18 /min BP - 135/62 mm(hg) O2 Sat - 95 % (LOW) Pain - 0 Physical Examination: Constitutional - He still looks pretty good generally, Eyes - Sclerae nonicteric. Conjunctivae clear, ENMT - No lesions noted in the oral cavity, Hematologic/Lymphatic - No cervical, clavicular, or axillary adenopathy, Respiratory - Lungs are clear with good air movement bilaterally, Cardiovascular - Heart rhythm is regular. There is a II/ systolic murmur. There is no gallop or rub noted, Abdomen - Soft. Liver and spleen are not enlarged. There is no abdominal mass or ascites noted and there is no inguinal adenopathy, Extremities - Mild lower extremity edema, Neurologic - No focal neurologic deficits noted. Lab/Imaging: Test performed on Jan 17, 2021 10:29 Iron 43 mcg/dL Sodium 144 mmol/L Iron Binding Capacity (TIBC) 167 mcg/dl Potassium 4.3 mmol/L % Iron Saturation 25.7 % Chloride 111 mmol/L CO2 21 mmol/L UIBC 124 mcg/dL Anion Gap 16.3 BUN 39 mg/dL Creatinine 3.3 mg/dL Cr Clearance (Est) 17.5300 mL/min Glucose 98 mg/dL Osmolality - Calculated 307 mOsm/kg Calcium 8.1 mg/dL Protein, Total 5.7 g/dL Albumin 3.5 g/dL Globulin 2.2 g/dL Bilirubin, Total 0.7 mg/dL ALT (SGPT) 10 U/L AST (SGOT) 13 U/L Alkaline Phosphatase 115 IU/L WBC 11.2 10 3/uL RBC 2.44 10 6/uL HGB 8.0 g/dL HCT 25.4 % MCV 104.1 fL MCH 32.8 pg MCHC 31.5 g/dL RDW 15.7 % Platelet Count 154 10 3/cmm MPV 9.7 fL Neutrophils 8.76 10 3/uL Lymphocytes 1.6 10 3/uL Monocytes 0.6 10 3/uL Eosinophils 0.1 10 3/uL Basophils 0.0 10 3/uL Neutrophil % 78.3 % Lymphocyte % 14.5 % Monocyte % 5.2 % Eosinophil % 1.1 % Basophils % 0.3 % NRBC % 0 % Problem List: 1. High-grade neuroendocrine carcinoma of the urinary bladder. He underwent cystoscopy with transurethral resection and fulguration of the bladder tumor on 07/07/2020. 2. 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 3. Hypertension. 4. Type 2 diabetes, currently not requiring medication. 5. Coronary artery disease with previous coronary artery bypass surgery. 6. Atrial fibrillation. 7. Gout. 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 He underwent cystoscopy with transurethral resection and fulguration of the bladder tumor on 07/07/2020. 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 His staging PET/CT showed no evidence for local or distant metastatic disease. 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 His repeat CT abdomen/pelvis after 2 cycles showed no evidence of response, and he was advised to stop treatment. At that point we had discussed the possibility of chemoradiation or palliative radiation alone, but he declined to to his being primary caregiver for his who has severe dementia. He was sent recently hospitalized with an episode of gross hematuria. He underwent cystoscopy with fulguration of multiple bleeding sites of bladder tumor. He has since then indicated his willingness to proceed with radiation, but the details of arranging for a caregiver for his are still being worked out. He will be scheduled for consultation with the radiation oncologist. In the meantime, I will recheck his laboratory studies and he will be given a refill for his furosemide. In addition, I will look into the possibility of getting a next generation sequencing study on his previous biopsy. Signed By: Jim Betancourt M.D. <<Signature on File>>
== END 2021-01-17 09:29 | disposition home or self-care (01) ==
PROVIDERS: PCP Family Medicine; Visit Provider Internal Medicine Medical Oncology
DX: C7A.8 Other malignant neuroendocrine tumors (principal); N05.2 Unspecified nephritic syndrome with diffuse membranous glomerulonephritis; N18.4 Chronic kidney disease, stage 4 (severe); E11.22 Type 2 diabetes mellitus with diabetic chronic kidney disease; I10 Essential (primary) hypertension; E11.59 Type 2 diabetes mellitus with other circulatory complications; I25.10 Atherosclerotic heart disease of native coronary artery without angina pectoris; Z95.5 Presence of coronary angioplasty implant and graft; I48.91 Unspecified atrial fibrillation; M10.9 Gout, unspecified; Z79.899 Other long term (current) drug therapy
CPT/HCPCS: 36415; 80053; 83540; 83550; 85025; 99214

== ENCOUNTER 2021-01-18 10:43 | Inpatient (IN) | payer MEDICARE, MEDICAID, SELFPAY ==
[2021-01-18] VITALS (15 sets, daily range): BP systolic 89–125; BP diastolic 37–73; PULSE 69–106; RESP 14–22; TEMP 35.6–36.7; O2SAT 91–98; BMI 22.9
--- NOTE | 2021-01-18 11:00 | W.ED.ABDPA2 ---
HPI - Abdominal Pain General: Chief Complaint: Abdominal Pain Stated Complaint: SEVERE ABD & GROIN PAIN, BLEEDING FROM PENIS Time Seen by Provider: 01/18/21 10:59 History of Present Illness: HPI narrative: This patient is a 85-year-old male who presents to the emergency department for gross hematuria severe abdominal pain pelvic pain. Patient was just seen yesterday by Dr. Betancourt oncology. And patient is followed by Dr. Thompson. And had a recent admission to the hospital a few days ago. Patient has a history of bladder cancer and acute renal retention and acute renal and insufficiency related to the bladder cancer. Patient presents stating he is having a lot of hematuria for the past several days. And now cannot seem to urinate. Patient claims significant pain. Will do medical evaluation treat as needed MD elicited complaint: abdominal pain Pertinent past history: other Onset (ago): day(s) Pain Consistency: constant Location: None Severity: moderate Quality: aching and fullness Associated Symptoms: Reports dysuria and hematuria; Denies chills, fever(s), nausea and vomiting Review of Systems General: Reports: 10 or more systems reviewed and unremarkable except in HPI and below Const: Denies: fever(s), chills, body aches or fatigue Eyes: Denies: change in vision or blurry vision ENMT: Denies: throat pain, hoarseness or mouth pain Card: Denies: chest pain, palpitations, irregular heart rhythm, edema, swelling of feet/ankles or lightheadedness Resp: Denies: dyspnea, productive cough, non-productive cough, wheezing or pain on inspiration GI: Denies: abdominal pain, nausea or vomiting : Reports: dysuria, urinary urgency, difficulty starting urination, oliguria and hematuria; Denies: flank pain, urinary frequency or urinary hesitancy Musc: Denies: neck pain, back pain, extremity pain, extremity swelling, joint pain, joint swelling, joint redness, joint warmth or limited range of motion Skin/Breast: Denies: rash, pruritus, erythema or skin tenderness Neuro: Denies: headache(s), numbness in extremities or weakness in extremities Psych: Denies: anxiety or depression PFS ED PFSH: Medical History (Updated 01/18/21 @ 13:02 by Vahid Tariq MD) Atherosclerotic heart disease of [place] coronary artery without angina pectoris [place]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 Bradycardia CKD (chronic kidney disease) Diabetes Fatigue Gout Hyperlipidemia Hypertension Leg edema Surgical History H/O: knee surgery History of hernia repair Hx of CABG Family History Denies family history of Diabetes CAD (coronary artery disease) Dementia Chronic kidney disease (CKD) Anesthesia complication Bleeding disorder Family history of premature coronary artery disease Lung disease Cancer Stroke Social History Smoking and tobacco status: former smoker Alcohol intake: never Physical Exam Const: COMMON NORMALS: no acute distress, average body habitus, patient oriented x3, no limitations, healthy appearing, alert and well nourished HENMT: COMMON NORMALS: normocephalic, atraumatic, hearing grossly normal bilaterally, external ears normal, EAC's normal, TM's normal bilaterally, Normal external nose present, Normal nasal mucous membranes and turbinates present, moist oral mucous membranes, oropharynx normal, dentition normal and gingiva normal HEAD & SCALP: normocephalic and atraumatic NOSE: Normal external nose present and Normal nasal mucous membranes and turbinates present EXTERNAL EAR: Yes external ears normal EXTERNAL AUDITORY CANAL: EAC's normal TYMPANIC MEMBRANE: TM's normal bilaterally Neck/C-Spine: COMMON NORMALS: full ROM, no lymphadenopathy, supple, no meningeal signs, no JVD, Thyroid normal and No carotid bruits THYROID: Thyroid normal Chest: COMMONS NORMALS: normal inspection of the chest, normal palpation of entire chest wall, normal inspection of the breasts and normal palpation of the breasts Breast/axilla inspection: Yes normal inspection of the breasts BREAST/AXILLA PALPATION: Yes normal palpation of the breasts Resp: COMMON NORMALS: normal respiratory effort, No retractions, No use of accessory muscles, clear to auscultation bilaterally and percussion normal AUSCULTATION: clear to auscultation bilaterally PERCUSSION: percussion normal Cardio: COMMON NORMALS: no JVD, regular rate, regular rhythm, S1 normal heart sound present, S2 normal heart sound present, No gallops present (Cardio), No clicks present (Cardio), No murmurs present (Cardio), No rub (Cardio) and Peripheral pulses 2+ throughout RATE: regular rate RHYTHM: regular rhythm HEART SOUNDS: S1 normal heart sound present and S2 normal heart sound present PERIPHERAL PULSES: Peripheral pulses 2+ throughout GI: COMMON NORMALS: Normal to inspection, nondistended, normoactive bowel sounds present, Soft to palpation, non-tender, No hepatosplenomegaly present, no masses and no bruits PALPATION: Yes Soft to palpation, Yes No hepatosplenomegaly present and Yes Bladder palpation abnormal : BLADDER/KIDNEY EXAM: Yes Bladder palpation abnormal and Yes CVA tenderness bilateral MALE GROIN/PERINEUM EXAM: Yes other (Gross hematuria spontaneously) MEATUS: Blood at meatus present Back/Pelvis: COMMON NORMALS: thoracic and lumbar spine normal to inspection, no thoracic nor lumbar tenderness, thoraco-lumbar ROM normal and straight leg raise negative bilaterally GENERAL BACK: Yes CVA tenderness Extremity: COMMON NORMALS: normal to inspection, full ROM, capillary refill normal, no joint enlargement, no clubbing, cyanosis or edema, no calf tenderness and no pedal edema Neuro: COMMON NORMALS: patient oriented x3 SENSORIUM/ORIENTATION: Yes alert MENINGEAL SIGNS: Yes no meningeal signs Course Reevaluation(s): Reevaluation #1: I did discuss at length with patient and he agrees with admission to the hospital. Time: 12:53 Consultations: Consultation #1: I have discussed at length with Dr. Thompson urology. He request the patient have a 24 [place] urinary catheter or larger for CBI he will see patient as a consult. Time: 12:35 Consultation #2: I did discuss at length with . Hospitalist he is agreed to see the patient and write additional orders Time: 13:01 Vital Signs: Vital signs: Vital Signs Pulse Rate 106 H 01/18/21 13:10 Respiratory Rate 18 01/18/21 11:50 Blood Pressure 97/59 01/18/21 13:10 Pulse Oximetry 97 01/18/21 13:10 MDM - Abdominal Pain MDM Narrative: Medical decision making narrative: This patient is a 85-year-old male who presents to the emergency department for gross hematuria severe abdominal pain pelvic pain. Patient was just seen yesterday by Dr. Betancourt oncology. And patient is followed by Dr. Thompson. And had a recent admission to the hospital a few days ago. Patient has a history of bladder cancer and acute renal retention and acute renal and insufficiency related to the bladder cancer. Patient presents stating he is having a lot of hematuria for the past several days. And now cannot seem to urinate. Patient claims significant pain. Will do medical evaluation treat as needed I have discussed at length with Dr. Thompson urology. He request the patient have a 24 [place] urinary catheter or larger for CBI he will see patient as a consult. I did discuss at length with . Hospitalist he is agreed to see the patient and write additional orders Lab Data: Labs: Lab Results 01/18/21 01/18/21 01/18/21 Range/Units 12:05 12:05 12:05 WBC 15.0 H (4.0-10.0) 10^3/ uL RBC 1.77 L (4.1-5.3) 10^6/u L Hgb 5.8 L* (11.7-16.6) g/dL Hct 19.1 L* (42.0-52.0) % MCV 107.9 H (80-94) fL MCH 32.8 (28.0-34.0) pg MCHC 30.4 (30.0-36.0) g/dL RDW 15.7 H (12.1-15.1) % Plt Count 182 (130-400) 10^3/c mm MPV 9.6 (7.4-10.4) fL Neut % (Auto) 86.6 % Lymph % (Auto) 7.8 % [place] % (Auto) 4.7 % Eos % (Auto) 0.0 % Baso % (Auto) 0.3 % Neut # (Auto) 12.97 H (1.8-7.7) 10^3/u L Lymph # (Auto) 1.2 (0.8-4.8) 10^3/u L [place] # (Auto) 0.7 (0.2-0.9) 10^3/u L Eos # (Auto) 0.0 (0.0-0.8) 10^3/u L Baso # (Auto) 0.0 (0.0-0.1) 10^3/u L Nucleated RBC % (a uto) 0 % Nucleated RBCs # 0.0 /100WBC PT 15.50 H (12.1-14.9) SECO NDS INR 1.19 (0.8-1.2) APTT 29.4 (23.9-36.7) SECO NDS Sodium 143 (136-145) mmol/L Potassium 3.8 (3.5-5.1) mmol/L Chloride 111 H (98-107) mmol/L Carbon Dioxide 15 L (22-29) mmol/L Anion Gap 20.8 H (5-19) BUN 44 H (8-23) mg/dL Creatinine 3.7 H (0.7-1.2) mg/dL GFR Calculation Not Reportable Glucose 240 H (65-115) mg/dL Calculated Osmolal ity 315 H (285-295) mOsm/k g Calcium 7.2 L (8.5-10.5) mg/dL Total Bilirubin 0.6 (0.15-1.2) mg/dL AST 10 (0-40) U/L ALT 8 (0-41) U/L Alkaline Phosphata se 88 (40-130) IU/L Total Protein 4.5 L (6.6-8.7) g/dL Albumin 2.8 L (3.5-5.2) g/dL Globulin 1.7 (1.3-4.6) g/dL Urine Color (Yellow) Urine Appearance (CLEAR) Urine pH (5-7) Ur Specific Gravit y (1.005-1.030) Urine Protein (Negative) Urine Glucose (UA) (Normal) Urine Ketones (Negative) Urine Blood (Negative) Urine Nitrate (Negative) Urine Bilirubin (Negative) Urine Urobilinogen (Negative) mg/dL Ur Leukocyte [place] ase (Negative) Urine RBC (0-2) /hpf Urine WBC (0-5) /hpf Ur Squamous Epith Cells (0-5) /hpf Amorphous Sediment Urine Bacteria (NONE) /hpf 01/18/ Range/Units 12:05 WBC (4.0-10.0) 10^3/ uL RBC (4.1-5.3) 10^6/u L Hgb (11.7-16.6) g/dL Hct (42.0-52.0) % MCV (80-94) fL MCH (28.0-34.0) pg MCHC (30.0-36.0) g/dL RDW (12.1-15.1) % Plt Count (130-400) 10^3/c mm MPV (7.4-10.4) fL Neut % (Auto) % Lymph % (Auto) % [place] % (Auto) % Eos % (Auto) % Baso % (Auto) % Neut # (Auto) (1.8-7.7) 10^3/u L Lymph # (Auto) (0.8-4.8) 10^3/u L [place] # (Auto) (0.2-0.9) 10^3/u L Eos # (Auto) (0.0-0.8) 10^3/u L Baso # (Auto) (0.0-0.1) 10^3/u L Nucleated RBC % (a uto) % Nucleated RBCs # /100WBC PT (12.1-14.9) SECO NDS INR (0.8-1.2) APTT (23.9-36.7) SECO NDS Sodium (136-145) mmol/L Potassium (3.5-5.1) mmol/L Chloride (98-107) mmol/L Carbon Dioxide (22-29) mmol/L Anion Gap (5-19) BUN (8-23) mg/dL Creatinine (0.7-1.2) mg/dL GFR Calculation Glucose (65-115) mg/dL Calculated Osmolal ity (285-295) mOsm/k g Calcium (8.5-10.5) mg/dL Total Bilirubin (0.15-1.2) mg/dL AST (0-40) U/L ALT (0-41) U/L Alkaline Phosphata se (40-130) IU/L Total Protein (6.6-8.7) g/dL Albumin (3.5-5.2) g/dL Globulin (1.3-4.6) g/dL Urine Color Red (Yellow) Urine Appearance Bloody A (CLEAR) Urine pH 7 (5-7) Ur Specific Gravit y 1.000 L (1.005-1.030) Urine Protein Neg (Negative) Urine Glucose (UA) Norm (Normal) Urine Ketones Negative (Negative) Urine Blood 3+ H (Negative) Urine Nitrate Negative (Negative) Urine Bilirubin Neg (Negative) Urine Urobilinogen Norm (Negative) mg/dL Ur Leukocyte [place] ase Negative (Negative) Urine RBC Too numerous to c nt H (0-2) /hpf Urine WBC None (0-5) /hpf Ur Squamous Epith Cells None (0-5) /hpf Amorphous Sediment Not Reportable Urine Bacteria None (NONE) /hpf Discharge Plan Discharge Patient Disposition: Admitted As Inpatient Clinical Impression: Acute blood loss anemia, Bladder cancer, Bladder outlet obstruction, CKD (chronic kidney disease), Abdominal pain, Acute urinary retention Condition: Stable Coding Level of Care Code ED Nursing Associate for Geo [employer] Exam Comprehensive
[2021-01-18] MEDS: morphine 4 mg/mL SDV 1 mL 2 MG IVP (11:49)
[2021-01-18] MEDS: sodium chloride 0.9% 500 ML IV ×2 (11:50→15:00)
[2021-01-18] MEDS: morphine 4 mg/mL SDV 1 mL IVP ×2 (11:50→15:35)
[2021-01-18 12:15] LABS: Basophils % 0.3 %; Lymphocytes # 1.2 10^3/uL (0.8-4.8); Lymphocytes % 7.8 %; Mean Corpuscular HGB Conc 30.4 g/dL (30.0-36.0); Mean Corpuscular Hemoglobin 32.8 pg (28.0-34.0); Mean Corpuscular Volume 107.9 fL (80-94); Mean Platelet Volume 9.6 fL (7.4-10.4); Monocytes # 0.7 10^3/uL (0.2-0.9); Monocytes % 4.7 %; Neutrophils # 12.97 10^3/uL (1.8-7.7); Neutrophils % 86.6 %; Nucleated Red Blood Cells % 0 %; Platelet Count 182 10^3/cmm (130-400); Red Blood Count 1.77 10^6/uL (4.1-5.3); Red Cell Distribution Width 15.7 % (12.1-15.1)
[2021-01-18 12:24] LABS: Hematocrit 19.1 % (42.0-52.0); Hemoglobin 5.8 g/dL (11.7-16.6)
[2021-01-18 12:26] LABS: INR 1.19 (0.8-1.2)
[2021-01-18 12:27] LABS: Partial Thromboplastin Time 29.4 SECONDS (23.9-36.7)
[2021-01-18 12:28] LABS: Add Urine Microscopic? YES; Bilirubin Urine Neg (Negative); Blood Urine 3+ (Negative); Glucose Urine UA Norm (Normal); Ketones Urine Negative (Negative); Leukocyte Esterase Urine Negative (Negative); Nitrate Urine Negative (Negative); Protein Urine Neg (Negative); Urine Appearance Bloody (CLEAR); Urine Color Red (Yellow); Urobilinogen Urine Norm (Negative); pH Urine 7 (5-7)
[2021-01-18 12:29] LABS: Add Urine Culture? No; RBC Urine TOO NUMEROUS TO CNT /hpf (0-2)
[2021-01-18 12:35] LABS: Alanine Aminotransferase 8 U/L (0-41); Albumin Level 2.8 g/dL (3.5-5.2); Alkaline Phosphatase 88 IU/L (40-130); Anion Gap 20.8 (5-19); Aspartate Amino Transferase 10 U/L (0-40); Blood Urea Nitrogen 44 mg/dL (8-23); Calcium 7.2 mg/dL (8.5-10.5); Carbon Dioxide 15 mmol/L (22-29); Chloride 111 mmol/L (98-107); Globulin 1.7 g/dL (1.3-4.6); Glucose 240 mg/dL (65-115); Osmolality Calculated 315 mOsm/kg (285-295); Potassium 3.8 mmol/L (3.5-5.1); Sodium 143 mmol/L (136-145); Total Bilirubin 0.6 mg/dL (0.15-1.2); Total Protein 4.5 g/dL (6.6-8.7)
--- NOTE | 2021-01-18 13:25 | P.HP_ITS ---
Providers/Chief Complaint Primary Care Provider: Dima Mckenzie Chief Complaint: SEVERE ABD & GROIN PAIN, BLEEDING FROM PENIS History of Present Illness Michael Osullivan is a 85 year old male was recently discharge from the hospital after management of clot retention, has history of high-grade neuroendocrine bladder cancer, glomerulonephritis stage IV CKD, A. fib, follows up with Dr. Betancourt status post clot evacuation and fulguration 01/04 ( large amount of clot, from multiple sites of the tumor. All clot was evacuated completion of the procedure and he was placed on continuous bladder irrigation. Postoperatively he gradually cleared. Manual irrigation was utilized as needed along with CBI. He had a lot of problems with bladder spasms but ultimately on 01/10/2021 the Anthony catheter was removed. His urine gradually cleared. There was never any acute bleeding post that just passage of old bloody material. Bladder spasms had co mpletely resolved). Currently awaiting palliative radiotherapy. Followed up with Dr. Betancourt yesterday. He started experiencing will hematuria again this morning, developed urinary retention and presented to the ER. In the ER catheter was placed with minimal return, 26 [place] three-way catheter was passed, CBI initiated, hemoglobin 5.8, 2 units PRBC requested, hypotensive, will be transferred to ICU. Dr. Thompson has seen him in the ER, he is now planning for further fulguration considering his extreme vascularization of bladder, in case of worsening of his symptoms and anemia recommended transfer to a bigger center. At the time of my evaluation he was complaining of pain around his catheter site, urine bag was draining mild red urine, systolic blood pressure 106/57 mmHg, requested ER physician to give 0.4 mg IV Dilaudid. Patient seems very somnolent and lethargic and dehydrated. Review of Systems Const: Reports: chills, body aches and fatigue; Denies: fever(s) Eyes: Denies: change in vision ENMT: Denies: throat pain Card: Denies: chest pain Resp: Denies: dyspnea GI: Reports: abdominal pain : Reports: difficulty urinating, urinary hesitancy, difficulty starting urination, hematuria and genital pain Musc: Reports: muscle cramps Skin/Breast: Denies: rash Neuro: Denies: headache(s) Psych: Denies: anxiety Endo: Denies: polyuria Live/Lymph: Denies: easy bruising All/Imm: Denies: urticaria Medications/Allergies Home Medications Medication Instructions Recorded Confirmed Last Taken Type atorvastatin 20 mg tablet 20 mg PO DAILY 02/09/20 01/18/21 01/18/21 History coenzyme [id number] E 100 mg-100 1 cap PO DAILY 02/09/20 01/18/21 Unknown History unit capsule potassium chloride 10 mEq 10 meq PO DAILY 02/09/20 01/18/21 01/18/21 History capsule,extended release losartan 100 mg tablet 100 mg PO DAILY #90 tab 02/20/20 01/18/21 01/18/21 Rx amlodipine 10 mg tablet 10 mg PO DAILY 03/30/20 01/18/21 01/18/21 History furosemide 40 mg tablet 40 mg PO BID tab 03/30/20 01/18/21 01/18/21 History ferrous sulfate 325 mg PO DAILY 01/04/21 01/18/21 01/18/21 History Allergies Allergy/AdvReac Type Severity Reaction Status Date / Time No Known Allergies Allergy Verified 01/18/21 10:56 PFSH Acute PFSH: Medical History 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 Bradycardia CKD (chronic kidney disease) Diabetes Fatigue Gout Hyperlipidemia Hypertension Leg edema Surgical History H/O: knee surgery History of hernia repair Hx of CABG Family History Denies family history of Diabetes CAD (coronary artery disease) Dementia Chronic kidney disease (CKD) Anesthesia complication Bleeding disorder Family history of premature coronary artery disease Lung disease Cancer Stroke Social History Smoking and tobacco status: former smoker Alcohol intake: never Vitals/I&O/Wt Last Vital Signs Pulse 106 H 01/18/21 13:10 Resp 18 01/18/21 11:50 BP 97/59 01/18/21 13:10 Pulse Ox 97 01/18/21 13:10 01/17/21 01/18/21 01/18/21 22:59 06:59 14:59 Intake Total 500 / 500 Balance 500 / 500 Weight last 48 hrs Weight 72.575 kg Physical Exam Narrative: EXAM NARRATIVE: elderly male who seems to be in distress complaining of genital pain around catheter site Extremely dehydrated appearance S1, S2 sinus tachycardia Abdomen soft nondistended no signs of peritonitis Lower extremities no edema gangrene or ulcer EOMI, PERRLA No neurological deficit Appears to be in distress because of pain Son at the bedside Urine bag draining mild reddish urine Urinary Catheter Management^: 3-way Urethral CBI: Cath Placed During This Visit: yes Urinary Catheter Date of Insertion: 01/18/21 Urinary Catheter Time of Insertion: 11:45 Data : 01/18/21 12:05 01/18/21 12:05 A&P Assessment and plan (1) Gross hematuria: Status: Acute (2) Acute blood loss anemia: Status: Acute (3) Abdominal pain: Status: Acute (4) Acute urinary retention: Status: Acute (5) Bladder outlet obstruction: Status: Acute (6) FABBY (acute kidney injury): Status: Acute Additional A&P Information Will hematuria History of neuroendocrine bladder tumor, high-grade Waiting palliative radiotherapy, follows up with Dr. 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 fib with RVR Heart rate fluctuate between 95-1 01, Not a candidate of anticoagulation Coronary disease status post CABG: No active chest pain Target hemoglobin above 8 DNR/DNI Cardiac diet DVT prophylaxis contraindicated Attestations Medical Necessity Statement*: Anticipating stay to cross more than 2 midnights Time Spent in Patient Care: 16 - 35 minutes Coding Level of Care Code Acute Financial Aid Coordinator for [facility] Fwd Diagnoses Gross hematuria R31.0 Acute blood loss anemia D62 Abdominal pain R10.9 Acute urinary retention R33.8 Bladder outlet obstruction N32.0 FABBY (acute kidney injury) N17.9
[2021-01-18] MEDS: acetaminophen 325 mg Tablet 650 MG PO (13:38)
--- NOTE | 2021-01-18 13:48 | PC.NURSE ---
22Fr cath replaced with 26Fr cath as requested by Dr. Thompson. Pt having intermittent Hypotension, Dr. Tariq is aware. Pt resting quietly right now with eyes closed and sleeping intermittently. When patient is awake he is very restless and c/o 10/10 pain.
--- NOTE | 2021-01-18 14:44 | PC.NURSE ---
Pt reports pain is improving.
[2021-01-18] MEDS: diphenhydrAMINE 25 mg Capsule PO (15:01)
--- NOTE | 2021-01-18 15:58 | P.CONIM_ITS ---
Providers/Reason For Consult Consulting Physician/Specialty*: Urology/Thompson Reason for Consult*: Clot urinary retention, unresectable bladder cancer Requesting Physician: Dr. Castellanos Primary Care Provider: Dima Mckenzie History of Present Illness History of Present Illness Aidan Osullivan is a 85 year old male well-known to me for recent hospitalization with severe life-threatening hematuria related to an unresectable neuroendocrine differentiated bladder cancer. In summary of his care that stay he was taken emergently to the operating room for clot evacuation and attempt at fulguration of actively bleeding bladder tumor. This was only partially successful but after the clot was removed he was placed on a continuous bladder irrigation with large bore Anthony catheter and over time gradually improved and eventually stopped bleeding. Ultimately he successfully passed a voiding trial and was sent home with anticipation of consultation with oncology for initiation of palliative radiation therapy hopefully to control the bleeding. Other options remain systemic therapy are al so being investigated. He saw Dr. Betancourt yesterday. He apparently did well until last night when he started having gross hematuria again. He developed clot retention and presented to the emergency department and extremis for regarding pain from bladder distention. Catheter was placed with minimal return. It was exchanged for a 26 [place] hematuria catheter three-way with some further success but not complete clearance of clots. CBI has been running remarkably well. His hemoglobin was 5.8. He is in the process of being transfused. I reviewed with his son Dima who is active in his father's care the severity of the situation. I do not recommend at this point taken into the operating room because of his instability and severe anemia. Given what I saw in the operating room previously I do not know that he is a candidate for attempt at fulguration again anyway due to the severity of the vascularity and severe hemorrhage that was encountered. Initial focus will be on trying to clear clots with manual irrigation, CBI is capable, and probably more importantly focus on symptomatic control while trying to get him stable. We had discussed at length alternative treatment options including embolization versus extirpative therapy neither which I think is an option currently due to his current status. Both of which would have to be pursued in an outside institution likely [facility]. Last visit he filled out an advanced directive which indicated that he wanted no resuscitative measures. He had expressed this to his son and other family members as well. The advanced directive was scanned into the system and is available. We will make sure that his CODE STATUS reflects that in the computer. His status is critical and overall his prognosis is very poor. I continued our previous conversations with his son iDma who expressed good understanding. He is still hopeful that some definitive type procedure may be available such as urinary diversion or extirpative therapy or both which might provide his father with improved quality of life for his time remaining. Procedure: Catheter irrigation for clot evacuation Utilized 60 cc cath tip syringe, some sterile water, manual irrigation of large amount of clot from the bladder. Catheter was working better. Recommendations: Continue resuscitation, continue CBI and manual irrigation Review of Systems Const: Reports: change in weight, fatigue and malaise Eyes: Denies: change in vision or eye discharge ENMT: Reports: throat pain; Denies: hoarseness Card: Denies: chest pain or palpitations Resp: Denies: dyspnea or wheezing GI: Reports: abdominal pain and other (Abdominal pain secondary to bladder distention primarily) : Reports: difficulty urinating (Urinary retention) and hematuria; Denies: flank pain Musc: Denies: joint redness or joint warmth Skin/Breast: Denies: rash or jaundice Neuro: Denies: confusion or Slurred speech present Psych: Reports: anxiety (Primarily related to the pain) Endo: Denies: flushing Live/Lymph: Denies: tender lymph nodes All/Imm: Denies: urticaria or acute wheezing Meds/Allergies Home Medications and Allergies Home Medications Medication Instructions Recorded Confirmed Last Taken Type atorvastatin 20 mg tablet 20 mg PO DAILY 02/09/20 01/18/21 01/18/21 History coenzyme [id number] E 100 mg-100 1 cap PO DAILY 02/09/20 01/18/21 Unknown History unit capsule potassium chloride 10 mEq 10 meq PO DAILY 02/09/20 01/18/21 01/18/21 History capsule,extended release losartan 100 mg tablet 100 mg PO DAILY #90 tab 02/20/20 01/18/21 01/18/21 Rx amlodipine 10 mg tablet 10 mg PO DAILY 03/30/20 01/18/21 01/18/21 History furosemide 40 mg tablet 40 mg PO BID tab 03/30/20 01/18/21 01/18/21 History ferrous sulfate 325 mg PO DAILY 01/04/21 01/18/21 01/18/21 History Allergies Allergy/AdvReac Type Severity Reaction Status Date / Time No Known Allergies Allergy Verified 01/18/21 10:56 PFSH Acute PFSH: Medical History (Updated 01/18/21 @ 16:17 by Charanjit Thompson MD) 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 Bradycardia CKD (chronic kidney disease) Diabetes Fatigue Gout Hyperlipidemia Hypertension Leg edema Surgical History H/O: knee surgery History of hernia repair Hx of CABG Family History Denies family history of Diabetes CAD (coronary artery disease) Dementia Chronic kidney disease (CKD) Anesthesia complication Bleeding disorder Family history of premature coronary artery disease Lung disease Cancer Stroke Social History Smoking and tobacco status: former smoker Alcohol intake: never Vitals/I&O/Wt Last Vital Signs Temp 96.0 F L 01/18/21 15:24 Pulse 91 01/18/21 15:24 Resp 14 01/18/21 15:35 BP 110/57 01/18/21 15:05 Pulse Ox 91 01/18/21 15:24 01/18/21 01/18/21 01/18/21 06:59 14:59 22:59 Intake Total 500 / 500 0 / 500 Balance 500 / 500 0 / 500 Weight last 48 hrs Weight 160 lb Physical Exam Const: COMMON NORMALS: alert and well nourished GENERAL APPEARANCE: well kempt and well developed ORIENTATION/CONSCIOUSNESS: not confused HENMT: COMMON NORMALS: normocephalic and atraumatic HEAD & SCALP: normocephalic and atraumatic Eye: COMMON NORMALS: conjunctivae normal and no scleral icterus CONJUNCTIVA: Yes conjunctivae normal Neck/C-Spine: COMMON NORMALS: full ROM GENERAL: Yes normal visual inspection Resp: COMMON NORMALS: normal respiratory effort EFFORT & INSPECTION: No labored and No Actively coughing : COMMON NORMALS: Yes scrotum normal BLADDER/KIDNEY EXAM: Yes catheter in place OTHER: Urine is bloody. CBI is functioning. Neuro: SENSORIUM/ORIENTATION: Yes alert Psych: COMMON NORMALS: mental status grossly normal APPEARANCE: Yes grossly normal and Yes well kempt ATTITUDE: Yes calm and Yes engaged Skin: COMMON NORMALS: no rashes or lesions noted and no jaundice GENERAL SKIN EXAM: no rashes or lesions noted Urinary Catheter Management^: 3-way Urethral CBI: Cath Placed During This Visit: yes Urinary Catheter Date of Insertion: 01/18/21 Urinary Catheter Time of Insertion: 11:45 A&P Assessment and plan (1) Bladder cancer: Status: Chronic Qualifiers: Bladder location: overlapping sites Qualified Code(s): C67.8 - Malignant neoplasm of overlapping sites of bladder (2) Clot retention of urine: And adequately managed currently with manual and CBI irrigation. Focusing first on resuscitation with transfusions. Status: Resolved (3) Gross hematuria: Secondary to bladder cancer Status: Acute Coding Level of Care Code Acute Osteologist for [facility] Fwd Diagnoses Bladder cancer C67.8 Bladder location: overlapping sites Clot retention of urine R33.8 Gross hematuria R31.0
[2021-01-18] MEDS: sodium chloride 0.9% 100 mL Bag 50 ML IV (17:00)
[2021-01-18] MEDS: HYDROmorphone 1 mg/mL INJ 1 mL 0.4 MG IVP ×2 (18:09→18:59)
--- NOTE | 2021-01-18 19:47 | P.MISC_ITS ---
Miscellaneous Note Purpose of Documentation: Status update Note: Urology follow-up: Continues to have significant hematuria. Catheter patency became much more difficult to maintain with aggressive manual irrigation with over 6 L of sterile water. CBI became nonfunctional. Patient was experiencing significant pain from bladder distention. I changed out his catheter to a 24 [place] three-way Lance hematuria Couvelaire catheter. Manual irrigation yielded about 35 to 50 cc of old clot. Catheter began to function better. Continued normal saline CBI at a brisk pace. Recommendations: 1. Increase hydromorphone dose to keep comfortable. 2. Manual irrigation regularly to try to clear his many clots as possible 3. Continue CBI to try to up prevent more clots 4. Type and cross 2 more units for transfusion. Follow-up hemoglobin hematocrit 5. Long discussion with the son again regarding the critical status of his father. I am not recommending trip to the operating room at this time due to the previous findings with essentially uncontrolled bleeding despite aggressive fulguration. He is also not stable enough at this point to consider some sort of definitive treatment for quality of life improvement such as extirpative therapy or even transfer for embolization techniques. The son emphasized the importance of controlling his father's pain. Pain medicine has been increased in response to the request and clearly his father's condition with poorly controlled pain. Reviewed respiratory depression, secondary hypertension etc. as potential side effects of the amount of medication it may require to control his pain. He expressed clear understanding as to that point and continue to emphasize importance of pain control given his father's terminal status. Reviewed shifting strategies to accomplish palliative care/hospice care instead of more aggressive measures. More to follow
[2021-01-18 20:29] LABS: Basophils % 0.2 %; Hematocrit 28.4 % (42.0-52.0); Hemoglobin 8.8 g/dL (11.7-16.6); Lymphocytes # 0.5 10^3/uL (0.8-4.8); Lymphocytes % 2.4 %; Mean Corpuscular Hemoglobin 30.8 pg (28.0-34.0); Mean Corpuscular Volume 99.3 fL (80-94); Mean Platelet Volume 10.2 fL (7.4-10.4); Monocytes # 0.8 10^3/uL (0.2-0.9); Monocytes % 4.4 %; Neutrophils # 17.09 10^3/uL (1.8-7.7); Neutrophils % 91.8 %; Nucleated Red Blood Cells % 0 %; Platelet Count 153 10^3/cmm (130-400); Red Blood Count 2.86 10^6/uL (4.1-5.3); Red Cell Distribution Width 17.5 % (12.1-15.1); White Blood Count 18.6 10^3/uL (4.0-10.0)
[2021-01-18] MEDS: sodium chloride 0.9% 1,000 ML 75 ML IV (21:13)
[2021-01-19] VITALS (17 sets, daily range): BP systolic 97–139; BP diastolic 41–68; PULSE 55–84; RESP 14–18; TEMP 36.2–37.1; O2SAT 87–98
[2021-01-19] MEDS: HYDROmorphone 1 mg/mL INJ 1 mL IVP ×3 (04:11→09:04)
--- NOTE | 2021-01-19 06:56 | PM.PN ---
Subjective Subjective: Interval history: Urology follow-up: Overall did well last night. No manual irrigation required. Urine with pain At times requiring increased rate of CBI but no full-blown occlusion as had been prior to catheter change. Requiring less pain medication. No nausea or vomiting. More alert. A.m. labs pending. Abdomen is soft. Bladder is not distended Creatinine on admission was 3.7. Up from his baseline of approximately 3. We will recommend continued CBI for now. Manual irrigation on a regular basis. Transfuse as needed. Will review with the family and patient again the limited options. Midday reevaluation: Manual irrigation x2 with small amount of clot returned. CBI has been turned down significantly and is staying relatively clear. Significant improvement. Receiving another unit of blood. Hemoglobin of 7 this morning Reviewed with son again. We will check with radiation oncology regarding options. Vitals/I&O/Wt Last Vital Signs Temp 98.0 F 01/19/21 03:50 Pulse 64 01/19/21 03:50 Resp 18 01/19/21 04:11 BP 108/65 01/19/21 03:50 Pulse Ox 94 01/19/21 03:50 01/18/21 01/18/21 01/19/21 14:59 22:59 06:59 Intake Total 500 / 500 1200 / 1700 Balance 500 / 500 1200 / 1700 Weight last 48 hrs Weight 160 lb Physical Exam Narrative: EXAM NARRATIVE: General: No acute distress this morning more alert pleasant cooperative Respiration: No labored respiration or wheezing Abdomen: Nondistended. Minimal tenderness. Psychiatric: Somewhat lethargic from pain medication but improved mentation. : Bladder drainage is pink with CBI running at a rapid rate. Skin: No jaundice. Urinary Catheter Management^: 3-way Urethral CBI: Cath Placed During This Visit: yes Reason for Continuing Indwelling Catheter: Acute Urinary Retention or Obstruction Urinary Catheter Date of Insertion: 01/18/21 Urinary Catheter Time of Insertion: 11:45 Data : 01/19/21 06:20 01/19/21 06:20 A&P Assessment and plan (1) Bladder cancer: Large unresectable neuroendocrine differentiation TCCA on the dome. Demonstrate increase over time with treatment. Initially declined radiation therapy due to social issues with his suffering from dementia and is concerned about being away too much. Eventually after severe bleeding during last hospital stay he agreed to consider radiation therapy but had a severe episode of rebleeding leading to this hospitalization. Poor candidate for extirpative therapy. High risk for embolization type therapy requiring contrast for coil placement. Local fulguration also high risk for exacerbation of bleeding. Status: Chronic Qualifiers: Bladder location: overlapping sites Qualified Code(s): C67.8 - Malignant neoplasm of overlapping sites of bladder (2) Clot retention of urine: Manual irrigation required extensively and repetitively to clear clots. CBI is working better now. Severe debilitating pain on admission. Very difficult to control. Better after cleaning out the clots. Family expressed strong desire to focus on palliative pain control given other limited options. Status: Resolved (3) Gross hematuria: Secondary to bladder cancer A.m. labs pending With ongoing bleeding I think you will likely require more transfusion Status: Acute (4) CKD (chronic kidney disease): Status: Acute Attestations Medical Necessity Statement*: Critically ill no option for management as an outpatient Coding Level of Care Code Acute Dipping Machine Operator for [facility] Michelle Diagnoses Bladder cancer C67.8 Bladder location: overlapping sites Clot retention of urine R33.8 Gross hematuria R31.0 CKD (chronic kidney disease) N18.9
[2021-01-19 07:13] LABS: Basophils % 0.1 %; Lymphocytes # 1.5 10^3/uL (0.8-4.8); Lymphocytes % 10.2 %; Mean Corpuscular HGB Conc 31.8 g/dL (30.0-36.0); Mean Corpuscular Hemoglobin 31.7 pg (28.0-34.0); Mean Corpuscular Volume 99.5 fL (80-94); Monocytes % 7.2 %; Neutrophils # 11.64 10^3/uL (1.8-7.7); Neutrophils % 81.7 %; Nucleated Red Blood Cells % 0 %; Platelet Count 126 10^3/cmm (130-400); Red Blood Count 2.21 10^6/uL (4.1-5.3); Red Cell Distribution Width 19.9 % (12.1-15.1); White Blood Count 14.3 10^3/uL (4.0-10.0)
[2021-01-19 08:13] LABS: Anion Gap 16.4 (5-19); Blood Urea Nitrogen 56 mg/dL (8-23); Calcium 7.1 mg/dL (8.5-10.5); Carbon Dioxide 19 mmol/L (22-29); Chloride 112 mmol/L (98-107); Glucose 133 mg/dL (65-115); Osmolality Calculated 311 mOsm/kg (285-295); Potassium 5.4 mmol/L (3.5-5.1); Sodium 142 mmol/L (136-145)
[2021-01-19] MEDS: ferrous sulfate EC 325 mg Tablet PO (09:05)
[2021-01-19] MEDS: sodium chloride 0.9% (100 ml) 100 ML ×2 (11:22→22:43)
--- NOTE | 2021-01-19 13:51 | P.PN_ITS ---
Subjective Subjective: Interval history: Urine color has improved to mild pain, required manual irrigation this morning, noticed hemoglobin 7.0 requested 1 unit PRBC, this will be his third unit assess for volume overload after that before prescribing another unit Urology recommendations reviewed Vitals/I&O/Wt Last Vital Signs Temp 97.7 F 01/19/21 12:16 Pulse 71 01/19/21 12:16 Resp 16 01/19/21 12:16 BP 97/48 01/19/21 12:16 Pulse Ox 87 L 01/19/21 12:16 01/18/21 01/19/21 01/19/21 22:59 06:59 14:59 Intake Total 1200 / 1700 1000 / 1000 Balance 1200 / 1700 1000 / 1000 Weight last 48 hrs Weight 72.575 kg Physical Exam Narrative: EXAM NARRATIVE: Patient was in distress secondary to pain during manual irrigation when I was in the room Granddaughter at the bedside Mild pink urine color Hypotensive with anemia Pale complexion Patient awake able to respond to my questions however in distress because of pain S1-S2, tachycardia Soft abdomen without active signs of peritonitis EOMI, PERRLA Patient is frail-appearing and agitated in distress Urinary Catheter Management^: 3-way Urethral CBI: Cath Placed During This Visit: yes Reason for Continuing Indwelling Catheter: Acute Urinary Retention or Obstruction Urinary Catheter Date of Insertion: 01/18/21 Urinary Catheter Time of Insertion: 11:45 Data : 01/19/21 06:20 01/19/21 06:20 A&P Assessment and plan (1) Gross hematuria: Status: Acute (2) Acute blood loss anemia: Status: Acute (3) Abdominal pain: Status: Acute (4) Bladder outlet obstruction: Status: Acute (5) FABBY (acute kidney injury): Status: Acute (6) Fatigue: Status: Acute Qualifiers: Fatigue type: unspecified Qualified Code(s): R53.83 - Other fatigue Additional A&P Information Gross hematuria Manual irrigation x2 this morning, urine color seems to be slightly improving with CBI Hemoglobin 7 requested another unit of PRBC Hypotensive due to blood loss anemia if his blood pressure is not improving we will transfer him to ICU for use of vasopressors for short period of time Urology recommendations reviewed Patient agreeable for palliative radiotherapy FABBY on chronic kidney disease stage IV : Worsening Secondary to anemia, hypertension and bladder outlet obstruction Monitor creatinine for now with urine output History of membranous glomerular nephritis, high risk for progression of kidney disease to stage V Considering his age and frailty I do not believe he will be a good candidate for long-term hemodialysis A. fib without RVR Not a candidate for anticoagulation, holding AV ashvin blocking agent No active chest pain Goal hemoglobin above 8 DNR/DNI Cardiac diet DVT prophylaxis SCD Attestations Medical Necessity Statement*: Continue medical management for above-mentioned multiple acute issues Time Spent in Patient Care: less than 15 minutes Coding Level of Care Code Acute Telephone Answering Service Operator for [facility]g Fwd Diagnoses Gross hematuria R31.0 Acute blood loss anemia D62 Abdominal pain R10.9 Bladder outlet obstruction N32.0 FABBY (acute kidney injury) N17.9 Fatigue R53.83 Fatigue type: unspecified
[2021-01-19] MEDS: sodium chloride 0.9% 1,000 ML 75 ML IV (14:01)
[2021-01-19] MEDS: midodrine 5 mg TABLET 10 MG PO ×2 (15:08→21:19)
[2021-01-19] MEDS: sodium polystyrene sulfonate 15 gm/60 mL Btl PO (15:08)
[2021-01-19 15:48] LABS: Hematocrit 22.8 % (42.0-52.0); Hemoglobin 7.5 g/dL (11.7-16.6)
[2021-01-19] MEDS: calcium gluconate 0.1 gm/mL 10% SDV 10mL 1 GM IVP (16:03)
--- NOTE | 2021-01-19 22:43 | PC.NURSE ---
1 unit PRBCs, unit #[id number] infusing at 50mls/hr. VSS.
[2021-01-20] VITALS (20 sets, daily range): BP systolic 112–148; BP diastolic 45–70; PULSE 56–84; RESP 16–20; TEMP 36.6–37.3; O2SAT 90–98
[2021-01-20] MEDS: HYDROmorphone 1 mg/mL INJ 1 mL 0.5 MG IVP ×9 (03:27→21:17)
[2021-01-20 05:51] LABS: Basophils % 0.2 %; Eosinophils % 0.2 %; Hematocrit 25.3 % (42.0-52.0); Lymphocytes % 7.1 %; Mean Corpuscular HGB Conc 31.6 g/dL (30.0-36.0); Mean Corpuscular Hemoglobin 29.6 pg (28.0-34.0); Mean Corpuscular Volume 93.7 fL (80-94); Monocytes # 1.1 10^3/uL (0.2-0.9); Monocytes % 7.6 %; Neutrophils # 11.85 10^3/uL (1.8-7.7); Nucleated Red Blood Cells % 0 %; Platelet Count 139 10^3/cmm (130-400); Red Cell Distribution Width 19.2 % (12.1-15.1); White Blood Count 14.1 10^3/uL (4.0-10.0)
--- NOTE | 2021-01-20 05:58 | PC.NURSE ---
CBI has been running at a steady stream all night, output had a few very tiny clots at shift change. Output has remained clear of clots all night clerk auditor. I have been unable to titrate CBI down d/t his output getting darker red with titration. Patient mostly slept from beginning of shift until around 0130. He has received 1 unit PRBCs & 1 unit of Platelets. He took his O2 off & his Sats have remained in the low to mid 90s. He seems slow to answer at times & when I try to titrate or reposition him, he grabs my hands & says wait, wait wait . He does know his name & birthdate, told me the year & date & that our presidents name was Imer Rosales. He seems a little confused this morning. I tried to irrigate his catheter this morning instilling 60 mls & returning the same with one nickel sized clot noted. Was unable to irrigate any further d/t patient grabbed both my hands & wouldn't let me go. I had to yell for help & Martha Melton RN assisted in freeing me from his drama critic. At 0600, pt had 35,000 CBI fluid in with 36,800 out. He has denied pain most of the night, however, pt looked like he might be having pain d/t grimacing and holding his left flank area a couple times. He has received Dilaudid 0.5 mg IVP x 2 during this night clerk auditor.
[2021-01-20 06:07] LABS: Blood Urea Nitrogen 59 mg/dL (8-23); Calcium 7.1 mg/dL (8.5-10.5); Carbon Dioxide 19 mmol/L (22-29); Chloride 111 mmol/L (98-107); Glucose 108 mg/dL (65-115); Osmolality Calculated 309 mOsm/kg (285-295); Sodium 141 mmol/L (136-145)
[2021-01-20] MEDS: sodium chloride 0.9% 1,000 ML 75 ML IV ×2 (08:12→20:39)
[2021-01-20] MEDS: sodium bicarbonate 650 mg Tablet PO ×2 (08:13→21:21)
[2021-01-20] MEDS: ferrous sulfate EC 325 mg Tablet PO (08:13)
[2021-01-20] MEDS: sennosides-docusate Tablet 1 TAB PO (08:13)
[2021-01-20] MEDS: midodrine 5 mg TABLET 10 MG PO ×2 (08:13→21:21)
--- NOTE | 2021-01-20 11:02 | PC.NURSE ---
CBI INTAKE AND OUTPUT AT THIS TIME PATIENT HAS HAD A TOTAL OF 12,000ML OF CBI INTAKE. HE HAS HAD A TOTAL OF 12,700 OUTPUT. URINE IS PINK TO CLEAR. NO CLOTS NOTED AT THIS TIME. CBI RUNNING VERY QUICKLY. PATIENT HAS BEEN EXPERIENCING SPASMS. THIS NURSE HAS ADMINISTERED DILAUDID 3 TIMES THIS MORNING FOR PAIN CONTROL.
--- NOTE | 2021-01-20 16:12 | PC.NURSE ---
THIS NURSE PROCEEDED TO TITRATE DOWN MANUAL IRRIGATION. I NOTICED QUITE A BIT OF BLOOD AT THE END OF THE CATHETER. THIS NURSE PROCEEDED WITH MANUAL IRRIGATION AND EXTRACTED SEVERAL LARGE CLOTS. CBI NOW RUNNING WIDE OPEN AND DRAINAGE IS CLEAR, NO CLOTS AT THIS TIME. THIS NURSE WILL PROCEED TO TITRATE DOWN CBI IF POSSIBLE. PAIN MEDICATION ADMINISTERED.
--- NOTE | 2021-01-20 17:17 | CTR_ITS ---
PROCEDURE INFORMATION: Exam: CT Abdomen And Pelvis Without Contrast Exam date and time: 01/20/2021 5:17 PM Age: 85 years old Clinical indication: Other: Bladder spasms; Abdominal pain; Prior surgery; Surgery type: Hernia x 2; Patient HX: Bladder CA; Additional info: Worsening uday hematuria TECHNIQUE: Imaging protocol: Computed tomography of the abdomen and pelvis without contrast. Radiation optimization: All CT scans at this facility use at least one of these dose optimization techniques: automated exposure control; mA and/or kV adjustment per patient size (includes targeted exams where dose is matched to clinical indication); or iterative reconstruction. COMPARISON: CT abdomen pelvis wo con [id number] 10/29/2020 11:17 AM RADIATION DOSE METRICS: Total DLP (mGy-cm): 935.24 FINDINGS: Mediastinal space: Large hiatal hernia. Liver: Normal. No mass. Gallbladder and bile ducts: Cholelithiasis. No thickening of gallbladder wall. Gallbladder is moderately distended. Negative for biliary system dilation. Pancreas: Normal. No ductal dilation. Spleen: Normal. No splenomegaly. Adrenal glands: Normal. No mass. Kidneys and ureters: Symmetric cortical atrophy of the kidneys. Symmetric moderate severity bilateral hydroureteronephrosis which is new from prior. Stomach and bowel: Unremarkable. No obstruction. No mucosal thickening. Appendix: No evidence of appendicitis. Intraperitoneal space: Unremarkable. No free air. No significant fluid collection. Vasculature: Diffuse atherosclerosis. Negative for aneurysm. Lymph nodes: Unremarkable. No enlarged lymph nodes. Urinary bladder: Nodular soft tissue mass changes of the posterior bladder margin increased in volume from comparison. Anthony catheter within bladder. Bladder lumen decompressed. Right posterior bladder diverticulum. Reproductive: Significant prostate gland enlargement. Bones/joints: Unremarkable. No acute fracture. Soft tissues: Mild body wall anasarca. CT/CT abdomen pelvis wo con [id number] IMPRESSION: 1. New finding of significant bilateral hydroureteronephrosis. 2. Increased volume of the bulky nodular posterior bladder mass. Distal ureters are likely obstructed. Radiation Dose CTDIVOL = (mGy): DLP = 935.24 (mGy-cm)
--- NOTE | 2021-01-20 17:20 | P.PN_ITS ---
Subjective Subjective: Interval history: CBI has been slowed down, urine has become mild pain, hemoglobin and blood pressure stable patient has been pulling his Anthony catheter quite frequently with concern of bladder spasm, not a candidate to get Pyridium because of worsening creatinine Requested CT abdomen pelvis to rule out a postobstructive etiology Status post 4 units of PRBC and 1 unit of platelets Urine color improving We will consult nephro if creatinine keeps getting worse, added bicarb tablets for his acidosis, hyperkalemia treated yesterday today 5.0 Vitals/I&O/Wt Last Vital Signs Temp 98.3 F 01/20/21 16:00 Pulse 68 01/20/21 16:00 Resp 18 01/20/21 17:16 BP 112/55 01/20/21 16:00 Pulse Ox 94 01/20/21 16:00 01/20/21 01/20/21 01/20/21 06:59 14:59 22:59 Intake Total 1658 / 3108 120 / 120 Output Total 1800 / 1800 Balance -142 / 1308 120 / 120 Physical Exam Narrative: EXAM NARRATIVE: Patient seems lethargic and fatigued Complaining of agitation around catheter insertion site Anthony bag with mild pink urine, did not require manual irrigation today S1, S2 sinus rhythm Soft abdomen Lower extremity no edema Patient looks dehydrated No acute respiratory distress No focal deficit Urinary Catheter Management^: 3-way Urethral CBI: Cath Placed During This Visit: yes Reason for Continuing Indwelling Catheter: Chronic Indwelling Urinary Catheter on Admission Urinary Catheter Date of Insertion: 01/18/21 Urinary Catheter Time of Insertion: 11:45 Data : 01/20/21 05:23 01/20/21 05:23 A&P Assessment and plan (1) Gross hematuria: Status: Acute (2) Acute blood loss anemia: Status: Acute (3) Abdominal pain: Status: Acute (4) Bladder cancer: Status: Chronic Qualifiers: Bladder location: overlapping sites Qualified Code(s): C67.8 - Malignant neoplasm of overlapping sites of bladder (5) Bladder outlet obstruction: Status: Acute (6) FABBY (acute kidney injury): Status: Acute Additional A&P Information Gross hematuria Status post 4 units PRBC 1 unit of platelets hemoglobin stable at 8 blood pressure stable afebrile urine color has improved, slow rate of CBI For bladder spasm not a candidate of Pyridium will add oxybutynin Acute on chronic kidney disease stage IV Worsening creatinine, added bicarb tablets, this worsening of creatinine seems to be secondary to hypotension and anemia, with underlying membranous glomerular nephritis Do not believe he would be a good candidate for hemodialysis No acute indication for dialysis, hyperkalemia treated A. fib without RVR Holding AV ashvin blocking agents anticoagulation contraindicated Hemoglobin at goal DNR/DNI Cardiac diet SCDs Attestations Medical Necessity Statement*: Continue medical management for above mentioned reasons Time Spent in Patient Care: less than 15 minutes Coding Level of Care Code Acute Biofuels Plant Superintendent for Chg Fwd Diagnoses Gross hematuria R31.0 Acute blood loss anemia D62 Abdominal pain R10.9 Bladder cancer C67.8 Bladder location: overlapping sites Bladder outlet obstruction N32.0 FABBY (acute kidney injury) N17.9
[2021-01-20] MEDS: oxybutynin 5 mg Tablet PO (17:55)
--- NOTE | 2021-01-20 19:02 | PC.NURSE ---
SHIFT SUMMARY PATIENT WAS RESTLESS THIS AM. THIS NURSE ADMINISTERED DILAUDID MULTIPLE TIMES. PATIENT RESTED THIS AFTERNOON FOR AWHILE. HE IS NOT TAKING IN MUCH ORALLY, BUT WAS ABLE TO DRINK AROUND 1/2 AN ENSURE THIS EVENING. THIS NURSE ONLY HAD TO MANUALLY IRRIGATE PATIENT'S BLADDER ONE TIME TODAY RECEIVING SEVERAL CLOTS. CBI HAS BEEN TITRATED MULTIPLE TIMES UP AND DOWN. CURRENTLY RESTING IN BED RUNNING AT A STEADY DRIP. INTAKE CONSISTS OF 24,000ml. OUTPUT WAS A TOTAL OF 30,170ml.
--- NOTE | 2021-01-20 19:11 | PM.PN ---
Subjective Subjective: Interval history: Urology follow-up Has consumed huge amount of continuous bladder irrigation just to keep his catheter functioning. Manual irrigation later this afternoon cleared a lot of clots and the CBI has been running clear since that time at a much lower rate. Has developed us significant amount of more pain, decreased cognition, and agitation. Has been requiring a lot of pain medication. Renal function is clearly declining. CT scan without contrast this afternoon showed that the mass has significantly increased in size and appears to be obstructing both ureteral orifices with new onset of bilateral hydronephrosis since his last CT scan in October. Is probably 50 to 75% increase in the size of the mass. It appears that his acute risk from exsanguination has diminished but the risk of progression relating to progression of the bladder cancer. With new onset hydronephrosis prognosis has significantly declined. I do not think he is a candidate for hemodialysis and would absolutely not recommend percutaneous nephrostomy tubes. Antegrade stent placement would be impossible I spent about an hour today talking to his son about these new findings and the significance. He has been holding out for the hope that something could be done to stop the bleeding but these new findings indicate that even though the bleeding is still likely to recur that the overall prognosis has become more critical in a much more rapid pace because of the obstructive uropathy. I encouraged him to consider hospice, palliative care, halfway facility placement potentially if that is a possibility where his with Alzheimer's is now going to be as of tomorrow Symptomatic control still very important as well but will probably compromise his cognitive status significantly. He appears to be leaning in that direction and he will speak with his siblings about making more definitive decisions. Vitals/I&O/Wt Last Vital Signs Temp 98.3 F 01/20/21 16:00 Pulse 68 01/20/21 16:00 Resp 18 01/20/21 18:22 BP 112/55 01/20/21 16:00 Pulse Ox 94 01/20/21 16:00 01/20/21 01/20/21 01/20/21 06:59 14:59 22:59 Intake Total 1658 / 3108 120 / 120 Output Total 1800 / 1800 Balance -142 / 1308 120 / 120 Physical Exam Narrative: EXAM NARRATIVE: Mostly same day did and sleeping. Does awake but appears to be in a lot of discomfort when he does. Abdomen seems to be tender. No rigidity or rebound. No labored respiration. Urinary Catheter Management^: 3-way Urethral CBI: Cath Placed During This Visit: yes Reason for Continuing Indwelling Catheter: Acute Urinary Retention or Obstruction Urinary Catheter Date of Insertion: 01/18/21 Urinary Catheter Time of Insertion: 11:45 Data : 01/20/21 05:23 01/20/21 05:23 A&P Assessment and plan (1) Bladder cancer: Continues to significantly progress has been per CT scan findings today. Substantially larger than it was just 2 months ago. Appears to be now involving the trigone with bilateral distal ureteral obstruction. No realistic option of significant turning around of this progression. I recommended consideration of palliative or hospice care given the worsening of his underlying disease Status: Chronic Qualifiers: Bladder location: overlapping sites Qualified Code(s): C67.8 - Malignant neoplasm of overlapping sites of bladder (2) Bilateral hydronephrosis: With progressing renal failure Status: Acute (3) Obstructive uropathy: Status: Acute (4) CKD (chronic kidney disease): Status: Acute (5) Bladder outlet obstruction: Clot retention at onset of this Status: Acute (6) Abdominal pain: admission requiring large amounts of narcotics for some semblance of control Status: Acute Attestations Medical Necessity Statement*: See above, see attending Coding Level of Care Code Acute Medical Pathologist for Geo Martinez Diagnoses Bladder cancer C67.8 Bladder location: overlapping sites Bilateral hydronephrosis N13.30 Obstructive uropathy N13.9 CKD (chronic kidney disease) N18.9 Bladder outlet obstruction N32.0 Abdominal pain R10.9 Time Spent (min) 65 Comment All counseling
--- NOTE | 2021-01-20 19:51 | PC.NURSE ---
PM NOTE PT RESTING WITH RESP EVEN AND UNLABORED - PT DOES NOT AWAKEN TO ASSESSMENT - CBI CONTINUES TO RUN AT A SLOW DRIP WITH CLEAR TO YELLOW URINE NOTED - SON REMAINS AT SIDE - WILL CONTINUE TO MONITOR THROUGHOUT SHIFT
--- NOTE | 2021-01-20 20:21 | PC.NURSE ---
CBI CBI INCREASED DUE TO PINK TINGE NOTED IN URINE - PT DOES NOT AWAKEN TO VITAL SIGNS
--- NOTE | 2021-01-20 20:55 | PC.NURSE ---
CBI NOTED URINE TO BE PALE YELLOW AT PRESENT TIME - CBI SLOWED - SON REMAINS AT SIDE - GENNY CONTINUE TO MONITOR
--- NOTE | 2021-01-20 21:50 | PC.NURSE ---
2119 PT AWAKENS - MUCH COAXING TO TAKE PM MEDS BY THIS NURSE AND SON WHO REMAINS AT SIDE - PT CONTINUES TO GRAB THIS NURSE WRIST STATING I JUST WANT TO REST - MEDS SWALLOWED - IVP DILAUDID GIVEN PER SONS REQUEST AND PT NOTED TO BE SLIGHTLY RESTLESS - CBI REMAINS WITH SLOW, CONSTANT DRIP AND PALE YELLOW URINE NOTED -
[2021-01-21] VITALS (9 sets, daily range): BP systolic 133–153; BP diastolic 49–68; PULSE 51–66; RESP 16–24; TEMP 36.3–37.1; O2SAT 91–96
[2021-01-21] MEDS: HYDROmorphone 1 mg/mL INJ 1 mL 0.5 MG IVP ×3 (00:07→14:32)
--- NOTE | 2021-01-21 00:24 | PC.NURSE ---
MID SHIFT NOTE URINE REMAINS CLEAR YELLOW - CBI AGAIN SLOWED - PT NOTED TO BE SLIGHTLY AGITATED - CALLING OUT [facility] REPEATEDLY - WHEN QUESTIONED PT STATES YES TO PAIN - GRABS NURSES HANDS AND REFUSES TO LET GO - REORIENTATION ATTEMPTED - DILAUDID GIVEN IVP FOR PAIN
[2021-01-21] MEDS: LORazepam 2 mg/mL INJ 1 mL 0.5 MG IVP (01:17)
--- NOTE | 2021-01-21 01:20 | PC.NURSE ---
AGITATION URINE AGAIN NOTED TO BE DARK RED - CBI INCREASED - PT NOTED TO HAVE INCREASED RESTLESS AND AGITATION - LORAZEPAM GIVEN IVP PER THIS NURSE
[2021-01-21 03:32] LABS: Basophils % 0.2 %; Eosinophils % 0.2 %; Hematocrit 25.8 % (42.0-52.0); Hemoglobin 7.7 g/dL (11.7-16.6); Lymphocytes % 7.6 %; Mean Corpuscular HGB Conc 29.8 g/dL (30.0-36.0); Mean Corpuscular Hemoglobin 29.7 pg (28.0-34.0); Mean Corpuscular Volume 99.6 fL (80-94); Mean Platelet Volume 9.5 fL (7.4-10.4); Monocytes # 0.8 10^3/uL (0.2-0.9); Monocytes % 5.6 %; Neutrophils # 11.51 10^3/uL (1.8-7.7); Neutrophils % 85.2 %; Nucleated Red Blood Cells % 0.2 %; Platelet Count 125 10^3/cmm (130-400); Red Blood Count 2.59 10^6/uL (4.1-5.3); Red Cell Distribution Width 19.3 % (12.1-15.1); White Blood Count 13.5 10^3/uL (4.0-10.0)
[2021-01-21 03:54] LABS: Anion Gap 18.5 (5-19); Blood Urea Nitrogen 64 mg/dL (8-23); Calcium 6.8 mg/dL (8.5-10.5); Carbon Dioxide 16 mmol/L (22-29); Chloride 115 mmol/L (98-107); Glucose 94 mg/dL (65-115); Osmolality Calculated 318 mOsm/kg (285-295); Potassium 4.5 mmol/L (3.5-5.1); Sodium 145 mmol/L (136-145)
--- NOTE | 2021-01-21 04:41 | PC.NURSE ---
Addendum entered by Analia May RN 01/21/21 04:47: PT HAS NOT REQUIRED MANUAL IRRIGATION Original Note: END OF SHIFT SUMMARY PT HAS REQUIRED IV DILAUDID X2 AND IV ATIVAN X1 THROUGHOUT THESE SHIFT FOR PAIN/AGITATION - CBI RATE HAS BEEN ADJUSTED MULTIPLE TIMES THROUGHOUT SHIFT WITH URINE VARYING FROM DARK RED AT TIMES TO PALE YELLOW - MOSTLY REMAINED YELLOW - NO CLOTS NOTED THROUGHOUT SHIFT - GOOD INTAKE/OUTPUT NOTED - IV REMAINS PATENT VIA PUMP - PT HAS NOT BEEN ABLE TO STATE PLACE OR SITUATION FOR ORIENTATION THROUGHOUT SHIFT - BED CHECK ON - VSS - WILL MONITOR
--- NOTE | 2021-01-21 05:05 | PC.NURSE ---
END OF SHIFT SUMMARY URINE CURRENTLY DE RED - MANUAL IRRIGATION DONE FOR 2ND TIME THIS SHIFT - 60ML OF NS INSTILLED INTO BLADDER PER 60ML CATH TIP SYRINGE - AN ADDITIONAL 60ML OF NS IRRIGATED - SMALL RED CLOTS NOTED - TOTAL IRRIGATION OF 150ML WITH SEVERAL SMALL CLOTS RETURNED - PT JOSE WELL - URINE RETURNED TO LIGHT PINK - PAIN HAS BEEN CONTROLLED THROUGHOUT SHIFT WITH HYDROCODONE -PT DOES COMPLAIN OF MINIMAL SLEEP THROUGH THE NIGHT - VS HAVE REMAINED STABLE AND IV TO RIGHT FA PATENT VIA PUMP - WILL CONTINUE TO MONITOR
[2021-01-21] MEDS: sennosides-docusate Tablet 1 TAB PO (08:50)
[2021-01-21] MEDS: oxybutynin 5 mg Tablet PO ×2 (08:51→18:06)
[2021-01-21] MEDS: midodrine 5 mg TABLET 10 MG PO ×3 (08:51→21:17)
[2021-01-21] MEDS: ferrous sulfate EC 325 mg Tablet PO (08:51)
[2021-01-21] MEDS: sodium bicarbonate 650 mg Tablet PO ×3 (08:51→21:17)
[2021-01-21] MEDS: sodium chloride 0.9% 1,000 ML 75 ML IV (09:22)
--- NOTE | 2021-01-21 12:14 | PC.CHAP ---
Pastoral Care Encounter/Spiritual Assessment Type of Contact [] Declined marine electronics repairer visit [] Patient/Family/Request visit [] Outpatient visit [] Follow-up visit [] Physician referral [] Code/Alert [] Routine visit [] Staff referral [] Actively dying [] Patient sleeping [] Family support [] [] Out of room [] Palliative care [] [] Receiving care in room [] Pre-surgical visit [] Trauma [] Long length of stay [] ICU visit [xx] Other: Patient in Isolation Relational/Emotional Strength [] Patient feels connected with others/family/visitors/staff [] Distress [] Loneliness/isolation [] Abandonment Spirituality of Patient [] Person of Meenakshi [] Attends Hoahaoism of their Meenakshi [] Believes in Prayer [] Reads Bible or Spiritism materials [] There are Spiritual issues to be addressed Snailer Interventions [] Prayer [] Active listening [] Non-anxious presence [] Spiritual/emotional support [] Crisis/trauma care [] Spiritual counseling [] Bereavement support [] Provided bereavement packet [] Provided Bible/devotional materials [] Provided toy/stuffed animal, coloring book to patient or family member [] Provided Communion [] Anointing/[place] [] Salvation [] Completed spiritual assessment [] Other: Impact on Illness or Injury [] Angry [] Fearful [] Anxious [] Often cries [] Exhaustion [] Unable to work [] Unable to attend congregational [] Unable to walk/stand [] Unable to read [] Unable to drive [] Unable to eat/drink [] Unable to sleep [] Unable to be with family [] Patient intubated [] Other: Summary Time spent with patient
[2021-01-21] MEDS: sodium bicarbonate 150 MEQ in dextrose 5% 1,000 ML 100 MEQ IV (14:17)
--- NOTE | 2021-01-21 15:20 | PC.SOCIAL ---
IMM UPDATE Gave patient IMM update, provided copy of pg 2. Verbalized understanding. Initialed, dated, timed and placed in chart.
--- NOTE | 2021-01-21 15:37 | PM.PN ---
Subjective Subjective: Interval history: Patient was examined this morning, son was also at the bedside Mr. Mckee was complaining of pain and was in distress, urine color dark yellow no signs of bleeding Was saturating well on room air I did discuss CT abdomen pelvis findings with the patient and son was at the bedside stated that they have made a decision to pursue hospice care at the halfway Son requested to talk with a social underwriting support manager manager Ms Malloy updated Vitals/I&O/Wt Last Vital Signs Temp 98.2 F 01/21/21 11:42 Pulse 59 L 01/21/21 11:42 Resp 16 01/21/21 14:32 BP 152/61 01/21/21 11:42 Pulse Ox 96 01/21/21 11:42 01/21/21 01/21/21 01/21/21 06:59 14:59 22:59 Intake Total 1843.75 / 1843.75 Output Total 1050 / 1050 2450 / 2450 Balance -1050 / 53.75 -606.25 / -606.25 Physical Exam Narrative: EXAM NARRATIVE: early male who was reclined in his bed complaining of pain in his genital area Saturating well on room air He was in distress and grabbed nurses hand pretty firmly Seem to be in distress Urine color yellow concentrated No active signs of peritonitis EOMI, PERRLA Lethargic and fatigued However able to make eye contact and communicate no active strokelike symptom Urinary Catheter Management^: 3-way Urethral CBI: Cath Placed During This Visit: yes Reason for Continuing Indwelling Catheter: Other Urinary Catheter Date of Insertion: 01/18/21 Urinary Catheter Time of Insertion: 11:45 Data : 01/21/21 03:05 01/21/21 03:05 A&P Assessment and plan (1) Obstructive uropathy: Status: Acute (2) Bilateral hydronephrosis: Status: Acute (3) Gross hematuria: Status: Acute (4) Acute blood loss anemia: Status: Acute (5) Abdominal pain: Status: Acute (6) Acute urinary retention: Status: Acute (7) Bladder cancer: Status: Chronic Qualifiers: Bladder location: overlapping sites Qualified Code(s): C67.8 - Malignant neoplasm of overlapping sites of bladder (8) Bladder outlet obstruction: Status: Acute (9) FABBY (acute kidney injury): Status: Acute Additional A&P Information Bladder cancer with obstructive uropathy Size progression noted on CT abdomen pelvis yesterday with distal ureteral obstruction which would explain his worsening creatinine Appreciate nephro recommendations Today patient and his son decided to pursue hospice care at the halfway manager video games updated His urine color has improved to dark yellow no signs of bleeding however underlying cancer and bilateral hydronephrosis has not been improved he is at risk of worsening kidney function with high risk of mortality morbidity including demise Initiate hospice care DNR/DNI Cardiac diet Attestations Medical Necessity Statement*: Initiated hospice care today Time Spent in Patient Care: 16 - 35 minutes Coding Level of Care Code Acute Basket Person for Chg Fwd Diagnoses Obstructive uropathy N13.9 Bilateral hydronephrosis N13.30 Gross hematuria R31.0 Acute blood loss anemia D62 Abdominal pain R10.9 Acute urinary retention R33.8 Bladder cancer C67.8 Bladder location: overlapping sites Bladder outlet obstruction N32.0 FABBY (acute kidney injury) N17.9
--- NOTE | 2021-01-21 15:40 | PM.CONSULT ---
Providers/Reason For Consult Consulting Physician/Specialty*: Nephro Reason for Consult*: Eval for Renal Failure Attending Physician: Soniya Castellanos MD Primary Care Provider: Dima Mckenzie History of Present Illness History of Present Illness Thank you for consultation, today had the pleasure of reviewing this 85-year-old gentleman for evaluation of renal failure. He was slightly conversant during our interview, however, subsequently simply stopped discussing his care with me. He presented on 01/18 with will hematuria, urinary retention. 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 On 01/10 the Anthony catheter was removed and the urine cleared up. Following hospitalization he has had his Anthony replaced and CBI initiated. His urine is now clearing up. He has received 2 units of packed red blood cells, was noted to be hypotensive. Over the last few days he has received intravenous IV hydration, his blood pressure is stabilized, his urine output appears to have improved as well. He still remains on CBI as well as manual irrigation. Follow-up CT scan demonstrates new onset bilateral hydronephrosis with the bladder mass significantly increased in size causing the obstruction. He is in minimal discomfort on my interview today. No obvious uremic symptoms. Globally no anasarca. Breathing comfortably on room air. He has a known history of membranous glomerulonephritis. The details of this history is unclear, he cannot describe this to me. He has had an elevated creatinine, in the mid 2 range for some time. On admission his serum creatinine was 3.7, increasing to 5.4 yesterday, slightly improved to 5.3 today. Review of Systems General: Reports: ROS unobtainable due to mental status Meds/Allergies Home Medications and Allergies Home Medications Medication Instructions Recorded Confirmed Last Taken Type atorvastatin 20 mg tablet 20 mg PO DAILY 02/09/20 01/18/21 01/18/21 History coenzyme [id number] E 100 mg-100 1 cap PO DAILY 02/09/20 01/18/21 Unknown History unit capsule potassium chloride 10 mEq 10 meq PO DAILY 02/09/20 01/18/21 01/18/21 History capsule,extended release losartan 100 mg tablet 100 mg PO DAILY #90 tab 02/20/20 01/18/21 01/18/21 Rx amlodipine 10 mg tablet 10 mg PO DAILY 03/30/20 01/18/21 01/18/21 History furosemide 40 mg tablet 40 mg PO BID tab 03/30/20 01/18/21 01/18/21 History ferrous sulfate 325 mg PO DAILY 01/04/21 01/18/21 01/18/21 History Allergies Allergy/AdvReac Type Severity Reaction Status Date / Time No Known Allergies Allergy Verified 01/18/21 10:56 Current Medications Current Medications Generic Name Dose Route Start Last Admin Trade Name Wisam PRN Reason Stop Dose Admin Ferrous Sulfate 325 mg 01/19/21 09:00 01/21/21 08:51 Ferrous Sulfate Ec 325 Mg Tablet PO 325 mg DAILY FARIDA Administration Hydromorphone HCl 0.5 mg 01/19/21 14:00 01/21/21 14:32 Hydromorphone 1 Mg/Ml Inj 1 Ml IVP 0.5 mg Q1H PRN Administration SEVERE PAIN Sodium Bicarbonate 150 meq/ 1,150 mls @ 100 mls/hr 01/21/21 13:00 01/21/21 14:17 Dextrose IV 100 mls/hr .[id number] FARIDA Administration Lorazepam 0.5 mg 01/20/21 17:14 01/21/21 01:17 Lorazepam 2 Mg/Ml Inj 1 Ml IVP 0.5 mg Q12H PRN Administration ANXIETY Midodrine 10 mg 01/19/21 15:00 01/21/21 14:17 Midodrine 5 Mg Tablet PO 10 mg TID FARIDA Administration Oxybutynin Chloride 5 mg 01/20/21 18:00 01/21/21 08:51 Oxybutynin 5 Mg Tablet PO 5 mg BID FARIDA Administration Senna/Docusate Sodium 1 tab 01/20/21 09:00 01/21/21 08:50 Sennosides-Docusate Tablet PO 1 tab DAILY FARIDA Administration Sodium Bicarbonate 650 mg 01/20/21 21:00 01/21/21 14:17 Sodium Bicarbonate 650 Mg Tablet PO 650 mg TID FARIDA Administration PFSH Acute PFSH: Medical History (Updated 01/20/21 @ 19:20 by Charanjit Thompson MD) 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 Bradycardia CKD (chronic kidney disease) Diabetes Fatigue Gout Hyperlipidemia Hypertension Leg edema Surgical History H/O: knee surgery History of hernia repair Hx of CABG Family History Denies family history of Diabetes CAD (coronary artery disease) Dementia Chronic kidney disease (CKD) Anesthesia complication Bleeding disorder Family history of premature coronary artery disease Lung disease Cancer Stroke Social History Smoking and tobacco status: former smoker Alcohol intake: never Vitals/I&O/Wt Last Vital Signs Temp 98.2 F 01/21/21 11:42 Pulse 59 L 01/21/21 11:42 Resp 16 01/21/21 14:32 BP 152/61 01/21/21 11:42 Pulse Ox 96 01/21/21 11:42 01/21/21 01/21/21 01/21/21 06:59 14:59 22:59 Intake Total 1843.75 / 1843.75 Output Total 1050 / 1050 2450 / 2450 Balance -1050 / 53.75 -606.25 / -606.25 Physical Exam Narrative: EXAM NARRATIVE: Constitutional: Awake, comfortable HEENT: Wet mucosa, no jvp, non icteric Lungs: Bilaterally clear without discernible wheeze, rales in all lung zones CVS: S1 S2, no murmurs Abdo: Soft, BS ok Ext 4: Minimal edema, peripheral perfusion with no cyanosis Neurological: Grossly non-focal Urinary Catheter Management^: 3-way Urethral CBI: Cath Placed During This Visit: yes Reason for Continuing Indwelling Catheter: Other Urinary Catheter Date of Insertion: 01/18/21 Urinary Catheter Time of Insertion: 11:45 A&P Additional A&P Information 1. Acute on chronic renal failure Baseline creatinine appears to be in the mid 2 range, he has a known history of membranous glomerulonephritis. Of note membranous may be secondary to variety of underlying etiology including solid organ tumors. It is unclear if he received any immunosuppressive therapy for this in the past. It is likely the acute kidney injury component is secondary to renal hypoperfusion in the setting of labile hemodynamics seen on hospitalization. Continue supportive therapy with IV fluids for the time being. I am in agreement with the other team members including Dr. Thompson that he would not be a candidate for hemodialysis. Avoid usual nephrotoxic agents Strict ins and outs No other specific diagnostic testing is necessary at this time. 2. Serum chemistry Noted to have an anion gap metabolic acidosis, likely secondary to renal failure. He is currently on oral bicarbonate, will switch his IV fluids to D5 with 3 amps of bicarb. 3. Obstructive uropathy Known high-grade neuroendocrine bladder cancer Management per Dr. Thompson, status post Anthony catheter placement and CBI Now has bilateral hydronephrosis Given age, comorbidities, long-term prognosis, I appreciate options are very limited for him. Palliative care consultation pending. Thank you for consultation > 25 min spent in eval and mgmt of her care Domingo Crowell MD Nephrology [phone] Consult Attestations Medical Necessity Statement: Eval for FABBY Coding Level of Care Code Acute Sliver Former for Geo Martinez
--- NOTE | 2021-01-21 15:45 | P.PN_ITS ---
Subjective Subjective: Interval history: Urine is still intermittently bloody but for the most part his CBI requirement has decreased substantially. Pain is better controlled and requiring less pain medication today. On exam today he is pretty lethargic and not really able to give a whole lot of information. Has been much clearer than today though according to nursing staff. Labs reviewed. Awaiting family's decision regarding direction of care now. We have had multiple long conversations regarding options including palliative type/hospice care. Extirpative therapy has also been reviewed but is not likely something that he would do well with. Kidney function would not tolerate dye load for embolization techniques. Given the progression of his disease with bilateral ureteral obstruction my recommendation has been to move toward palliative care/hospice care. Vitals/I&O/Wt Last Vital Signs Temp 98.2 F 01/21/21 11:42 Pulse 59 L 01/21/21 11:42 Resp 16 01/21/21 14:32 BP 152/61 01/21/21 11:42 Pulse Ox 96 01/21/21 11:42 01/21/21 01/21/21 01/21/21 06:59 14:59 22:59 Intake Total 1843.75 / 1843.75 Output Total 1050 / 1050 2450 / 2450 Balance -1050 / 53.75 -606.25 / -606.25 Physical Exam Narrative: EXAM NARRATIVE: Lethargic. No labored respiration or wheezing. Urine looks much better today. More yellow tent with minimal CBI running. Per nursing staff there has been intermittent gross hematuria requiring irriga tion and clot removal. Urinary Catheter Management^: 3-way Urethral CBI: Cath Placed During This Visit: yes Reason for Continuing Indwelling Catheter: Other Urinary Catheter Date of Insertion: 01/18/21 Urinary Catheter Time of Insertion: 11:45 Data : 01/21/21 03:05 01/21/21 03:05 A&P Assessment and plan (1) Bilateral hydronephrosis: Resulting in more rapid progressive renal failure. Status: Acute (2) Obstructive uropathy: Status: Acute (3) Gross hematuria: Improved but likely to recur given the underlying rapidly growing bladder cancer. Status: Acute (4) Bladder cancer: Not curable Status: Chronic Qualifiers: Bladder location: overlapping sites Qualified Code(s): C67.8 - Kita gnant neoplasm of overlapping sites of bladder Attestations Medical Necessity Statement*: See attending. 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
[2021-01-21] MEDS: HYDROmorphone 1 mg/mL INJ 1 mL IVP (16:32)
[2021-01-21] MEDS: morphine ER (12 HR) 15 mg Tablet PO (18:06)
[2021-01-22] VITALS (8 sets, daily range): BP systolic 150–169; BP diastolic 55–75; PULSE 57–67; RESP 16–20; TEMP 36.6–37.4; O2SAT 90–93
[2021-01-22] MEDS: sodium bicarbonate 150 MEQ in dextrose 5% 1,000 ML 100 MEQ IV (01:48)
[2021-01-22] MEDS: HYDROmorphone 1 mg/mL INJ 1 mL IVP ×2 (05:56→08:09)
[2021-01-22] MEDS: sodium bicarbonate 650 mg Tablet PO (08:11)
[2021-01-22] MEDS: midodrine 5 mg TABLET 10 MG PO (08:11)
[2021-01-22] MEDS: oxybutynin 5 mg Tablet PO (08:11)
[2021-01-22] MEDS: sennosides-docusate Tablet 1 TAB PO (08:11)
[2021-01-22] MEDS: morphine ER (12 HR) 15 mg Tablet PO (08:16)
--- NOTE | 2021-01-22 10:54 | PM.PN ---
Subjective Subjective: Interval history: Urology follow-up: Patient continues to dwindle. Still requiring substantial pain medication. Arouses at times but not very lucid. Long discussion with son again regarding options. I think it is finally settling in with him that trying to build him back up and improve him are no longer attainable goals. Symptomatic and palliative control needs to be the focus. He is no longer eating. Have recommended catheter removal prior to discharge, hold on aggressive catheter management, consider holding on IV resuscitation Reviewed with Dr. Castellanos as well. No additional recommendations from a urologic perspective. office services coordinator working with placement as well as hospice. Vitals/I&O/Wt Last Vital Signs Temp 97.9 F 01/22/21 07:49 Pulse 59 L 01/22/21 07:49 Resp 18 01/22/21 08:09 BP 156/64 01/22/21 07:49 Pulse Ox 92 01/22/21 07:49 01/21/21 01/22/21 01/22/21 22:59 06:59 14:59 Intake Total 1270 / 3113.75 Output Total 1350 / 3800 750 / 4550 Balance -1350 / -1956.25 520 / -1436.25 Physical Exam Narrative: EXAM NARRATIVE: Sedated, arousable but incoherent. Abdomen soft. Urine is clear. No additional new findings. Urinary Catheter Management^: 3-way Urethral CBI: Cath Placed During This Visit: yes Reason for Continuing Indwelling Catheter: Acute Urinary Retention or Obstruction Urinary Catheter Date of Insertion: 01/18/21 Urinary Catheter Time of Insertion: 11:45 Data : 01/21/21 03:05 01/21/21 03:05 Attestations Medical Necessity Statement*: See attending Time Spent in Patient Care: 50 minutes total time greater than 50% of that with family member discussing options. Coding Level of Care Code Acute Oxygraph Operator for Geo Martinez
--- NOTE | 2021-01-22 13:19 | P.PN_ITS ---
Subjective Subjective: Interval history: Patient was seen at the bedside, has not eaten since yesterday, son was also present in the room, we did go over his options regarding [facility] and hos pice care and increasing his opioids today and optimize his analgesia, also touch base with Dr. Thompson who is in agreement As per my discussion with disease case manager he might be able to go to [facility] on Sunday Vitals/I&O/Wt Last Vital Signs Temp 98.5 F 01/22/21 11:41 Pulse 57 L 01/22/21 11:41 Resp 20 H 01/22/21 11:41 BP 169/55 01/22/21 11:41 Pulse Ox 90 01/22/21 11:41 01/21/21 01/22/21 01/22/21 22:59 06:59 14:59 Intake Total 1270 / 3113.75 Output Total 1350 / 3800 750 / 4550 Balance -1350 / -1956.25 520 / -1436.25 Physical Exam Narrative: EXAM NARRATIVE: Patient was keeping his eyes closed when I entered the room Son at the bedside Complaining of pain in waves which she is describing as comes and goes Anthony catheter draining concentrated urine Complaining of my abdominal pain hypogastric region He was saturating well on room air, Urinary Catheter Management^: 3-way Urethral CBI: Cath Placed During This Visit: yes Reason for Continuing Indwelling Catheter: Acute Urinary Retention or Obstruction Urinary Catheter Date of Insertion: 01/18/21 Urinary Catheter Time of Insertion: 11:45 Data : 01/21/21 03:05 01/21/21 03:05 A&P Assessment and plan (1) Obstructive uropathy: Patient is currently getting hospice care and awaiting placement to a [facility] with hospice services, I would keep him on extended release morphine every 12 hours and Dilaudid 1 mg every hour along Ativan Discontinue his bicarb supplementation Changed his diet to clear liquid Son and disease case manager updated Case discussed with Dr. Thompson as well. Status: Acute (2) Bilateral hydronephrosis: Status: Acute (3) Gross hematuria: Status: Acute (4) Acute blood loss anemia: Status: Acute (5) Hospice care patient: Status: Acute (6) Abdominal pain: Status: Acute (7) Acute urinary retention: Status: Acute (8) Bladder cancer: Status: Chronic Qualifiers: Bladder location: overlapping sites Qualified Code(s): C67.8 - Malignant neoplasm of overlapping sites of bladder (9) Bladder outlet obstruction: Status: Acute (10) FABBY (acute kidney injury): Status: Acute (11) Fatigue: Status: Acute Qualifiers: Fatigue type: unspecified Qualified Code(s): R53.83 - Other fatigue Attestations Medical Necessity Statement*: To continue hospice care Time Spent in Patient Care: less than 15 minutes Coding Level 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
[2021-01-22] MEDS: morphine ER (12 HR) 15 mg Tablet 30 MG PO (17:30)
[2021-01-23] VITALS (7 sets, daily range): BP systolic 119–155; BP diastolic 58–70; PULSE 66–107; RESP 14–26; TEMP 36.7–39; O2SAT 28–92
[2021-01-23] MEDS: morphine ER (12 HR) 15 mg Tablet 30 MG PO (08:31)
--- NOTE | 2021-01-23 11:15 | PC.SOCIAL ---
IMM Updated Updated pt on Pg 2 IMM. Provided pt a copy. No questions voiced. Initialed, dated, timed copy in chart.
--- NOTE | 2021-01-23 11:29 | P.PN_ITS ---
Subjective Subjective: Interval history: Patient was seen at the bedside, he was much more awake alert today, he was eating his breakfast and asked for a soda We will advance his diet today, his diet was modified because of his lethargy and fatigue which has improved Endorsing his pain is under control with current analgesic regimen Vitals/I&O/Wt Last Vital Signs Temp 98.4 F 01/23/21 08:00 Pulse 81 01/23/21 08:00 Resp 14 01/23/21 08:00 BP 152/58 01/23/21 08:00 Pulse Ox 90 01/23/21 08:00 01/22/21 01/23/21 01/23/21 22:59 06:59 14:59 Intake Total 360 / 1510 120 / 1630 480 / 480 Output Total 1000 / 2500 Balance 360 / 10 -880 / -870 480 / 480 Physical Exam Narrative: EXAM NARRATIVE: Patient was in his bed eating breakfast Awake alert oriented x3 no neurological deficit S1, S2 sinus rhythm Anthony catheter draining concentrated urine Abdomen soft with mild tenderness in hypogastric region No acute respite distress No active chest pain Was saturating well on room air Lower extremity no edema Urinary Catheter Management^: 3-way Urethral CBI: Cath Placed During This Visit: yes Reason for Continuing Indwelling Catheter: Other Urinary Catheter Date of Insertion: 01/18/21 Urinary Catheter Time of Insertion: 11:45 Data : 01/21/21 03:05 01/21/21 03:05 A&P Assessment and plan (1) Hospice care patient: Status: Acute (2) Obstructive uropathy: Status: Acute (3) Bilateral hydronephrosis: Status: Acute (4) Gross hematuria: Status: Acute (5) Acute blood loss anemia: Status: Acute (6) Acute urinary retention: Status: Acute (7) Bladder cancer: Status: Chronic Qualifiers: Bladder location: overlapping sites Qualified Code(s): C67.8 - Malignant neoplasm of overlapping sites of bladder (8) Bladder outlet obstruction: Status: Acute (9) FABBY (acute kidney injury): Status: Acute Additional A&P Information 85-year-old male who has history of 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 fib, was admitted for management of acute on chronic kidney disease postobstructive uropathy secondary to worsening bladder tumor with bilateral hydronephrosis and puneet hematuria. He received 4 units of PRBC and 1 unit of platelets to keep his hemoglobin above 8, he required CBI for about a week, CBI has been turned off, hematuria has improved, urine color has become yellow without any signs of hematuria, however bladder cancer is still causing obstruction of the ureters bilaterally, Dr. Thompson is not planning to intervene considering high risk for mortality and mobility due to increased vascularization of tumor and possibility of demise due to hemor rhagic shock, multiple family meetings has been conducted, son has opted for hospice care services at the same long-term where Mrs. 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 Adequate urine output however at risk of worsening of kidney function, not an ideal candidate for dialysis Nephrology recommendations appreciate Pain under control with current analgesic regimen Patient is awaiting placement to long-term most likely on Sunday with hospice services provided by [facility] Attestations Medical Necessity Statement*: Awaiting placement to long-term with hospice care Time Spent in Patient Care: less than 15 minutes Coding Level of Care Code 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
[2021-01-23] MEDS: HYDROmorphone 1 mg/mL INJ 1 mL IVP (18:01)
[2021-01-24 04:00] VITALS: BP 108/59; PULSE 98; RESP 13; TEMP 38.3; O2SAT 28
[2021-01-24 07:28] VITALS: RESP 22
[2021-01-24 07:49] VITALS: BP 106/59; PULSE 97; RESP 22; TEMP 38.4; O2SAT 38
--- NOTE | 2021-01-24 12:30 | P.PN_ITS ---
Subjective Subjective: Interval history: Patient was seen and examined this morning continue to be critically ill, continue to be least responsive. Patient is currently on comfort care. Vitals/I&O/Wt Last Vital Signs Temp 101.2 F H 01/24/21 07:49 Pulse 97 01/24/21 07:49 Resp 22 H 01/24/21 07:49 BP 106/59 01/24/21 07:49 Pulse Ox 38 L 01/24/21 07:49 01/23/21 01/24/21 01/24/21 22:59 06:59 14:59 Intake Total 0 / 480 0 / 480 Output Total 500 / 500 Balance -500 / -20 0 / -20 Physical Exam Narrative: EXAM NARRATIVE: Currently alert oriented x0 HENMT: COMMON NORMALS: normocephalic and atraumatic HEAD & SCALP: normocephalic and atraumatic Resp: COMMON NORMALS: clear to auscultation bilaterally AUSCULTATION: clear to auscultation bilaterally Cardio: COMMON NORMALS: regular rate, regular rhythm, S1 normal heart sound present, S2 normal heart sound present, No gallops present (Cardio), No murmurs present (Cardio), No rub (Cardio) and Peripheral pulses 2+ throughout RATE: regular rate RHYTHM: regular rhythm HEART SOUNDS: S1 normal heart sound present and S2 normal heart sound present PERIPHERAL PULSES: Peripheral pulses 2+ throughout GI: COMMON NORMALS: Normal to inspection, nondistended, normoactive bowel sounds present, Soft to palpation, non-tender, No hepatosplenomegaly present and no masses AUSCULTATION: Yes normoactive bowel sounds PALPATION: Yes Soft to palpation and Yes No hepatosplenomegaly present RECTAL EXAM: Yes deferred Urinary Catheter Management^: 3-way Urethral CBI: Cath Placed During This Visit: yes Reason for Continuing Indwelling Catheter: Other Urinary Catheter Date of Insertion: 01/18/21 Urinary Catheter Time of Insertion: 11:45 Data : 01/21/21 03:05 01/21/21 03:05 A&P Assessment and plan (1) Hospice care patient: Status: Acute (2) Obstructive uropathy: Patient is currently getting hospice care and awaiting placement to a detention with hospice services, I would keep him on extended release morphine every 12 hours and Dilaudid 1 mg every hour along Ativan Discontinue his bicarb supplementation Changed his diet to clear liquid Son and case supervisor updated Case discussed with Dr. Thompson as well. 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 fib, was admitted for management of acute on chronic kidney disease postobstructive uropathy secondary to worsening bladder tumor with bilateral hydronephrosis and puneet hematuria. He received 4 units of PRBC and 1 unit of platelets to keep his hemoglobin above 8, he required CBI for about a week, CBI has been turned off, hematuria has improved, urine color has become yellow without any signs of hematuria, however bladder cancer is still causing obstruction of the ureters bilaterally, Dr. Thompson is not planning to intervene considering high risk for mortality and mobility due to increased vascularization of tumor and possibility of demise due to hemorrhagic shock, multiple family meetings has been conducted, son has opted for hospice care services at the same detention where Mrs. 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 Currently he is on comfort care Attestations Medical Necessity Statement*: Currently awaiting placement to detention. 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
[2021-01-24 14:57] VITALS: BP 101/55; PULSE 95; RESP 22; TEMP 37.7; O2SAT 41
--- NOTE | 2021-01-24 14:58 | PC.NURSE ---
Patient is on Comfort Care
--- NOTE | 2021-01-24 18:09 | PM.PN ---
Subjective Subjective: Interval history: Urology follow-up: No further problems with catheter bleeding. Yesterday he had an opportunity to visit with his . During that time both she (Long history of Alzheimer's) and he had about 2 hours of much more lucid cognitive function than they had for a while. Family had a chance to participate. Since that time he has been essentially not arousable. On palliative care. Plan still being final[place] [facility] etc. No further urologic recommendations at this point. Can remove Anthony at any point. Vitals/I&O/Wt Last Vital Signs Temp 99.9 F H 01/24/21 14:57 Pulse 95 01/24/21 14:57 Resp 22 H 01/24/21 14:57 BP 101/55 01/24/21 14:57 Pulse Ox 41 L 01/24/21 14:57 01/24/21 01/24/21 01/24/21 06:59 14:59 22:59 Intake Total 0 / 480 0 / 0 Output Total 400 / 400 Balance 0 / -20 0 / 0 -400 / -400 Physical Exam Narrative: EXAM NARRATIVE: Not arousable. No acute distress. Urinary Catheter Management^: 3-way Urethral CBI: Cath Placed During This Visit: yes Reason for Continuing Indwelling Catheter: Hospice/Comfort/Palliative Care Urinary Catheter Date of Insertion: 01/18/21 Urinary Catheter Time of Insertion: 11:45 Data : 01/21/21 03:05 01/21/21 03:05 A&P Assessment and plan (1) Bilateral hydronephrosis: Status: Acute (2) Obstructive uropathy: Status: Acute (3) Bladder cancer: Status: Chronic Qualifiers: Bladder location: overlapping sites Qualified Code(s): C67.8 - Malignant neoplasm of overlapping sites of bladder Additional A&P Information I will hold off at this point on any further following. Please call if you have any concerns or questions regarding urologic concerns. I have spoken with the son at length again and he is comfortable with where we stand at this point. No further questions expressed. Attestations Medical Necessity Statement*: See attending Coding Level of Care Code Acute Machine Adjuster Leader Case Trim for Geo Fwd Diagnoses Bilateral hydronephrosis N13.30 Obstructive uropathy N13.9 Bladder cancer C67.8 Bladder location: overlapping sites
[2021-01-24 19:35] VITALS: BP 106/65; PULSE 91; RESP 24; TEMP 36.8; O2SAT 44
--- NOTE | 2021-01-24 22:45 | PC.NURSE ---
: At 2204 entered the pt room, he took one breath and then stopped breathing. No pulse felt, no breath sounds or heart tones heard. Verified with second nurse, time called at 2207. parking supervisor and Physician notified. Family was not at the bedside, attempt to notify family unsuccessful, left messages on both numbers available in the chart. MTS notified and the patient was not a candidate for donation and was released.
--- NOTE | 2021-01-24 23:30 | PC.NURSE ---
Attempted to notify family again, called all three numbers listed in the chart and left a message on both numbers available with voice messaging. Pt will be taken to the morgue at this time.
--- NOTE | 2021-01-25 05:26 | PC.NURSE ---
Spoke with the patient's son this morning and gave him an update on the patient. [facility] in [facility] was selected.
--- NOTE | 2021-01-25 12:43 | PM.DDS ---
Discharge Providers DDS Date of Admission: 01/18/21 13:01 Date Summary Completed: 01/25/21 Attending Provider at Admission: Soniya Castellanos MD Time of : 22:07 Attending Provider at Discharge: Anatoliy Quezada MD Primary Care Provider: Dima WALLACE Diagnoses Hospital Diagnoses (1) Hospice care patient: (2) Obstructive uropathy: (3) Bilateral hydronephrosis: (4) Gross hematuria: (5) Acute blood loss anemia: (6) Acute urinary retention: (7) Bladder cancer: Qualifiers: Bladder location: overlapping sites Qualified Code(s): C67.8 - Malignant neoplasm of overlapping sites of bladder (8) Bladder outlet obstruction: (9) FABBY (acute kidney injury): (10) Need for comfort care: Reason for Visit Reason for Visit: SEVERE ABD & GROIN PAIN, BLEEDING FROM PENIS Summary Date and Time of Date of : 01/25/21 Time of : 22:07 Summary Summary: 85-year-old male who has history of 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 fib, was admitted for management of acute on chronic kidney disease postobstructive uropathy secondary to worsening bladder tumor with bilateral hydronephrosis and will hematuria. He received 4 units of PRBC and 1 unit of platelets to keep his hemoglobin above 8, he required CBI for about a week, CBI was later turned off, hematuria has improved, urine color has become yellow without any signs of hematuria, however bladder cancer was still causing obstruction of the ureters bilaterally, Dr. Thompson was not planning to intervene considering high risk for mortality and mobility due to increased vascularization of tumor and possibility of demise due to hemorrhagic shock, multiple family meetings were done and finally given the overall poor prognosis family decided to make the patient comfort care. Family wish was honored.Patient peacefully on 24 January 2021 at 10:07 PM. Family was informed. Additional Data Confirmation of as documented by pronouncing clinician: no pulse, no respirations, no heart sounds and pupils fixed and dilated Family: contacted Attending/PCP notified?: I am attending Was code activated?: No Autopsy requested?: No Advance directives?: Yes Hospice patient?: Yes Discharge Plan Discharge Patient Disposition: Condition: Stable DS Attestations Time Spent in /Discharge Care*: less than 30 min Quality - AMI: AMI present?: No Quality - Stroke: CVA present?: No Symptom Onset Unknown: No Quality - VTE: VTE present?: No Deep Vein Thrombosis/Pulmonary Embolism Present on Admission: No Coding Level of Care Code Acute Interventional Physiatrist for g Fwd Diagnoses Hospice care patient Z51.5 Obstructive uropathy N13.9 Bilateral hydronephrosis N13.30 Gross hematuria R31.0 Acute blood loss anemia D62 Acute urinary retention R33.8 Bladder cancer C67.8 Bladder location: overlapping sites Bladder outlet obstruction N32.0 FABBY (acute kidney injury) N17.9 Need for comfort care
== END 2021-01-24 23:30 | disposition expired | DRG 844 ==
LOC: ER 13:52 → ER IP 01-19 05:18 → MEDSURG 01-19 05:18
PROVIDERS: Admitting Provider Internal Medicine; Emergency Provider Emergency Medicine; PCP Family Medicine; Visit Provider Internal Medicine
DX: C7A.1 Malignant poorly differentiated neuroendocrine tumors (principal); D62 Acute posthemorrhagic anemia; N18.4 Chronic kidney disease, stage 4 (severe); N17.9 Acute kidney failure, unspecified; N13.39 Other hydronephrosis; R31.0 Gross hematuria; I25.10 Atherosclerotic heart disease of native coronary artery without angina pectoris; Z95.1 Presence of aortocoronary bypass graft; E11.22 Type 2 diabetes mellitus with diabetic chronic kidney disease; I12.9 Hypertensive chronic kidney disease with stage 1 through stage 4 chronic kidney disease, or unspecified chronic kidney disease; M10.9 Gout, unspecified; E78.5 Hyperlipidemia, unspecified; Z87.891 Personal history of nicotine dependence; N32.0 Bladder-neck obstruction; I48.91 Unspecified atrial fibrillation; I95.89 Other hypotension; Z66 Do not resuscitate; Z51.5 Encounter for palliative care; G89.3 Neoplasm related pain (acute) (chronic); E87.5 Hyperkalemia
CPT/HCPCS: 36415; 36430; 51702; 74176; 80048; 80053; 81001; 83540; 83550; 85014; 85018; 85025; 85610; 85730; 86850; 86900; 86920; 96361; 96374; 96375; 96376; 99214; 99285; J0610; J1170; J2060; J2270; J7030; J7040; P9016; Q3014